=== PATIENT | male | born 1985 | race Caucasian/White ===

== ENCOUNTER 2019-11-17 19:04 | Emergency (ER) | payer SELFPAY ==
[2019-11-17 19:06] VITALS: BP 171/106; PULSE 106; RESP 16; O2SAT 99; BMI 30.7
--- NOTE | 2019-11-17 19:09 | XR_ITS ---
WS: [id number] KNEE RIGHT TECHNIQUE: 3 views of the right knee CLINICAL INFORMATION: INJURY COMPARISON: None. FINDINGS: Normal anatomic alignment. Mild soft tissue edema. No acute fractures. Small osteochondroma medial fe moral metaphysis XR/XR knee RT 3V* [id number] IMPRESSION: No acute fractures
--- NOTE | 2019-11-17 19:10 | W.ED.GENADLT ---
HPI - General Adult General: Chief complaint: Wound/Laceration Stated complaint: leg pain Time Seen by Provider: 11/17/19 19:06 History of Present Illness: HPI narrative: Stephane is a nice 34-year-old male who comes in complaining of increasing swelling and redness to his skin over his right knee. Approximately 9 days ago he was at work when he skinned his knee and had an abrasion that slowly been healing. The area has opened up and now he has redness on the skin surrounding this area. It is spreading mostly laterally and inferiorly from his wound. He denies any fevers or chills. He denies any nausea or vomiting. Associated symptoms: Deny chest pain, confusion, diaphoresis, dyspnea, headache(s), malaise, nausea, palpitations, syncope or vomiting Review of Systems General: Reports: other (negative unless marked) Const: Denies: fever, chills, body aches, fatigue, malaise or diaphoresis Eyes: Denies: change in vision or blurry vision ENMT: Denies: throat pain, painful swallowing, hoarseness, ear pain, ear discharge, Change in hearing or nasal discharge Card: Denies: chest pain, palpitations, irregular heart rhythm, syncope, pre-syncope, shortness of breath on exertion or shortness of breath when lying down Resp: Denies: shortness of breath, productive cough, non-productive cough, wheezing, coughing up blood or chest congestion GI: Denies: abdominal pain, nausea, vomiting, vomiting blood, coffee grounds in vomit, diarrhea, constipation, cramping, blood in stool or black tarry stool : Denies: flank pain, difficulty urinating, painful urination, urinary frequency, urinary urgency, decreased urine ouput, urinary incontinence or blood in urine Musc: Denies: neck pain, back pain, extremity pain, extremity swelling, joint pain, joint swelling, joint warmth or joint stiffness Neuro: Denies: headache, numbness in extremities, weakness in extremities, changes in sensation, lack of coordination, difficulty walking, dizziness, vertigo or confusion Endo: Denies: excessive thirst, tired all the time, cold intolerance, excessive sweating, flushing or hot flashes Bernardo/Lymph: Denies: easy bruising, easy bleeding, petechiae or enlarged lymph nodes All/Imm: Denies: hives, throat swelling, tongue swelling, facial swelling or acute wheezing PFSH ED PFSH: Medical History Anxiety Social History Smoking and tobacco status: never smoked Physical Exam Const: COMMON NORMALS: no apparent distress, oriented x3, no limitations, healthy appearing and well nourished EXAM LIMITATIONS: no altered mental status GENERAL APPEARANCE: cooperative, well kempt and well developed ORIENTATION/CONSCIOUSNESS: Yes awake HENMT: COMMON NORMALS: normocephalic, head/scalp atraumatic, hearing grossly normal bilaterally, external ears normal, EAC's normal, external nose normal and moist oral mucous membranes HEAD & SCALP: normal to inspection, normocephalic and atraumatic FACE & SINUS: normal facial exam and face symmetric NOSE: external nose normal and nares normal EXTERNAL EAR: Yes external ears normal EXTERNAL AUDITORY CANAL: EAC's normal MOUTH: oral and palatal mucosa normal and tongue normal Eye: COMMON NORMALS: PERRL, EOMs intact bilaterally, conjunctivae normal and no scleral icterus GENERAL EYE: normal appearance of both eyes and normal light reflex CONJUNCTIVA: Yes conjunctivae normal SCLERA: sclerae normal CORNEA: Yes corneas normal PUPIL: Yes PERRL DIRECT OPHTHALMOSCOPY: Yes normal light reflex Neck/C-Spine: COMMON NORMALS: full ROM, no lymphadenopathy, supple, no meningeal signs and no JVD GENERAL: Yes normal visual inspection and Yes trachea midline CERVICAL SPINE: Yes cervical ROM normal Chest: COMMONS NORMALS: inspection of chest normal and palpation of chest normal Resp: COMMON NORMALS: normal respiratory effort, no retractions, no use of accessory muscles and clear to auscultation bilaterally EFFORT & INSPECTION: Yes able to speak in complete sentences AUSCULTATION: clear to auscultation bilaterally Cardio: COMMON NORMALS: no JVD, regular rate, regular rhythm, S1 normal heart sound, S2 normal heart sound, no gallops, no clicks, no murmurs and no rub JUGULAR VENOUS DISTENTION: no JVD RATE: regular rate RHYTHM: regular rhythm HEART SOUNDS: S1 normal and S2 normal GI: COMMON NORMALS: soft to palpation, non-tender, no hepatosplenomegaly and no masses INSPECTION: Yes normal to inspection PALPATION: Yes soft and Yes no hepatosplenomegaly : COMMON NORMALS: Yes no CVA tenderness BLADDER/KIDNEY EXAM: Yes no CVA tenderness Back/Pelvis: COMMON NORMALS: no CVA tenderness, thoracic and lumbar spine normal to inspection, no thoracic nor lumbar tenderness and thoraco-lumbar ROM normal Extremity: COMMON NORMALS: normal to inspection, full ROM, normal capillary refill, no joint enlargement, no clubbing, cyanosis or edema and no calf tenderness Neuro: COMMON NORMALS: oriented x3, CN's II-XII intact bilaterally, moves all extremities, no focal motor deficits and no sensory deficits noted MENINGEAL SIGNS: Yes no meningeal signs Psych: COMMON NORMALS: mental status grossly normal, thought process normal, cooperative, affect normal, speech normal and activity/motor behavior normal APPEARANCE: Yes well kempt SPEECH: Yes normal speech THOUGHT PROCESS: normal thought process Skin: COMMON NORMALS: skin turgor normal, no jaundice, no petechiae and no mottling NARRATIVE SKIN EXAM: Healing abrasion noted over right lateral knee with surrounding cellulitis. GENERAL SKIN EXAM: turgor normal Course Vital Signs: Vital signs: Vital Signs Pulse Rate 106 H 11/17/19 19:06 Respiratory Rate 16 11/17/19 19:06 Blood Pressure 171/106 11/17/19 19:06 Pulse Oximetry 99 11/17/19 19:06 MDM - General Adult MDM Narrative: Medical decision making narrative: Stephane is a very nice 34-year-old male comes in after having scraped his knee several days ago he has had his scab reopened. He denies any foreign body sensation and he states when he skinned it he did not have anything go through his jeans and poked him in the skin it was just a simple abrasion. He appears to have some mild cellulitis associated with this at this time. He is able to walk and bear weight without any increased pain or limp. He has had no fever. I believe he is appropriate for outpatient therapy. There is no sign of deep space foreign body or joint infection at this time. Patient was given instructions on the reasons to return to the ER and he states he understands these, he has no other questions or concerns. Imaging Data^: Right knee: My impression: No acute fractures or dislocations. No foreign body seen. Discharge Plan Discharge Patient Disposition: Home, Self-Care Clinical Impression: Cellulitis Qualifiers: Site of cellulitis: extremity Site of cellulitis of extremity: lower extremity Laterality: right Qualified Code(s): L03.115 - Cellulitis of right lower limb Condition: Stable Prescriptions: New Bactrim DS 800-160 mg tablet 2 tab PO BID 10 Days Qty: 40 RF: 0 Discharge Orders: Discharge Order (Routine); Ordered 11/17/19 Ordered By: Jen Gomes Referrals: Jen Gomes [Emergency Provider] - (Return to the ER in 3 days if your area of infection is got getting worse. Otherwise follow-up with your regular doctor the next 5 to 7 days for recheck.) Discharge Diet: Advance as tolerated Discharge Activity: Increase activity as tolerated Patient Instructions: Cellulitis (ED) Activity Restrictions/Additional Instructions: Please return to the ER immediately for any of the signs or symptoms listed on your discharge instruction sheets, worsening/changing of your symptoms, you are not getting better as quickly as expected, or for ANY other cause or concerns. Return to the ER for fever, increased redness around your abrasion, increased pain, or for any other cause for concern. Be certain to return here if your wound is getting worse otherwise follow-up with your regular doctor in the next 5 to 7 days. Coding Level of Care Code ED Events Specialist for Mack Leung Exam Comprehensive
[2019-11-17] MEDS: sulfamethoxazole-trimeth DS 160-800 mg Tablet 2 TAB PO (19:51)
[2019-11-17 19:55] VITALS: BP 132/78; PULSE 68; RESP 16; O2SAT 99
== END 2019-11-17 19:56 | disposition home or self-care (01) ==
PROVIDERS: Emergency Provider Emergency Medicine
DX: L03.115 Cellulitis of right lower limb (principal)
CPT/HCPCS: 12345; 73562; 99281; 99283

== ENCOUNTER 2020-03-09 07:54 | Emergency (ER) | payer SELFPAY ==
[2020-03-09 08:00] VITALS: BP 147/104; PULSE 92; RESP 18; TEMP 36.1; O2SAT 100; BMI 32.5
--- NOTE | 2020-03-09 08:12 | ED_ITS ---
HPI - Extremity Problem General: Chief complaint: Extremity Injury, Lower Stated complaint: Left foot toe pain Time Seen by Provider: 03/09/20 07:59 History of Present Illness: HPI Narrative: Patient is a 34-year-old male comes to the ED with left great toe pain. Patient has had an episode of gout before approximately 3 to 4 months ago. Patient says it started approximately 7 days ago. Any touch to his great toe was painful and he has some erythema and warmth over the great toe as well. He was seen by urgent care on Sunday and they diagnosed him with gout and gave him dose of colchicine. Patient says the pain has not improved. He is also having some lower leg swelling with some tenderness in the mid calf region. Associated symptoms: Deny chest pain, fever(s) or rash Review of Systems Const: Denies: fever(s), chills or fatigue Eyes: Denies: change in vision or eye discomfort ENMT: Denies: throat pain, odynophagia, nasal discharge or nasal congestion Card: Denies: chest pain, palpitations, edema, swelling of feet/ankles, dyspnea on exertion or orthopnea Resp: Denies: dyspnea, productive cough or non-productive cough GI: Denies: abdominal pain, nausea, vomiting, diarrhea, constipation or hematochezia : Denies: flank pain, difficulty urinating, dysuria or hematuria Musc: Reports: joint pain (left great toe), joint redness (left great toe) and joint warmth (left great toe); Denies: neck pain, back pain or extremity swelling Skin/Breast: Denies: rash or new lesions Neuro: Denies: headache(s), numbness in extremities or weakness in extremities PFS ED PFSH: Medical History Anxiety Social History Smoking and tobacco status: never smoked Alcohol intake: current Physical Exam Const: COMMON NORMALS: no acute distress, patient oriented x3, healthy appearing and alert GENERAL APPEARANCE: cooperative HENMT: COMMON NORMALS: normocephalic HEAD & SCALP: normocephalic MOUTH: Normal oral and palatal mucosa present THROAT: posterior oropharynx normal and uvula midline Neck/C-Spine: COMMON NORMALS: supple GENERAL: Yes normal visual inspection Resp: COMMON NORMALS: normal respiratory effort, No retractions, No use of accessory muscles and clear to auscultation bilaterally AUSCULTATION: clear to auscultation bilaterally Cardio: COMMON NORMALS: regular rate, regular rhythm, S1 normal heart sound present, S2 normal heart sound present, No gallops present (Cardio), No clicks present (Cardio), No murmurs present (Cardio) and Peripheral pulses 2+ throughout RATE: regular rate RHYTHM: regular rhythm HEART SOUNDS: S1 normal heart sound present and S2 normal heart sound present PERIPHERAL PULSES: Peripheral pulses 2+ throughout GI: COMMON NORMALS: Normal to inspection, nondistended, normoactive bowel sounds present, Soft to palpation, non-tender and no masses PALPATION: Yes Soft to palpation : COMMON NORMALS: Yes no CVA tenderness BLADDER/KIDNEY EXAM: Yes no CVA tenderness Back/Pelvis: COMMON NORMALS: no CVA tenderness Extremity: NARRATIVE EXTREMITY EXAM: Patient's left great toe is tender to any touch, swelling, warmth and has erythema over metatarsophalangeal joint. Findings highly suggestive of gout. Patient also has some left calf tenderness upon palpation. GENERAL: Yes normal exam except as noted Neuro: COMMON NORMALS: patient oriented x3 and moves all extremities SENSORIUM/ORIENTATION: Yes alert Skin: COMMON NORMALS: no rashes or lesions noted GENERAL SKIN EXAM: no rashes or lesions noted and dry skin Course Vital Signs: Vital signs: Vital Signs Temperature 96.9 F L 03/09/20 08:00 Pulse Rate 70 03/09/20 08:56 Respiratory Rate 16 03/09/20 08:56 Blood Pressure 134/70 03/09/20 08:56 Pulse Oximetry 97 03/09/20 08:56 MDM - Extremity (Nontraumatic) MDM Narrative: Medical decision making narrative: Patient is a 34-year-old male who comes to the ED with pain in left great toe. Patient is past medical history of gout. Physical exam shows left great toe with swelling, erythema, warmth and tenderness over the joint. Patient was also experiencing some left calf tenderness. Ultrasound venous duplex of the left lower extremity was ordered and no blood clots or DVTs were seen. Patient was put on colchicine several days ago and it did not help. Today patient is given a prescription for prednisone, indomethacin and allopurinol. I directed him to follow-up with his PCP within the next 7 to 10 days to reevaluate. Return to ED precautions given. Patient understood and agreed with plan. Imaging Data^: US Vascular: Attestation: I personally reviewed and interpreted this imaging study as follows: Radiologist's impression: Ultrasound venous duplex of the left lower extremity?no DVTs or blood clots seen. Discharge Plan Discharge Patient Disposition: Home Clinical Impression: Acute gout Qualifiers: Gout site: toe Gout etiology: unspecified cause Laterality: left Qualified Code(s): M10.9 - Gout, unspecified Condition: Stable Prescriptions: New allopurinol 100 mg tablet 100 mg PO DAILY 21 Days Qty: 21 RF: 0 Medrol (Carlos) 4 mg tablets,dose pack See Rx Instructions .ROUTE .COMPLEX Qty: 21 RF: 0 indomethacin 50 mg capsule 50 mg PO TID 5 Days Qty: 15 RF: 0 No Action sertraline [Zoloft] 50 mg tablet 50 mg PO DAILY RF: 0 vitamin B complex Tablet 1 tab PO DAILY RF: 0 Vitamin C 1 tab PO DAILY RF: 0 apple cider vinegar 1 tab PO DAILY RF: 0 Discharge Orders: Discharge Order (Routine); Ordered 03/09/20 Ordered By: Amilcar Daly Referrals: Emilie Galvez FNP [Primary Care Provider] - Discharge Diet: As Directed Discharge Activity: Increase activity as tolerated Patient Instructions: Gout, Acute Gouty Arthritis (ED) Activity Restrictions/Additional Instructions: Follow-up with medical provider as directed in 7-10 days. Starting you on allopurinol which is a med that helps prevent gout flareups. This dose needs to be titrated up so follow up with PCP in the next couple weeks to discuss changing dose. Take medications as prescribed. Eat a low purine diet to help prevent acute gout attacks-Avoid/limit intake of alcohol and some meats like sausage. Return to the ER or your medical provider if condition worsens. Please read and understand discharge instructions. If any questions, please ask. Discharge Date/Time: 03/09/20 08:58 Coding Level of Care Code ED Pointer Machine Operator for Mack Fwjacob Exam Comprehensive
--- NOTE | 2020-03-09 08:14 | USCV_ITS ---
RamonaAnthony hayes Age: 34 Gender: M : 1985 Exam Date: 03/09/2020 08:31 Ordering Phys: Amilcar Daly Technologist: Anaid Galdamez [place] [facility] [place]: LT CALF PAIN HISTORY: LT lower extremity pain. FINDINGS: Normal 2-D Doppler and augmentation and compressibility throughout the left lower extremity venous structures. Additional imaging through the proximal calf veins also reveals no thrombus. Limited evaluation of the greater saphenous vein is patent with no thrombus.. CONCLUSIONS No evidence of left lower extremity DVT. David Olivera MD (Electronically Signed) Final Date: 09 March 2020 10:44 S
[2020-03-09 08:56] VITALS: BP 134/70; PULSE 70; RESP 16; O2SAT 97
[2020-03-09] MEDS: predniSONE 20 mg Tablet 60 MG PO (08:58)
== END 2020-03-09 08:58 | disposition home or self-care (01) ==
PROVIDERS: Emergency Provider Physician Assistant; PCP Nurse Practitioner Family
DX: M10.9 Gout, unspecified (principal)
CPT/HCPCS: 12345; 93971; 99283; J7512

== ENCOUNTER 2020-06-17 19:06 | Emergency (ER) | payer SELFPAY ==
[2020-06-17 19:34] VITALS: BP 173/91; PULSE 75; RESP 17; TEMP 36.8; O2SAT 97; BMI 31.6
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
[2020-06-17 19:56] VITALS: BP 133/98; PULSE 64; RESP 14; O2SAT 96
== END 2020-06-17 19:58 | disposition home or self-care (01) ==
PROVIDERS: Emergency Provider Nurse Practitioner Family; PCP Nurse Practitioner Family
DX: K21.00 Gastro-esophageal reflux disease with esophagitis, without bleeding (principal)
CPT/HCPCS: 12345; 99281; 99282

== ENCOUNTER 2021-04-02 22:05 | Emergency (ER) | payer OTHER, SELFPAY ==
--- NOTE | 2021-04-02 03:22 | XRR_ITS ---
PROCEDURE INFORMATION: Exam: XR Chest Exam date and time: 04/02/2021 3:22 AM Age: 35 years old Clinical indication: Pain; Right-sided; Additional info: R sided pain TECHNIQUE: Imaging protocol: XR of the chest. Views: 1 view. COMPARISON: CR Chest 1 [place] [id number] 06/22/2019 12:15 PM FINDINGS: Lungs: No CHF/pulmonary edema. Subtle opacity seen in the right costophrenic angle. This probably represents the area of parenchymal opacity seen on the earlier CT Abdomen/Pelvis. The other subtle area of opacity in the lower left lingula may be faintly visible on the chest x-ray, difficult to be certain. The overall appearance is suspicious for possible pneumonitis, please correlate clinically. Visible lungs otherwise appear essentially clear. Pleural spaces: No visible pneumothorax. No definite pleural fluid. Heart/Mediastinum: Heart size is within normal limits. Bones/joints: No significant acute finding. XR/XR chest 1V portable [id number] IMPRESSION: 1. Subtle opacity seen in the right costophrenic angle. This probably represents the area of parenchymal opacity seen on the earlier CT Abdomen/Pelvis. The other subtle area of opacity in the lower left lingula may be faintly visible on the chest x-ray, difficult to be certain. The overall appearance is suspicious for possible pneumonitis, please correlate clinically. 2. Visible lungs otherwise appear essentially clear. 3. Other findings discussed above.
[2021-04-02 22:10] VITALS: PULSE 71; RESP 16; TEMP 36.8; O2SAT 96; BMI 29.8
--- NOTE | 2021-04-02 22:52 | CTR_ITS ---
PROCEDURE INFORMATION: Exam: CT Abdomen And Pelvis With Contrast Exam date and time: 04/02/2021 10:52 PM Age: 35 years old Clinical indication: Abdominal pain; Generalized; Prior surgery; Surgery date: 6+ months; Surgery type: Appy; Patient HX: C/O R sided abd pain w nausea; Additional info: Right abd pain TECHNIQUE: Imaging protocol: Computed tomography of the abdomen and pelvis with contrast. Radiation optimization: All CT scans at this facility use at least one of these dose optimization techniques: automated exposure control; mA and/or kV adjustment per patient size (includes targeted exams where dose is matched to clinical indication); or iterative reconstruction. Contrast material: OMNI 300; Contrast volume: 95 ml; Contrast route: INTRAVENOUS (IV); COMPARISON: CT Abdomen/Pelvis Renal [id number] 12/16/2018 10:45 PM RADIATION DOSE METRICS: Total DLP (mGy-cm): 1415.31 FINDINGS: Lungs: Areas of parenchymal opacity in both lateral lower lungs, more prominent on the right. These are suspicious are areas of focal pneumonitis. Please correlate clinically. No pleural fluid. Liver: Unremarkable. Gallbladder and bile ducts: The gallbladder is partially contracted. No visible gallstones by CT. Ultrasound would be more sensitive for detecting gallstones, if clinically needed. No biliary tree dilation. Pancreas: Unremarkable. Spleen: Unremarkable. Adrenal glands: Unremarkable. Kidneys and ureters: No hydronephrosis of either kidney. No visible ureteral calculus. No perinephric fluid. The kidneys enhance homogeneously. Stomach and bowel: There are no CT findings to strongly suggest diverticulitis. Appendix: Reportedly, there has been prior appendectomy. Intraperitoneal space: No free air, ascites, or bowel distention. Vasculature: No evidence for abdominal aortic aneurysm. Lymph nodes: No retroperitoneal adenopathy. Urinary bladder: Possibly some mild diffuse urinary bladder wall thickening. Evaluation is somewhat limited, as the bladder is not well distended. While nonspecific, this could indicate evidence for cystitis. Please correlate clinically. Reproductive: Essentially unremarkable for age. Bones/joints: There is bilateral L5 spondylolysis, with grade 1 spondylolisthesis, similar to prior exam. Soft tissues: Very small umbilical hernia, containing only fat. CT/CT abdomen pelvis w con* [id number] IMPRESSION: 1. No free air or bowel distention. No evidence for bowel obstruction. 2. Possible mild urinary bladder wall thickening, see above. 3. No hydronephrosis of either kidney. No visible ureteral calculus. No perinephric fluid. 4. No visible gallstones by CT. 5. Lower lung opacities, see above. 6. Other findings discussed above. Radiation Dose CTDIVOL = (mGy): DLP = 1415.31 (mGy-cm)
[2021-04-02 23:05] VITALS: BP 123/83; PULSE 75; RESP 18; O2SAT 98
[2021-04-02] MEDS: sodium chloride 0.9% 1,000 ML 999 ML IV (23:06)
[2021-04-02] MEDS: iohexol 300 mg/mL 100 mL Btl IV (23:24)
[2021-04-02 23:33] LABS: Basophils # 0.1 10^3/uL (0.0-0.1); Basophils % 0.6 %; Eosinophils # 0.6 10^3/uL (0.0-0.8); Eosinophils % 3.3 %; Hematocrit 40.4 % (42.0-52.0); Hemoglobin 13.7 g/dL (11.7-16.6); Lymphocytes # 4.9 10^3/uL (0.8-4.8); Lymphocytes % 26.1 %; Mean Corpuscular HGB Conc 33.9 g/dL (30.0-36.0); Mean Corpuscular Hemoglobin 33.3 pg (28.0-34.0); Mean Corpuscular Volume 98.1 fl (80-94); Mean Platelet Volume 9.4 fL (7.4-10.4); Monocytes # 1.3 10^3/uL (0.2-0.9); Monocytes % 6.9 %; Neutrophils # 11.03 10^3/uL (1.8-7.7); Neutrophils % 58.9 %; Nucleated Red Blood Cells % 0 %; Platelet Count 350 10^3/cmm (130-400); Red Blood Count 4.12 10^6/uL (4.1-5.3); Red Cell Distribution Width 12.2 % (12.1-15.1); White Blood Count 18.7 10^3/uL (4.0-10.0)
[2021-04-02 23:35] LABS: Alanine Aminotransferase 12 U/L (0-41); Albumin Level 3.8 g/dL (3.5-5.2); Alkaline Phosphatase 83 IU/L (40-130); Anion Gap 15.3 (5-19); Aspartate Amino Transferase 14 U/L (0-40); Blood Urea Nitrogen 12 mg/dL (6-20); C Reactive Protein 9.6 mg/L (0.0-4.9); Calcium 8.5 mg/dL (8.5-10.5); Carbon Dioxide 27 mmol/L (22-29); Chloride 103 mmol/L (98-107); Creatinine Clr Calc Pharmacy 152.5302; D Dimer 1.03 ug/mIFEU (0-0.59); Glomerular Filtration Rate 129.9 mL/min (90-130); Glucose 112 mg/dL (65-115); Lipase 32 U/L (13-60); Osmolality Calculated 295 mOsm/kg (285-295); Potassium 3.3 mmol/L (3.5-5.1); Sodium 142 mmol/L (136-145); Total Bilirubin 0.2 mg/dL (0.15-1.2); Total Protein 6.8 g/dL (6.6-8.7)
[2021-04-02 23:36] LABS: Alcohol Level < 10 mg/dL (0-10)
--- NOTE | 2021-04-03 01:27 | CTR_ITS ---
PROCEDURE INFORMATION: Exam: CTA Chest With Contrast Exam date and time: 04/03/2021 1:27 AM Age: 35 years old Clinical indication: Pain and abnormal findings; Abnormal diagnostic tests; Elevated d-dimer; Sternal or substernal pain; Additional info: Chest pain TECHNIQUE: Imaging protocol: Computed tomographic angiography of the chest with contrast. 3D rendering (Not supervised by radiologist): MIP and/or 3D reconstructed images were created by the technologist. Radiation optimization: All CT scans at this facility use at least one of these dose optimization techniques: automated exposure control; mA and/or kV adjustment per patient size (includes targeted exams where dose is matched to clinical indication); or iterative reconstruction. Contrast material: OMNI 350; Contrast volume: 95 ml; Contrast route: INTRAVENOUS (IV); COMPARISON: No relevant prior studies available. RADIATION DOSE METRICS: Total DLP (mGy-cm): 606.62 FINDINGS: Pulmonary arteries: No definite filling defect to suggest the diagnosis of acute pulmonary embolus. Aorta: No evidence of thoracic aortic dissection or focal aneurysm. Lungs: Focal area of parenchymal opacification in the lateral right lower lobe/costophrenic angle, measuring about 35 x 15 mm in size. Rounded focal area of similar appearing subpleural opacity in the lateral lower left lingula, measuring 17 x 12 mm. There is a 3rd small 10 mm rounded area of opacity in the medial right lower lobe. I suspect these represent focal areas of pneumonitis. Neoplasm would be unlikely in this relatively young age group. No obvious cavitary lesions to strongly suggest lung abscess, however septic emboli might still be considered, especially if there is history of endocarditis or other predisposition. Please correlate clinically. No other significant parenchymal lung opacity or mass. Pleural spaces: No pleural fluid. Heart: No significant pericardial effusion. Mediastinal space: No evidence for pneumomediastinum or pneumothorax. Lymph nodes: No significant hilar or mediastinal lymphadenopathy. Bones/joints: No significant acute finding. Soft tissues: No significant acute finding. Other findings: Images that include the upper abdomen appear essentially unremarkable. CT/CT angio chest PE protcl [id number] IMPRESSION: 1. Areas of focal parenchymal opacity in the right lower lobe, and lower left lingula. Please see above details/discussion. 2. No pleural fluid. 3. No definite evidence of acute pulmonary embolus. 4. No evidence of thoracic aortic dissection or focal aneurysm. 5. Other findings discussed above. Radiation Dose CTDIVOL = (mGy): DLP = 606.62 (mGy-cm)
[2021-04-03] MEDS: sodium chloride 0.9% 500 ML 999 ML IV (01:42)
--- NOTE | 2021-04-03 01:49 | W.ED.ABDPA2 ---
HPI - Abdominal Pain General: Chief Complaint: Abdominal Pain Stated Complaint: R SIDED ABD PAIN Time Seen by Provider: 04/02/21 22:19 History of Present Illness: HPI narrative: 35-year-old male who complains of 2 weeks of right-sided upper belly and chest discomfort. He denies any cough or fever. He does have chills at night he says for the last 2 weeks. He denies shortness of breath. Pain became worse today, so he decided to come to the hospital. He does drink alcohol daily, but has cut back the last couple of days MD elicited complaint: abdominal pain Pertinent past history: other Onset (ago): day(s) (14) Pain Consistency: constant Location: Chest, RUQ and R flank Quality: aching and sharp Radiation: chest and other (Right shoulder) Migration to: no migration Exacerbating factors: eating Relieving factors: nothing Associated Symptoms: Reports nausea; Denies change in stool character, constipation, GI cramping, diarrhea, excessive flatus, fever(s) and vomiting Review of Systems Const: Denies: fever(s) Card: Reports: chest pain Resp: Denies: dyspnea, productive cough or non-productive cough GI: Reports: nausea; Denies: vomiting, diarrhea, constipation, GI cramping, excessive flatus or change in stool character PFS ED PFSH: Medical History (Updated 04/03/21 @ 03:55 by Wilfredo Salazar DO) Anxiety Social History Smoking and tobacco status: never smoked Alcohol intake: current Physical Exam Const: COMMON NORMALS: no acute distress, patient oriented x3 and alert Chest: COMMONS NORMALS: normal inspection of the chest CHEST: No tenderness Resp: COMMON NORMALS: normal respiratory effort, No use of accessory muscles and clear to auscultation bilaterally AUSCULTATION: clear to auscultation bilaterally Cardio: COMMON NORMALS: regular rate and regular rhythm RATE: regular rate RHYTHM: regular rhythm GI: COMMON NORMALS: Normal to inspection, nondistended, normoactive bowel sounds present PALPATION: Yes Tenderness to palpation present (GI) Details: RUQ Neuro: COMMON NORMALS: patient oriented x3 SENSORIUM/ORIENTATION: Yes alert Course Vital Signs: Vital signs: Vital Signs Temperature 98.2 F 04/02/21 22:10 Pulse Rate 61 04/03/21 02:48 Respiratory Rate 16 04/03/21 02:48 Blood Pressure 114/79 04/03/21 02:48 Pulse Oximetry 97 04/03/21 02:48 MDM - Abdominal Pain MDM Narrative: Medical decision making narrative: 35-year-old male with right upper belly and lateral right chest pain. His white blood cell count is 18.7 with a normal shift. His potassium is low at 3.3. His alcohol level is nondetectable. His CT of the belly, done for assumed gastritis versus biliary colic, was negative, but was suspicious for infiltrates in the lungs. CTA of the chest, done because of an elevated D-dimer and above, shows no PE. There are infiltrates in the right lower lobe and left lingula. He will be treated as an outpatient for pneumonia. His rapid Covid antigen was negative here. A PCR has been sent Lab Data: Labs: Lab Results 04/02/21 04/02/21 04/02/21 Range/Units 23:00 23:00 23:00 WBC 18.7 H (4.0-10.0) 10^3/ uL RBC 4.12 (4.1-5.3) 10^6/u L Hgb 13.7 (11.7-16.6) g/dL Hct 40.4 L (42.0-52.0) % MCV 98.1 H (80-94) fl MCH 33.3 (28.0-34.0) pg MCHC 33.9 (30.0-36.0) g/dL RDW 12.2 (12.1-15.1) % Plt Count 350 (130-400) 10^3/c mm MPV 9.4 (7.4-10.4) fL Neut % (Auto) 58.9 % Lymph % (Auto) 26.1 % [place] % (Auto) 6.9 % Eos % (Auto) 3.3 % Baso % (Auto) 0.6 % Neut # (Auto) 11.03 H (1.8-7.7) 10^3/u L Lymph # (Auto) 4.9 H (0.8-4.8) 10^3/u L [place] # (Auto) 1.3 H (0.2-0.9) 10^3/u L Eos # (Auto) 0.6 (0.0-0.8) 10^3/u L Baso # (Auto) 0.1 (0.0-0.1) 10^3/u L Nucleated RBC % (a uto) 0 % Nucleated RBCs # 0.0 /100WBC PT 13.50 (12.1-14.9) SECO NDS INR 1.00 (0.8-1.2) D-Dimer 1.03 H (0-0.59) ug/mIFE U Sodium 142 (136-145) mmol/L Potassium 3.3 L (3.5-5.1) mmol/L Chloride 103 (98-107) mmol/L Carbon Dioxide 27 (22-29) mmol/L Anion Gap 15.3 (5-19) BUN 12 (6-20) mg/dL Creatinine 0.7 (0.7-1.2) mg/dL GFR Calculation 129.9 (90-130) mL/min Glucose 112 (65-115) mg/dL Calculated Osmolal ity 295 (285-295) mOsm/k g Lactate (0.5-2.2) mmol/L Calcium 8.5 (8.5-10.5) mg/dL Total Bilirubin 0.2 (0.15-1.2) mg/dL AST 14 (0-40) U/L ALT 12 (0-41) U/L Alkaline Phosphata se 83 (40-130) IU/L C-Reactive Protein 9.6 H (0.0-4.9) mg/L Total Protein 6.8 (6.6-8.7) g/dL Albumin 3.8 (3.5-5.2) g/dL Globulin 3.0 (1.3-4.6) g/dL Lipase 32 (13-60) U/L Ethyl Alcohol < 10 (0-10) mg/dL SARS-CoV-2 Ag (Rap id) (Negative) 04/02/21 04/03/21 Range/Units 23:53 01:00 WBC (4.0-10.0) 10^3/ uL RBC (4.1-5.3) 10^6/u L Hgb (11.7-16.6) g/dL Hct (42.0-52.0) % MCV (80-94) fl MCH (28.0-34.0) pg MCHC (30.0-36.0) g/dL RDW (12.1-15.1) % Plt Count (130-400) 10^3/c mm MPV (7.4-10.4) fL Neut % (Auto) % Lymph % (Auto) % [place] % (Auto) % Eos % (Auto) % Baso % (Auto) % Neut # (Auto) (1.8-7.7) 10^3/u L Lymph # (Auto) (0.8-4.8) 10^3/u L [place] # (Auto) (0.2-0.9) 10^3/u L Eos # (Auto) (0.0-0.8) 10^3/u L Baso # (Auto) (0.0-0.1) 10^3/u L Nucleated RBC % (a uto) % Nucleated RBCs # /100WBC PT (12.1-14.9) SECO NDS INR (0.8-1.2) D-Dimer (0-0.59) ug/mIFE U Sodium (136-145) mmol/L Potassium (3.5-5.1) mmol/L Chloride (98-107) mmol/L Carbon Dioxide (22-29) mmol/L Anion Gap (5-19) BUN (6-20) mg/dL Creatinine (0.7-1.2) mg/dL GFR Calculation (90-130) mL/min Glucose (65-115) mg/dL Calculated Osmolal ity (285-295) mOsm/k g Lactate 1.0 (0.5-2.2) mmol/L Calcium (8.5-10.5) mg/dL Total Bilirubin (0.15-1.2) mg/dL AST (0-40) U/L ALT (0-41) U/L Alkaline Phosphata se (40-130) IU/L C-Reactive Protein (0.0-4.9) mg/L Total Protein (6.6-8.7) g/dL Albumin (3.5-5.2) g/dL Globulin (1.3-4.6) g/dL Lipase (13-60) U/L Ethyl Alcohol (0-10) mg/dL SARS-CoV-2 Ag (Rap id) Negative (Negative) Discharge Plan Discharge Patient Disposition: Home Clinical Impression: Pneumonia Qualifiers: Pneumonia type: due to unspecified organism Laterality: bilateral Lung location: unspecified part of lung Qualified Code(s): J18.9 - Pneumonia, unspecified organism Condition: Stable Prescriptions: New doxycycline hyclate 100 mg capsule 100 mg PO BID 10 Days Qty: 20 RF: 0 ketorolac 10 mg tablet 10 mg PO TID PRN (Reason: pain) Qty: 10 RF: 0 No Action vitamin B complex Tablet 1 tab PO DAILY RF: 0 Vitamin C 1 tab PO DAILY RF: 0 escitalopram oxalate 10 mg PO DAILY RF: 0 Discharge Orders: Discharge ED (Routine); Ordered 04/03/21 Ordered By: Wilfredo Salazar Referrals: Emilie Galvez FNP [Primary Care Provider] - 4-7 days Discharge Diet: Advance as tolerated Discharge Activity: Limit activity as instructed Patient Instructions: Pneumonia (ED) Activity Restrictions/Additional Instructions: Return for worsening pain despite treatment, worsening shortness of breath, inability to tolerate liquids, other concerning symptoms. You should quarantine at home until with the definitive PCR COVID-19 test is back and is deemed negative. Coding Level of Care Code ED [facility] Manager for [place] Fwd Exam Detailed
[2021-04-03 01:51] LABS: SARS Covid-2 Antigen Negative (Negative)
[2021-04-03] MEDS: iohexol 350 mg/mL 100 mL Btl IV (01:59)
[2021-04-03 02:48] VITALS: BP 114/79; PULSE 61; RESP 16; O2SAT 97
[2021-04-03] MEDS: doxycycline 100 mg Tablet PO (04:11)
[2021-04-03] MEDS: ketorolac 30 mg/mL INJ 15 MG IVP (04:11)
[2021-04-03 04:16] VITALS: BP 99/66; PULSE 72; RESP 18; O2SAT 98
[2021-04-04 19:58] LABS: Quest SARS-CoV-2 RNA NOT DETECTED (NOT DETECTED)
== END 2021-04-03 04:18 | disposition home or self-care (01) ==
PROVIDERS: Emergency Provider Emergency Medicine; PCP Nurse Practitioner Family
DX: J18.9 Pneumonia, unspecified organism (principal); Z20.822 Contact with and (suspected) exposure to COVID-19
CPT/HCPCS: 71045; 71275; 74177; 80053; 80307; 83605; 83690; 85025; 85378; 85610; 86140; 87426; 87635; 96361; 96374; 99284; J1885; J7030; J7040; Q9967

== ENCOUNTER 2021-09-11 17:33 | Emergency (ER) | payer SELFPAY ==
[2021-09-11 17:48] VITALS: BP 153/89; PULSE 98; RESP 18; TEMP 37.3; O2SAT 97; BMI 34.3
--- NOTE | 2021-09-11 19:05 | W.ED.EXTPRO ---
HPI - Extremity Problem General: Chief complaint: Extremity Problem,Nontraumatic Stated complaint: Pt states Gout in Right foot and spredding Time Seen by Provider: 09/11/21 18:53 History of Present Illness: Patient is a 35-year-old male comes to the ED with pain in right foot. Patient says he has a history of gout and is having another flareup. He takes allopurinol currently. It started approximately a week ago. He is having pain in his great toe along with swelling and warmth. He rates the pain currently a 12 out of 10. Says any pressure or light touch on great toe of right foot causes pain. Denies any injury or trauma to cause symptoms. Associated symptoms: Deny chest pain, fever(s) or rash Review of Systems Const: Denies: fever(s), chills or fatigue Eyes: Denies: change in vision or eye discomfort ENMT: Denies: throat pain, odynophagia, nasal discharge or nasal congestion Card: Denies: chest pain, palpitations, edema, swelling of feet/ankles, dyspnea on exertion or orthopnea Resp: Denies: dyspnea, productive cough or non-productive cough GI: Denies: abdominal pain, nausea, vomiting, diarrhea, constipation or hematochezia : Denies: flank pain, difficulty urinating, dysuria or hematuria Musc: Reports: joint pain (Right great toe metatarsophalangeal joint), joint swelling (Right great toe metatarsophalangeal joint), joint redness (Right great toe metatarsophalangeal joint) and joint warmth (Right great toe metatarsophalangeal joint); Denies: neck pain, back pain or extremity swelling Skin/Breast: Denies: rash or new lesions Neuro: Denies: headache(s) [facility] ED PFSH: Medical History Anxiety Gout Surgical History No pertinent past surgical history Social History Smoking and tobacco status: never smoked Alcohol intake: current Physical Exam Const: COMMON NORMALS: no acute distress, patient oriented x3, healthy appearing and alert GENERAL APPEARANCE: cooperative and comfortable HENMT: COMMON NORMALS: normocephalic HEAD & SCALP: normocephalic MOUTH: Normal oral and palatal mucosa present THROAT: posterior oropharynx normal and uvula midline Eye: COMMON NORMALS: Equal, round and reactive pupils present and conjunctivae normal CONJUNCTIVA: Yes conjunctivae normal PUPIL: Yes Equal, round and reactive pupils present Neck/C-Spine: COMMON NORMALS: supple GENERAL: Yes normal visual inspection Resp: COMMON NORMALS: normal respiratory effort, No retractions, No use of accessory muscles and clear to auscultation bilaterally AUSCULTATION: clear to auscultation bilaterally Cardio: COMMON NORMALS: regular rate, regular rhythm, S1 normal heart sound present, S2 normal heart sound present, No gallops present (Cardio), No clicks present (Cardio), No murmurs present (Cardio) and Peripheral pulses 2+ throughout RATE: regular rate RHYTHM: regular rhythm HEART SOUNDS: S1 normal heart sound present and S2 normal heart sound present PERIPHERAL PULSES: Peripheral pulses 2+ throughout GI: COMMON NORMALS: Normal to inspection, nondistended, normoactive bowel sounds present, Soft to palpation, non-tender and no masses PALPATION: Yes Soft to palpation : COMMON NORMALS: Yes no CVA tenderness BLADDER/KIDNEY EXAM: Yes no CVA tenderness Back/Pelvis: COMMON NORMALS: no CVA tenderness Extremity: RIGHT LOWER EXTREMITY: Yes foot & digits (Great toe metatarsophalangeal joint) Right foot and digits: Yes inspection (Erythema, warmth and swelling.), Yes palpation (Tender to palpation), Yes ROM (Limited due to pain) and Yes neurovascular exam (Intact) Neuro: COMMON NORMALS: patient oriented x3 and moves all extremities SENSORIUM/ORIENTATION: Yes alert Skin: GENERAL SKIN EXAM: dry skin Course Vital Signs: Vital signs: Vital Signs Temperature 99.1 F 09/11/21 17:48 Pulse Rate 98 09/11/21 17:48 Respiratory Rate 16 09/11/21 20:09 Blood Pressure 153/89 09/11/21 17:48 Pulse Oximetry 97 09/11/21 17:48 MDM - Extremity (Nontraumatic) Medical Decision Making Patient is a 35-year-old male comes to the ED with pain and swelling in great toe. Patient has a history of gout and currently takes allopurinol. Symptoms are just like past gout attacks. Exam shows swelling, warmth redness and tenderness to the right foot great toe metatarsophalangeal joint. X-ray of right foot shows some soft tissue swelling her dorsal left foot, no fracture and notes some degenerative changes of the first MTP joint. Patient was given a dose of colchicine and hydrocodone while here in the ED. He was then sent home with the second dose of colchicine, a prescription for [place] and prednisone. Patient discharged and told to follow-up with PCP in next 5 to 7 days for reevaluation. Return to ED precautions given. Patient understood agree with plan. Lab Data Radiology Impressions Foot X-Ray 09/11/21 19:07 IMPRESSION: 1. Degenerative changes of the 1st MTP joint. 2. Mild soft tissue swelling over the dorsum of the foot. 3. No fracture. Discharge Plan Discharge Patient Disposition: Home Clinical Impression: Gout Qualifiers: Gout site: toe Gout etiology: unspecified cause Chronicity: acute Laterality: right Qualified Code(s): M10.9 - Gout, unspecified Condition: Stable Prescriptions: New prednisone 20 mg tablet 20 mg PO BID 7 Days Qty: 14 0RF No Action vitamin B complex Tablet 1 tab PO DAILY 0RF Vitamin C 1 tab PO DAILY 0RF escitalopram oxalate 10 mg PO DAILY 0RF ketorolac 10 mg tablet 10 mg PO TID PRN (Reason: pain) Qty: 10 0RF Discharge Orders: Discharge ED (Routine); Ordered 09/11/21 Ordered By: Amilcar Daly Referrals: Emilie Galvez FNP [Primary Care Provider] - Discharge Diet: Regular Discharge Activity: Increase activity as tolerated Patient Instructions: Opioid Safety Activity Restrictions/Additional Instructions: Follow-up with medical provider as directed in the next 5 to 7 days for reevaluation. Take medications as prescribed. The dose of colchicine I am sending home with you needs to be taken around 8:25 tonight. return to the ER or your medical provider if condition worsens. Please read and understand discharge instructions. Thank you for choosing [facility] for your healthcare needs today. Please realize this is an emergency room and that we are providing you with a medical screening exam and this may not be complete and all inclusive of all the testing and or work up that you may need to determine your ailment or severity of your illness. It is very important that you follow up as instructed or that you return to the Emergency Department should you have concerns or if your condition changes or worsens in any way. Coding Level of Care Code ED Infertility Medical Assistant for [place] Fwd Exam Comprehensive
--- NOTE | 2021-09-11 19:07 | XRR_ITS ---
PROCEDURE INFORMATION: Exam: XR Right Foot Exam date and time: 09/11/2021 7:07 PM Age: 35 years old Clinical indication: Right; Patient HX: Pain and swelling to entire foot x 1 week, no known injury; Additional info: Right great toe pain and swelling TECHNIQUE: Imaging protocol: XR Right foot. Views: 3 or more views. COMPARISON: No relevant prior studies available. FINDINGS: There are mild degenerative changes of the 1st MTP joint. The remaining joint spaces are well maintained. There is mild soft tissue swelling over the dorsum of the foot. There is no fracture or foreign body. XR/XR foot RT min 3V* [id number] IMPRESSION: 1. Degenerative changes of the 1st MTP joint. 2. Mild soft tissue swelling over the dorsum of the foot. 3. No fracture.
[2021-09-11] MEDS: HYDROcodone-acetaminophen 7.5-325 mg Tablet 1 TAB PO (19:22)
[2021-09-11] MEDS: colchicine 0.6 mg Tablet 1.2 MG PO (19:23)
[2021-09-11 20:09] VITALS: RESP 16
== END 2021-09-11 20:10 | disposition home or self-care (01) ==
PROVIDERS: Emergency Provider Physician Assistant; PCP Nurse Practitioner Family
DX: M10.9 Gout, unspecified (principal)
CPT/HCPCS: 73630; 99283

== ENCOUNTER 2021-11-17 07:25 | Emergency (ER) | payer SELFPAY ==
--- NOTE | 2021-11-17 07:29 | XR_ITS ---
WS: [id number] Exam: XR chest 1V portable [id number] Date/Time of Exam: 11/17/2021 7:31 AM Reason For Exam: CP Comparison 04/02/2021. Findings: The lungs are clear and fully expanded. Costophrenic angles are sharp. No infiltrates. Bronchovascula r relief appears normal. Cardiac silhouette is unremarkable. Bony elements are intact. XR/XR chest 1V portable [id number] IMPRESSION: Unremarkable chest radiograph.
[2021-11-17 07:30] VITALS: PULSE 83; RESP 17; TEMP 36.5; O2SAT 99; BMI 33.3
--- NOTE | 2021-11-17 07:30 | ECG_ITS ---
[facility] Test Date: 2021-11-17 Pat Name: Anthony Olson Department: Room: Gender: Male Dba Manager: : 1985 Requested By: Amilcar Daly Order Number: [id number] Mosher MD: Gwen Coates M.D. Measurements Intervals [place] Rate: 73 P: 60 AL: 159 QRS: 33 QRSD: 101 T: 28 QT: 352 QTc: 389 Interpretive Statements SINUS RHYTHM WITH SINUS ARRHYTHMIA Compared to ECG 06/22/2019 14:30:13 No significant changes Electronically Signed On 11-17-2021 16:45:36 CDT by Gwen Coates M.D. [email or web address]
--- NOTE | 2021-11-17 07:37 | W.ED.CHESTPA ---
HPI - Chest Pain General: Chief Complaint: Chest Pain Stated Complaint: chest pain Time Seen by Provider: 11/17/21 07:29 History of Present Illness: Patient is a 36-year-old male comes to the ED with chest discomfort and shortness of breath. Patient has a history of anxiety. Symptoms started approximately 2 weeks ago. He describes the chest pain as sort of a chest heaviness/discomfort and he feels like he cannot catch his breath during that time. He also reports having some excessive gas lately. He stated that during the night when he is laying there thinking of about it his symptoms get worse. Denies any cough, fevers. Endorses some nausea with 2 episodes of emesis over the last week. Patient also says he has not been sleeping well lately for the past couple weeks and thinks that could have something to do with his increased anxiety and symptoms. Associated symptoms: Reports dyspnea; Deny abdominal pain, fever(s), nausea, palpitations or vomiting Review of Systems Const: Denies: fever(s), chills or fatigue Eyes: Denies: change in vision or eye discomfort ENMT: Denies: throat pain, odynophagia, nasal discharge or nasal congestion Card: Reports: chest pain; Denies: palpitations, edema, swelling of feet/ankles, dyspnea on exertion or orthopnea Resp: Reports: dyspnea; Denies: productive cough or non-productive cough GI: Denies: abdominal pain, nausea, vomiting, diarrhea, constipation or hematochezia : Denies: flank pain, difficulty urinating, dysuria or hematuria Musc: Denies: neck pain, back pain or extremity swelling Skin/Breast: Denies: rash or new lesions Neuro: Denies: headache(s), numbness in extremities or weakness in extremities [facility] ED PFSH: Medical History Anxiety Gout Surgical History No pertinent past surgical history Social History Smoking and tobacco status: never smoked Alcohol intake: current Physical Exam Const: COMMON NORMALS: no acute distress, patient oriented x3 and alert GENERAL APPEARANCE: cooperative and comfortable HENMT: COMMON NORMALS: normocephalic HEAD & SCALP: normocephalic MOUTH: Normal oral and palatal mucosa present THROAT: posterior oropharynx normal and uvula midline Eye: COMMON NORMALS: Equal, round and reactive pupils present and conjunctivae normal CONJUNCTIVA: Yes conjunctivae normal PUPIL: Yes Equal, round and reactive pupils present Neck/C-Spine: COMMON NORMALS: supple GENERAL: Yes normal visual inspection Resp: COMMON NORMALS: normal respiratory effort, No retractions, No use of accessory muscles and clear to auscultation bilaterally AUSCULTATION: clear to auscultation bilaterally Cardio: COMMON NORMALS: regular rate, regular rhythm, S1 normal heart sound present, S2 normal heart sound present, No gallops present (Cardio), No clicks present (Cardio), No murmurs present (Cardio) and Peripheral pulses 2+ throughout RATE: regular rate RHYTHM: regular rhythm HEART SOUNDS: S1 normal heart sound present and S2 normal heart sound present PERIPHERAL PULSES: Peripheral pulses 2+ throughout GI: COMMON NORMALS: Normal to inspection, nondistended, normoactive bowel sounds present, Soft to palpation, non-tender and no masses PALPATION: Yes Soft to palpation : COMMON NORMALS: Yes no CVA tenderness BLADDER/KIDNEY EXAM: Yes no CVA tenderness Back/Pelvis: COMMON NORMALS: no CVA tenderness Extremity: COMMON NORMALS: normal to inspection Neuro: COMMON NORMALS: patient oriented x3 and moves all extremities SENSORIUM/ORIENTATION: Yes alert Skin: GENERAL SKIN EXAM: dry skin Course Vital Signs: Vital signs: Vital Signs Temperature 97.7 F 11/17/21 07:54 Pulse Rate 78 11/17/21 09:51 Respiratory Rate 16 11/17/21 09:51 Blood Pressure 144/73 11/17/21 09:51 Pulse Oximetry 98 11/17/21 09:51 MDM - Chest Pain Medical Decision Making Patient is a 36-year-old male comes to the ED with chest pain. Has been going on for the past 2 weeks. He has a history of anxiety. Vitals are stable. Exam of patient is benign he appears in no acute distress or pain. CBC and CMP were unremarkable. Troponin negative. EKG showed normal sinus rhythm with no ST segment elevation or depression seen. Chest x-ray showed no acute findings. Patient's symptoms improved just while sitting here in the ED. Patient was diagnosed with noncardiac chest pain, likely from acute anxiety and was discharged home with a prescription for Vistaril. He was told to follow-up with his PCP in the next week for reevaluation. Patient understood and agreed with plan. Lab Data I reviewed the patient's lab results. : 11/17/21 07:49 11/17/21 07:49 Radiology Impressions Chest X-Ray 11/17/21 07:29 IMPRESSION: Unremarkable chest radiograph. Laboratory Results WBC 8.3 10^3/uL (4.0-10.0) 11/17/21 07:49 RBC 4.51 10^6/uL (4.1-5.3) 11/17/21 07:49 Hgb 14.9 g/dL (11.7-16.6) 11/17/21 07:49 Hct 43.2 % (42.0-52.0) 11/17/21 07:49 MCV 95.8 fl (80-94) H 11/17/21 07:49 MCH 33.0 pg (28.0-34.0) 11/17/21 07:49 MCHC 34.5 g/dL (30.0-36.0) 11/17/21 07:49 RDW 12.9 % (12.1-15.1) 11/17/21 07:49 Plt Count 330 10^3/cmm (130-400) 11/17/21 07:49 MPV 9.5 fL (7.4-10.4) 11/17/21 07:49 Neut % (Auto) 60.9 % 11/17/21 07:49 Lymph % (Auto) 28.2 % 11/17/21 07:49 [place]al[place] % (Auto) 8.6 % 11/17/21 07:49 Eos % (Auto) 0.7 % 11/17/21 07:49 Baso % (Auto) 0.6 % 11/17/21 07:49 Neut # (Auto) 5.04 10^3/uL (1.8-7.7) 11/17/21 07:49 Lymph # (Auto) 2.3 10^3/uL (0.8-4.8) 11/17/21 07:49 [place]ier # (Auto) 0.7 10^3/uL (0.2-0.9) 11/17/21 07:49 Eos # (Auto) 0.1 10^3/uL (0.0-0.8) 11/17/21 07:49 Baso # (Auto) 0.1 10^3/uL (0.0-0.1) 11/17/21 07:49 Nucleated RBC % (auto) 0 % 11/17/21 07:49 Nucleated RBCs # 0.0 /100WBC 11/17/21 07:49 Sodium 137 mmol/L (136-145) 11/17/21 07:49 Potassium 4.0 mmol/L (3.5-5.1) 11/17/21 07:49 Chloride 100 mmol/L (98-107) 11/17/21 07:49 Carbon Dioxide 25 mmol/L (22-29) 11/17/21 07:49 Anion Gap 16.0 (5-19) 11/17/21 07:49 BUN 9 mg/dL (6-20) 11/17/21 07:49 Creatinine 0.8 mg/dL (0.7-1.2) 11/17/21 07:49 GFR Calculation 110.7 mL/min (90-130) 11/17/21 07:49 Glucose 97 mg/dL (65-115) 11/17/21 07:49 Calculated Osmolality 283 mOsm/kg (285-295) L 11/17/21 07:49 Calcium 9.4 mg/dL (8.5-10.5) 11/17/21 07:49 Total Bilirubin 0.8 mg/dL (0.15-1.2) 11/17/21 07:49 AST 18 U/L (0-40) 11/17/21 07:49 ALT 17 U/L (0-41) 11/17/21 07:49 Alkaline Phosphatase 69 IU/L (40-130) 11/17/21 07:49 Troponin T Baseline 6 ng/L (0-15) 11/17/21 08:11 Total Protein 7.1 g/dL (6.6-8.7) 11/17/21 07:49 Albumin 4.7 g/dL (3.5-5.2) 11/17/21 07:49 Globulin 2.4 g/dL (1.3-4.6) 11/17/21 07:49 Lipase 21 U/L (13-60) 11/17/21 07:49 EKG Data EKG 1: EKG interpretation date: 11/17/21 Interpretation: Normal sinus rhythm, 73 bpm, no ST segment elevation or depression seen. Discharge Plan Discharge Patient Disposition: Home Clinical Impression: Non-cardiac chest pain Condition: Stable Prescriptions: New Vistaril 50 mg capsule 50 mg PO BID PRN (Reason: acute anxiety) Qty: 20 0RF No Action Vitamin B-12 50 mcg Tablet 50 mcg PO DAILY 0RF Discharge Orders: Discharge ED (Routine); Ordered 11/17/21 Ordered By: Amilcar Daly Referrals: Emilie Galvez FNP [Primary Care Provider] - Discharge Diet: Regular Discharge Activity: Increase activity as tolerated Patient Instructions: Noncardiac Chest Pain (ED), Anxiety (ED) Activity Restrictions/Additional Instructions: Follow-up with medical provider as directed in the next 5 to 7 days for reevaluation. Take medications as prescribed. Return to the ER or your medical provider if condition worsens. Please read and understand discharge instructions. Thank you for choosing [facility] for your healthcare needs today. Please realize this is an emergency room and that we are providing you with a medical screening exam and this may not be complete and all inclusive of all the testing and or work up that you may need to determine your ailment or severity of your illness. It is very important that you follow up as instructed or that you return to the Emergency Department should you have concerns or if your condition changes or worsens in any way. 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
[2021-11-17 07:54] VITALS: PULSE 83; RESP 17; TEMP 36.5; O2SAT 99
[2021-11-17 08:03] LABS: Basophils # 0.1 10^3/uL (0.0-0.1); Basophils % 0.6 %; Eosinophils # 0.1 10^3/uL (0.0-0.8); Eosinophils % 0.7 %; Hematocrit 43.2 % (42.0-52.0); Hemoglobin 14.9 g/dL (11.7-16.6); Lymphocytes # 2.3 10^3/uL (0.8-4.8); Lymphocytes % 28.2 %; Mean Corpuscular HGB Conc 34.5 g/dL (30.0-36.0); Mean Corpuscular Volume 95.8 fl (80-94); Mean Platelet Volume 9.5 fL (7.4-10.4); Monocytes # 0.7 10^3/uL (0.2-0.9); Monocytes % 8.6 %; Neutrophils # 5.04 10^3/uL (1.8-7.7); Neutrophils % 60.9 %; Nucleated Red Blood Cells % 0 %; Platelet Count 330 10^3/cmm (130-400); Red Blood Count 4.51 10^6/uL (4.1-5.3); Red Cell Distribution Width 12.9 % (12.1-15.1); White Blood Count 8.3 10^3/uL (4.0-10.0)
[2021-11-17 08:25] LABS: Alanine Aminotransferase 17 U/L (0-41); Albumin Level 4.7 g/dL (3.5-5.2); Alkaline Phosphatase 69 IU/L (40-130); Aspartate Amino Transferase 18 U/L (0-40); Blood Urea Nitrogen 9 mg/dL (6-20); Calcium 9.4 mg/dL (8.5-10.5); Carbon Dioxide 25 mmol/L (22-29); Chloride 100 mmol/L (98-107); Globulin 2.4 g/dL (1.3-4.6); Glomerular Filtration Rate 110.7 mL/min (90-130); Glucose 97 mg/dL (65-115); Lipase 21 U/L (13-60); Osmolality Calculated 283 mOsm/kg (285-295); Sodium 137 mmol/L (136-145); Total Bilirubin 0.8 mg/dL (0.15-1.2); Total Protein 7.1 g/dL (6.6-8.7)
[2021-11-17 08:35] LABS: Troponin(5th) Baseline 6 ng/L (0-15)
[2021-11-17 09:51] VITALS: BP 144/73; PULSE 78; RESP 16; O2SAT 98
== END 2021-11-17 09:54 | disposition home or self-care (01) ==
PROVIDERS: Emergency Provider Physician Assistant; PCP Nurse Practitioner Family
DX: R07.89 Other chest pain (principal)
CPT/HCPCS: 71045; 80053; 83690; 84484; 85025; 93005; 99283

== ENCOUNTER 2021-12-02 08:53 | Emergency (ER) | payer SELFPAY ==
--- NOTE | 2021-12-02 09:08 | W.ED.GENADLT ---
HPI - General Adult General: Chief complaint: General Medical Stated complaint: Anxiety attack, high bp, kneck pains Time Seen by Provider: 12/02/21 09:04 Source: patient Mode of arrival: ambulatory Limitations: no limitations History of Present Illness: 36-year-old male presents emergency room with complaints of panic attacks. He is also has some right-sided shoulder pain. In his neck this is been going on for several weeks. Patient admits to heavy drinking is been drinking a dozen or more beers per day regularly for the last several weeks he quit yesterday. He has been self-medicating for anxiety by his own admission. Some life and relationship stressors have been exacerbated. He has had similar episodes like this in the past multiple times. He denies any fever sweats chills hematochezia melena hematemesis cough cramps dysuria urgency or frequency. Onset (ago): hour(s) Location: back and right (Shoulder) Radiation: non-radiation Severity: moderate Quality: aching Pain Consistency: intermittent Relieving factors: none Associated symptoms: Deny chest pain, confusion, cough, diaphoresis, decreased appetite, dyspnea, fevers/chills, headache(s), malaise, nausea, rash, palpitations, seizures, short of breath, syncope, vomiting or weakness Treatments prior to arrival: none Review of Systems Const: Denies: fever(s), chills, body aches, malaise or diaphoresis ENMT: Denies: throat pain, ear or mastoid pain, nasal discharge or nasal congestion Card: Denies: chest pain, palpitations or syncope Resp: Denies: dyspnea, productive cough or non-productive cough GI: Denies: abdominal pain, nausea or vomiting : Denies: flank pain, difficulty urinating, dysuria, urinary frequency or urinary urgency Musc: Reports: back pain (Right posterior shoulder pain) Skin/Breast: Denies: rash Neuro: Denies: headache(s) or confusion PFSH ED PFSH: Medical History Anxiety Gout Surgical History No pertinent past surgical history Social History Smoking and tobacco status: never smoked Alcohol intake: current Course Vital Signs: Vital signs: Vital Signs Temperature 98.2 F 12/02/21 10:16 Pulse Rate 62 12/02/21 11:02 Respiratory Rate 16 12/02/21 11:02 Blood Pressure 153/106 12/02/21 11:02 Pulse Oximetry 99 12/02/21 11:[address] [facility] - General Adult Medical Decision Making Labs And EKG reviewed. Discussed with the patient. Recommend he start omeprazole 20 mg p.o. daily. Given hydroxyzine to use as needed for anxiety recommend abstinence from alcohol follow-up as needed. Medical Records I reviewed the patient's medical records. Lab Data I reviewed the patient's lab results. : 12/02/21 09:35 12/02/21 09:35 Laboratory Results WBC 8.6 10^3/uL (4.0-10.0) 12/02/21 09:35 RBC 4.79 10^6/uL (4.1-5.3) 12/02/21 09:35 Hgb 15.9 g/dL (11.7-16.6) 12/02/21 09:35 Hct 46.2 % (42.0-52.0) 12/02/21 09:35 MCV 96.5 fl (80-94) H 12/02/21 09:35 MCH 33.2 pg (28.0-34.0) 12/02/21 09:35 MCHC 34.4 g/dL (30.0-36.0) 12/02/21 09:35 RDW 13.1 % (12.1-15.1) 12/02/21 09:35 Plt Count 291 10^3/cmm (130-400) 12/02/21 09:35 MPV 9.5 fL (7.4-10.4) 12/02/21 09:35 Neut % (Auto) 65.6 % 12/02/21 09:35 Lymph % (Auto) 22.1 % 12/02/21 09:35 [place] % (Auto) 8.7 % 12/02/21 09:35 Eos % (Auto) 1.2 % 12/02/21 09:35 Baso % (Auto) 0.5 % 12/02/21 09:35 Neut # (Auto) 5.67 10^3/uL (1.8-7.7) 12/02/21 09:35 Lymph # (Auto) 1.9 10^3/uL (0.8-4.8) 12/02/21 09:35 [place] # (Auto) 0.8 10^3/uL (0.2-0.9) 12/02/21 09:35 Eos # (Auto) 0.1 10^3/uL (0.0-0.8) 12/02/21 09:35 Baso # (Auto) 0.0 10^3/uL (0.0-0.1) 12/02/21 09:35 Nucleated RBC % (auto) 0 % 12/02/21 09:35 Nucleated RBCs # 0.0 /100WBC 12/02/21 09:35 Sodium 135 mmol/L (136-145) L 12/02/21 09:35 Potassium 4.0 mmol/L (3.5-5.1) 12/02/21 09:35 Chloride 98 mmol/L (98-107) 12/02/21 09:35 Carbon Dioxide 23 mmol/L (22-29) 12/02/21 09:35 Anion Gap 18.0 (5-19) 12/02/21 09:35 BUN 9 mg/dL (6-20) 12/02/21 09:35 Creatinine 0.8 mg/dL (0.7-1.2) 12/02/21 09:35 GFR Calculation 110.7 mL/min (90-130) 12/02/21 09:35 Glucose 106 mg/dL (65-115) 12/02/21 09:35 Calculated Osmolality 279 mOsm/kg (285-295) L 12/02/21 09:35 Calcium 9.6 mg/dL (8.5-10.5) 12/02/21 09:35 Total Bilirubin 1.2 mg/dL (0.15-1.2) 12/02/21 09:35 AST 23 U/L (0-40) 12/02/21 09:35 ALT 23 U/L (0-41) 12/02/21 09:35 Alkaline Phosphatase 84 IU/L (40-130) 12/02/21 09:35 Total Protein 8.1 g/dL (6.6-8.7) 12/02/21 09:35 Albumin 4.5 g/dL (3.5-5.2) 12/02/21 09:35 Globulin 3.6 g/dL (1.3-4.6) 12/02/21 09:35 Urine Color Yellow (Yellow) 12/02/21 09:45 Urine Appearance Clear (CLEAR) 12/02/21 09:45 Urine pH 6.5 (5-7) 12/02/21 09:45 Ur Specific [place] 1.010 (1.005-1.030) 12/02/21 09:45 Urine Protein Neg (Negative) 12/02/21 09:45 Urine Glucose (UA) Norm (Normal) 12/02/21 09:45 Urine Ketones Negative (Negative) 12/02/21 09:45 Urine Blood Neg (Negative) 12/02/21 09:45 Urine Nitrate Negative (Negative) 12/02/21 09:45 Urine Bilirubin Neg (Negative) 12/02/21 09:45 Urine Urobilinogen Norm mg/dL (Negative) 12/02/21 09:45 Ur Leukocyte Esterase Negative (Negative) 12/02/21 09:45 Discharge Plan Discharge Patient Disposition: Home Clinical Impression: Anxiety, ETOH abuse Condition: Stable Prescriptions: No Action hydroxyzine pamoate [Vistaril] 50 mg capsule 50 mg PO BID PRN (Reason: acute anxiety) Qty: 20 0RF Discharge Orders: Discharge ED (Routine); Ordered 12/02/21 Ordered By: Pradeep Montalvo Referrals: Emilie Galvez FNP [Primary Care Provider] - Discharge Diet: Usual diet Discharge Activity: Resume usual activity Activity Restrictions/Additional Instructions: Stain from alcohol. Follow-up with [facility] to establish for assistance with treatment for anxiety issues. Coding Level of Care Code ED Physician Scribe for Mack Leung
[2021-12-02 09:13] VITALS: BP 164/109; PULSE 95; RESP 18; TEMP 37.1; O2SAT 98; BMI 33.5
[2021-12-02 09:16] VITALS: BP 157/100; PULSE 86; RESP 20; O2SAT 99
--- NOTE | 2021-12-02 09:29 | ECG_ITS ---
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 Measurements Intervals [place] Rate: 59 P: 62 UT: 165 QRS: 32 QRSD: 101 T: 22 QT: 373 QTc: 372 Interpretive Statements SINUS BRADYCARDIA WITH SINUS ARRHYTHMIA MINIMAL VOLTAGE CRITERIA FOR LVH, CONSIDER NORMAL VARIANT [MEETS CRITERIA IN ONE OF: R(aVL), S(V1), R(V5), R(V5/V6)+S(V1)] Compared to ECG 11/17/2021 07:42:41 Sinus rhythm no longer present Electronically Signed On 12-02-2021 20:19:03 CDT by Mihir Uriostegui M.D. [email or web address]
[2021-12-02 09:41] LABS: Basophils % 0.5 %; Eosinophils # 0.1 10^3/uL (0.0-0.8); Eosinophils % 1.2 %; Hematocrit 46.2 % (42.0-52.0); Hemoglobin 15.9 g/dL (11.7-16.6); Lymphocytes # 1.9 10^3/uL (0.8-4.8); Lymphocytes % 22.1 %; Mean Corpuscular HGB Conc 34.4 g/dL (30.0-36.0); Mean Corpuscular Hemoglobin 33.2 pg (28.0-34.0); Mean Corpuscular Volume 96.5 fl (80-94); Mean Platelet Volume 9.5 fL (7.4-10.4); Monocytes # 0.8 10^3/uL (0.2-0.9); Monocytes % 8.7 %; Neutrophils # 5.67 10^3/uL (1.8-7.7); Neutrophils % 65.6 %; Nucleated Red Blood Cells % 0 %; Platelet Count 291 10^3/cmm (130-400); Red Blood Count 4.79 10^6/uL (4.1-5.3); Red Cell Distribution Width 13.1 % (12.1-15.1); White Blood Count 8.6 10^3/uL (4.0-10.0)
[2021-12-02] MEDS: hyDROXYzine 25 mg Capsule PO (09:43)
[2021-12-02 09:52] LABS: Add Urine Microscopic? NO; Charge for UA Resulting for Rev
[2021-12-02 09:58] LABS: Alanine Aminotransferase 23 U/L (0-41); Albumin Level 4.5 g/dL (3.5-5.2); Alkaline Phosphatase 84 IU/L (40-130); Aspartate Amino Transferase 23 U/L (0-40); Blood Urea Nitrogen 9 mg/dL (6-20); Calcium 9.6 mg/dL (8.5-10.5); Carbon Dioxide 23 mmol/L (22-29); Chloride 98 mmol/L (98-107); Globulin 3.6 g/dL (1.3-4.6); Glomerular Filtration Rate 110.7 mL/min (90-130); Glucose 106 mg/dL (65-115); Osmolality Calculated 279 mOsm/kg (285-295); Sodium 135 mmol/L (136-145); Total Bilirubin 1.2 mg/dL (0.15-1.2); Total Protein 8.1 g/dL (6.6-8.7)
[2021-12-02 10:03] LABS: Bilirubin Urine Neg (Negative); Blood Urine Neg (Negative); Glucose Urine UA Norm (Normal); Ketones Urine Negative (Negative); Leukocyte Esterase Urine Negative (Negative); Nitrate Urine Negative (Negative); Protein Urine Neg (Negative); Urine Appearance Clear (CLEAR); Urine Color Yellow (Yellow); Urobilinogen Urine Norm (Negative); pH Urine 6.5 (5-7)
[2021-12-02 10:16] VITALS: BP 144/96; PULSE 68; RESP 16; TEMP 36.8; O2SAT 99
[2021-12-02 11:02] VITALS: BP 153/106; PULSE 62; RESP 16; O2SAT 99
== END 2021-12-02 11:04 | disposition home or self-care (01) ==
PROVIDERS: Emergency Provider Family Medicine; PCP Nurse Practitioner Family
DX: F41.9 Anxiety disorder, unspecified (principal); F10.10 Alcohol abuse, uncomplicated; Y90.9 Presence of alcohol in blood, level not specified
CPT/HCPCS: 80053; 81003; 85025; 93005; 99283

== ENCOUNTER 2022-02-23 07:46 | Emergency (ER) | payer SELFPAY ==
--- NOTE | 2022-02-23 07:48 | W.ED.EAR ---
Documented by User: CHARITO Leslie 02/23/22 08:12 HPI - Ear Problem General: Chief complaint: Ear Stated complaint: Sharp pain in left ear Time Seen by Provider: 02/23/22 07:47 Source: patient Mode of arrival: ambulatory Limitations: no limitations History of Present Illness: Patient is a 36-year-old male who presents to ED today with a complaint of left ear pain and dental pain. He states symptoms been present over the past 2 to 3 days. He states he contacted his dentist to see if they would call him in some antibiotics but was told they would like to see him first. He is not having any drainage from the ear. No hearing loss or tinnitus. He has not noticed any facial or neck swelling. Patient is able to eat/drink/swallow normally. MD Complaint: ear pain and other (dental pain) Location: left ear Duration: constant Severity: moderate Relieving factors: nothing Exacerbating factors: chewing Discharge from ear: no Associated symptoms: Reports ear or mastoid pain and other (dental pain); Denies fever(s), headache(s), neck pain or tinnitus Treatment prior to arrival: none Review of Systems Const: Denies: fever(s), chills, body aches, fatigue or malaise Eyes: Denies: change in vision, blurry vision or photophobia ENMT: Reports: dental pain and ear or mastoid pain; Denies: throat pain, odynophagia, hoarseness, mouth pain, swelling of lips/tongue, oral sores, bleeding gums, ear discharge, change in hearing, tinnitus, disequilibrium, nasal discharge, nasal congestion, post nasal drip or sinus pain Card: Denies: chest pain Resp: Denies: dyspnea GI: Denies: abdominal pain, nausea or vomiting Musc: Denies: neck pain Skin/Breast: Denies: rash Neuro: Denies: headache(s) or dizziness PFS ED PFSH: Medical History Anxiety Gout Surgical History No pertinent past surgical history Social History Smoking and tobacco status: never smoked Alcohol intake: current Physical Exam Const: COMMON NORMALS: no acute distress, patient oriented x3, no limitations, alert and well nourished GENERAL APPEARANCE: cooperative ORIENTATION/CONSCIOUSNESS: Yes awake, Yes oriented to person, Yes oriented to place and Yes oriented to time HENMT: COMMON NORMALS: normocephalic, atraumatic, hearing grossly normal bilaterally, external ears normal, EAC's normal, TM's normal bilaterally and Normal external nose present HEAD & SCALP: normal to inspection, normocephalic and atraumatic FACE & SINUS: normal facial exam NOSE: Normal external nose present EXTERNAL EAR: Yes external ears normal, Yes mastoids normal and Yes no periauricular adenopathy EXTERNAL AUDITORY CANAL: EAC's normal TYMPANIC MEMBRANE: TM's normal bilaterally MOUTH: Normal oral and palatal mucosa present, lip normal and tongue normal TEETH & GINGIVA: Yes poor dentition and Yes other (severe widespread dental decay) THROAT: posterior oropharynx normal, tonsils normal and uvula midline Eye: GENERAL EYE: appearance normal, both eyes and all related structures Neck/C-Spine: COMMON NORMALS: full ROM, no lymphadenopathy and no meningeal signs Resp: COMMON NORMALS: normal respiratory effort Cardio: COMMON NORMALS: regular rate and regular rhythm RATE: regular rate RHYTHM: regular rhythm Neuro: JESUS COMA SCALE: document GCS findings [place] coma scale eye opening: Spontaneous [place] coma scale verbal response: Orientated Jesus coma scale motor response: Obey commands [place] coma scale total score: 15 COMMON NORMALS: patient oriented x3 and CN's II-XII intact bilaterally SENSORIUM/ORIENTATION: Yes alert, Yes oriented to person, Yes oriented to place and Yes oriented to time MENINGEAL SIGNS: Yes no meningeal signs Skin: COMMON NORMALS: no rashes or lesions noted GENERAL SKIN EXAM: no rashes or lesions noted Course Vital Signs: Vital signs: Vital Signs Temperature 98.4 F 02/23/22 07:52 Pulse Rate 84 02/23/22 07:52 Respiratory Rate 14 02/23/22 07:52 Blood Pressure 143/94 02/23/22 07:52 Pulse Oximetry 98 02/23/22 07:52 Oxygen Delivery Me thod 02/23/22 07:52 MDM - Ear Medical Decision Making Pts ear looks normal. He does have widespread dental disease with a severely decayed molar-most likely his otalgia is referred from his dental pain/infection. Recommend he make an appointment with his dentist as soon as possible. Return to ED precautions given. Discharge Plan Discharge Patient Disposition: Home Clinical Impression: Dental caries, Pain, dental, Referred ear pain Condition: Stable Prescriptions: New clindamycin HCl 300 mg capsule 300 mg PO Q6H 7 Days Qty: 28 0RF No Action hydroxyzine pamoate [Vistaril] 50 mg capsule 50 mg PO BID PRN (Reason: acute anxiety) Qty: 20 0RF Discharge Orders: Discharge ED (Routine); Ordered 02/23/22 Ordered By: Carolyn Oneil Referrals: Emilie Galvez FNP [Primary Care Provider] - Coding Level of Care Code ED Pharmacovigilance Specialist for Chg Fwd Exam Comprehensive Documented by User: Pradeep Montalvo DO 02/23/22 08:22 HPI - Ear Problem General: Chief complaint: Ear Stated complaint: Sharp pain in left ear Time Seen by Provider: 02/23/22 07:47 PFSH ED PFSH: Medical History Anxiety Gout Surgical History No pertinent past surgical history Social History Smoking and tobacco status: never smoked Alcohol intake: current Physical Exam Neuro: JESUS COMA SCALE: document GCS findings Jesus coma scale total score: 15 Course Vital Signs: Vital signs: Vital Signs Temperature 98.4 F 02/23/22 07:52 Pulse Rate 84 02/23/22 07:52 Respiratory Rate 14 02/23/22 07:52 Blood Pressure 143/94 02/23/22 07:52 Pulse Oximetry 98 02/23/22 07:52 Oxygen Delivery Me thod 02/23/22 07:52 MDM - Ear Medical Decision Making Pts ear looks normal. He does have widespread dental disease with a severely decayed molar-most likely his otalgia is referred from his dental pain/infection. Recommend he make an appointment with his dentist as soon as possible. Return to ED precautions given. Chart reviewed and patient discussed with midlevel. Agree with assessment and plan. Discharge Plan Discharge Patient Disposition: Home Clinical Impression: Dental caries, Pain, dental, Referred ear pain Condition: Stable Prescriptions: New clindamycin HCl 300 mg capsule 300 mg PO Q6H 7 Days Qty: 28 0RF No Action hydroxyzine pamoate [Vistaril] 50 mg capsule 50 mg PO BID PRN (Reason: acute anxiety) Qty: 20 0RF Discharge Orders: Discharge ED (Routine); Ordered 02/23/22 Ordered By: Carolyn Oneil Referrals: Emilie Galvez FNP [Primary Care Provider] - Coding Level of Care Code ED Pharmacovigilance Specialist for Chg Fwd Exam Comprehensive
[2022-02-23 07:52] VITALS: BP 143/94; PULSE 84; RESP 14; TEMP 36.9; O2SAT 98; BMI 31.2
== END 2022-02-23 08:15 | disposition home or self-care (01) ==
PROVIDERS: Emergency Provider Physician Assistant; PCP Nurse Practitioner Family
DX: H92.02 Otalgia, left ear (principal); K02.9 Dental caries, unspecified
CPT/HCPCS: 99283

== ENCOUNTER 2022-02-26 10:50 | Emergency (ER) | payer SELFPAY ==
[2022-02-26 10:56] VITALS: BP 151/116; PULSE 80; RESP 16; O2SAT 98; BMI 30.9
--- NOTE | 2022-02-26 11:08 | ED_ITS ---
HPI - Dental/Oral General: Chief complaint: Dental/Oral Stated complaint: Tooth Pain Time Seen by Provider: 02/26/22 11:02 Source: patient Mode of arrival: ambulatory Limitations: no limitations History of Present Illness: 36-year-old male presents to the ER today for left lower molar pain for 2 weeks. Patient reports he was seen late last week and started on clindamycin. Patient reports he is taking clindamycin twice a day. He reports the pain is not getting better and he is unable to sleep at night. Patient reports he is taking Tylenol but it is giving him upset stomach. He reports he is unable to eat anything on that side due to pain. Patient has an appointment with a dentist tomorrow. Patient denies any fever or chills. Denies any facial swelling. Teeth map: 1. gingival swelling, tooth with cavities and appears fractured Review of Systems General: Reports: 10 or more systems reviewed and unremarkable except in HPI and below PFSH ED PFSH: Medical History Anxiety Gout Surgical History No pertinent past surgical history Social History Smoking and tobacco status: never smoked Alcohol intake: current Physical Exam Const: COMMON NORMALS: no acute distress, average body habitus, patient oriented x3, no limitations, healthy appearing, alert and well nourished HENMT: TEETH & GINGIVA: Yes caries, Yes gingiva abnormal, Yes poor dentition and Yes teeth discoloration TEETH & GINGIVA IMAGES: 1. tooth with probable abscess Eye: COMMON NORMALS: conjunctivae normal CONJUNCTIVA: Yes conjunctivae normal Resp: COMMON NORMALS: normal respiratory effort and No retractions EFFORT & INSPECTION: Yes able to speak in complete sentences Cardio: COMMON NORMALS: regular rate and regular rhythm RATE: regular rate RHYTHM: regular rhythm Extremity: COMMON NORMALS: normal to inspection and full ROM Neuro: COMMON NORMALS: patient oriented x3 SENSORIUM/ORIENTATION: Yes alert Psych: COMMON NORMALS: mental status grossly normal, Normal thought process present and cooperative THOUGHT PROCESS: Normal thought process present Skin: COMMON NORMALS: no rashes or lesions noted and no wounds GENERAL SKIN EXAM: no rashes or lesions noted Course ED course: 36-year-old male presents to the ER today for left lower molar pain x2 weeks. Patient was seen last week and started on clindamycin however has not been taking it appropriately. Patient reports pain is worsening. He reports he is taking Tylenol at home however the Tylenol is upsetting his stomach and he is not able to control the pain. Patient reports ibuprofen makes him sweat. Patient denies any swelling of the face. Patient has an appointment with a dentist tomorrow. Vital Signs: Vital signs: Vital Signs Pulse Rate 80 02/26/22 10:56 Respiratory Rate 16 02/26/22 10:56 Blood Pressure 151/116 02/26/22 10:56 Pulse Oximetry 98 02/26/22 10:56 Oxygen Delivery Me thod 02/26/22 10:56 MDM - Dental/Oral Medical Decision Making 36-year-old male presents to the ER today for left lower molar pain x2 weeks. Patient was seen last week and started on clindamycin however has not been taking it appropriately. Patient reports pain is worsening. He reports he is taking Tylenol at home however the Tylenol is upsetting his stomach and he is not able to control the pain. Patient reports ibuprofen makes him sweat. Patient denies any swelling of the face. Patient has an appointment with a dentist tomorrow. Patient has very poor dentition throughout. There is noted t o be multiple cavities and a probable abscess left back molar on the left lower side. Discussed with patient that clindamycin should be taken 4 times daily as prescribed. Patient is taking it twice a day. Patient is on appropriate dose of 300 mg 4 times daily but has not been taking it 4 times daily. Recommended he take it as prescribed. We will do topical viscous lidocaine for symptomatic relief. We will also do ketorolac. Hold all ibuprofen at home. Okay to take Tylenol 1000 mg 3 times daily but I would recommend taking with food. Patient should follow-up with dentist tomorrow to discuss treatment plan. Return to the ER with new or worsening symptoms. Patient verbalized understanding and was in agreement with the treatment plan. Critical Care Time Critical Care Time: Critical Care Time: No Discharge Plan Discharge Patient Disposition: Home Clinical Impression: Dental abscess Condition: Stable Prescriptions: New ketorolac 10 mg tablet 10 mg PO Q8H PRN (Reason: pain) 3 Days Qty: 9 0RF Lidocaine Viscous 2 % solution 1 applic mucous membrane Q3H PRN (Reason: pain) Qty: 100 0RF Rx Instructions: apply to cotton ball and then apply cotton ball to affected tooth No Action hydroxyzine pamoate [Vistaril] 50 mg capsule 50 mg PO BID PRN (Reason: acute anxiety) Qty: 20 0RF clindamycin HCl 300 mg capsule 300 mg PO Q6H 7 Days Qty: 28 0RF Discharge Orders: Discharge ED (Routine); Ordered 02/26/22 Ordered By: Vanessa Cash Referrals: Emilie Galvez FNP [Primary Care Provider] - Discharge Diet: Usual diet Discharge Activity: Resume usual activity Patient Instructions: Opioid Safety Activity Restrictions/Additional Instructions: According to prescription list in chart, you should be taking clindamycin 300 mg 4 times daily. Take it as prescribed and make sure you are taking it 4 times daily. Use viscous lidocaine as prescribed. Take ketorolac for pain. Do not take ibuprofen at home until you are finished with ketorolac. Okay to still ta ke Tylenol. If Tylenol is bothering your stomach, take it with food or take an omeprazole. Apply ice to reduce swelling. Follow-up with dentist at tomorrow's appointment. Return to the ER with new or worsening symptoms. Coding Level of Care Code ED Lodging House Keeper for Mack Leung
== END 2022-02-26 11:40 | disposition home or self-care (01) ==
PROVIDERS: Emergency Provider Physician Assistant; PCP Nurse Practitioner Family
DX: K04.7 Periapical abscess without sinus (principal)
CPT/HCPCS: 99284

== ENCOUNTER 2022-06-14 08:38 | Emergency (ER) | payer SELFPAY ==
[2022-06-14 08:41] VITALS: BP 163/98; PULSE 96; RESP 18; TEMP 36.6; O2SAT 98; BMI 31.7
[2022-06-14] MEDS: hyDROXYzine 25 mg Capsule PO (09:08)
--- NOTE | 2022-06-14 10:22 | ED_ITS ---
HPI - Anxiety General: Chief Complaint: Anxiety Stated Complaint: anxiety Time Seen by Provider: 06/14/22 08:43 History of Present Illness: 36-year-old male presents to the emergency room with complaints of anxiety generally not feeling well. He states he has been experiencing more more anxiety had previously been on citalopram and that was stopped due to not working but not for side effects. Not taking any other medications at this time for anxiety. He previously has been given hydroxyzine. MD complaint: anxiety Onset (ago): minute(s) Symptoms: dyspnea Severity: mild Place: home History of similar episodes: Yes Provoking factors: emotional stress Relieving factors: nothing Exacerbating factors: nothing Associated symptoms: Deny anorexia, chest pain, chills, confusion, diaphoresis, fever(s), headache(s), malaise, nausea, palpitations, short of breath, syncope, vomiting or weakness Review of Systems Const: Denies: fever(s), chills, malaise or diaphoresis ENMT: Denies: throat pain, ear or mastoid pain, nasal discharge or nasal congestion Card: Denies: chest pain, palpitations or syncope Resp: Denies: dyspnea, productive cough or non-productive cough GI: Denies: abdominal pain, nausea or vomiting : Denies: flank pain, difficulty urinating, dysuria, urinary frequency or urinary urgency Musc: Denies: neck pain or back pain Skin/Breast: Denies: rash or pruritus Neuro: Denies: headache(s) or confusion PFSH ED PFSH: Medical History Anxiety Gout Surgical History No pertinent past surgical history Social History Smoking and tobacco status: never smoked Alcohol intake: current Physical Exam Const: COMMON NORMALS: no acute distress GENERAL APPEARANCE: cooperative and comfortable ORIENTATION/CONSCIOUSNESS: Yes awake, Yes oriented to person, Yes oriented to place and Yes oriented to time HENMT: COMMON NORMALS: normocephalic, atraumatic and hearing grossly normal bilaterally HEAD & SCALP: normocephalic and atraumatic Resp: COMMON NORMALS: normal respiratory effort, No retractions, No use of accessory muscles and clear to auscultation bilaterally AUSCULTATION: clear to auscultation bilaterally Cardio: COMMON NORMALS: regular rate, regular rhythm and No murmurs present (Cardio) RATE: regular rate RHYTHM: regular rhythm Extremity: COMMON NORMALS: normal to inspection, capillary refill normal, no clubbing, cyanosis or edema, no calf tenderness and no pedal edema Neuro: SENSORIUM/ORIENTATION: Yes oriented to person, Yes oriented to place and Yes oriented to time Skin: COMMON NORMALS: no rashes or lesions noted GENERAL SKIN EXAM: no rashes or lesions noted Course Vital Signs: Vital signs: Vital Signs Temperature 97.9 F 06/14/22 08:41 Pulse Rate 96 06/14/22 08:41 Respiratory Rate 18 06/14/22 08:41 Blood Pressure 163/98 06/14/22 08:41 Pulse Oximetry 98 06/14/22 08:41 Oxygen Delivery Me thod 06/14/22 08:41 MDM - Anxiety Medical Decision Making Patient given hydroxyzine. He is not significantly anxious or any psychological distress at this time. We will discharge him home with hydroxyzine him follow- up with his primary care doctor to initiate new long-term medications. Medical Records I reviewed the patient's medical records. Lab Data I reviewed the patient's lab results. Discharge Plan Discharge Patient Disposition: Home Clinical Impression: Anxiety Condition: Stable Prescriptions: New hydroxyzine HCl 25 mg tablet 25 mg PO Q6H PRN (Reason: anxiety) Qty: 7 0RF No Action hydroxyzine pamoate [Vistaril] 50 mg capsule 50 mg PO BID PRN (Reason: acute anxiety) Qty: 20 0RF Lidocaine Viscous 2 % solution 1 applic mucous membrane Q3H PRN (Reason: pain) Qty: 100 0RF Rx Instructions: apply to cotton ball and then apply cotton ball to affected tooth Discharge Orders: Discharge ED (Routine); Ordered 06/14/22 Ordered By: Pradeep Montalvo Referrals: Emilie Galvez FNP [Primary Care Provider] - Patient Instructions: Opioid Safety, Pain Management Activity Restrictions/Additional Instructions: Follow-up with your primary care doctor soon as you are able. Coding Level of Care Code ED Senior Underwriter for Mack Leung
== END 2022-06-14 09:15 | disposition home or self-care (01) ==
PROVIDERS: Emergency Provider Family Medicine; PCP Nurse Practitioner Family
DX: F41.9 Anxiety disorder, unspecified (principal)
CPT/HCPCS: 99283

== ENCOUNTER 2022-09-01 15:47 | Emergency (ER) | payer SELFPAY ==
[2022-09-01 16:21] VITALS: BP 157/98; PULSE 76; RESP 18; TEMP 36.6; O2SAT 97; BMI 33.5
[2022-09-01 20:33] VITALS: BP 167/117; PULSE 89; RESP 16; O2SAT 100
--- NOTE | 2022-09-01 20:45 | ECG_ITS ---
[facility] Test Date: 2022-09-01 Pat Name: Anthony Olson Department: Room: Gender: Male Protection Officer: : 1985 Requested By: Amilcar Daly Order Number: [id number] Mosher MD: Shreyas Jarquin M.D. Measurements Intervals [place] Rate: 76 P: 62 [place]: 170 QRS: 39 QRSD: 102 T: 7 QT: 364 QTc: 411 Interpretive Statements SINUS RHYTHM Compared to ECG 12/02/2021 10:11:39 Sinus bradycardia no longer present Sinus arrhythmia no longer present Electronically Signed On 09-01-2022 23:24:43 [employer] by Shreyas Jarquin M.D. [id number]
--- NOTE | 2022-09-01 20:51 | W.ED.ANXIETY ---
HPI - Anxiety General: Chief Complaint: Anxiety Stated Complaint: anxiety Time Seen by Provider: 09/01/22 20:32 History of Present Illness: Patient is a 36-year-old male who comes to the ED with anxiety. He has a history of anxiety and takes Vistaril as needed. Says for the past 30 days as anxiety has been worse. He states when he lays down at night he cannot shut his mind off. He is having trouble getting some good sleep. Denies any SI or HI. Patient is on metoprolol for his blood pressure but has not taken it for the past couple days because he forgot. Associated symptoms: Deny chest pain, chills, fever(s), headache(s), nausea, palpitations or vomiting Review of Systems Const: Denies: fever(s), chills or fatigue Eyes: Denies: change in vision or eye discomfort ENMT: Denies: throat pain, odynophagia, nasal discharge or nasal congestion Card: Denies: chest pain, palpitations, edema, swelling of feet/ankles, dyspnea on exertion or orthopnea Resp: Denies: dyspnea, productive cough or non-productive cough GI: Denies: abdominal pain, nausea, vomiting, diarrhea, constipation or hematochezia : Denies: flank pain, difficulty urinating, dysuria or hematuria Musc: Denies: neck pain, back pain or extremity swelling Skin/Breast: Denies: rash or new lesions Neuro: Denies: headache(s), numbness in extremities or weakness in extremities Psych: Reports: anxiety; Denies: suicidal ideation or homicidal ideation [facility] ED PFSH: Medical History Anxiety Gout Surgical History No pertinent past surgical history Social History Smoking and tobacco status: never smoked Alcohol intake: current Physical Exam Const: COMMON NORMALS: no acute distress, patient oriented x3 and alert GENERAL APPEARANCE: cooperative HENMT: COMMON NORMALS: normocephalic HEAD & SCALP: normocephalic MOUTH: Normal oral and palatal mucosa present THROAT: posterior oropharynx normal and uvula midline Neck/C-Spine: COMMON NORMALS: supple GENERAL: Yes normal visual inspection Resp: COMMON NORMALS: normal respiratory effort, No retractions, No use of accessory muscles and clear to auscultation bilaterally AUSCULTATION: clear to auscultation bilaterally Cardio: COMMON NORMALS: regular rate, regular rhythm, S1 normal heart sound present, S2 normal heart sound present, No gallops present (Cardio), No clicks present (Cardio), No murmurs present (Cardio) and Peripheral pulses 2+ throughout RATE: regular rate RHYTHM: regular rhythm HEART SOUNDS: S1 normal heart sound present and S2 normal heart sound present PERIPHERAL PULSES: Peripheral pulses 2+ throughout GI: COMMON NORMALS: Normal to inspection, nondistended, normoactive bowel sounds present, Soft to palpation, non-tender and no masses PALPATION: Yes Soft to palpation : COMMON NORMALS: Yes no CVA tenderness BLADDER/KIDNEY EXAM: Yes no CVA tenderness Back/Pelvis: COMMON NORMALS: no CVA tenderness Extremity: COMMON NORMALS: normal to inspection Neuro: COMMON NORMALS: patient oriented x3 SENSORIUM/ORIENTATION: Yes alert GAIT: Yes Normal gait present Skin: GENERAL SKIN EXAM: dry skin Course Vital Signs: Vital signs: Vital Signs Temperature 98 F 09/01/22 16:21 Pulse Rate 73 09/01/22 21:13 Respiratory Rate 16 09/01/22 21:13 Blood Pressure 165/93 09/01/22 21:13 Pulse Oximetry 100 09/01/22 21:13 Oxygen Delivery Me thod 09/01/22 20:33 MDM - Anxiety Medical Decision Making Patient is a 36-year-old male who comes to the ED with anxiety. He has a history of anxiety and takes Vistaril as needed. Says for the past 30 days as anxiety has been worse. He states when he lays down at night he cannot shut his mind off. He is having trouble getting some good sleep. Denies any SI or HI. Patient is on metoprolol for his blood pressure but has not taken it for the past couple days because he forgot. Vitals are stable. Patient appears nontoxic in no acute distress or pain. Rest of exam is benign. EKG shows normal sinus rhythm, [address] segment elevation or depression seen. He was given a dose of Ativan here in the ED and his symptoms improved. He was also given his dose of metoprolol to help with his blood pressure. Patient diagnosed with hypertension and anxiety and was discharged home with a prescription for Vistaril and told to continue taking his previously prescribed metoprolol. Return to ED precautions given. Follow-up with PCP in the next week for reevaluation. Patient understood and agreed with plan. EKG Data EKG 1: EKG interpretation date: 09/01/22 Interpretation: Normal sinus rhythm, 76 bpm, no ST segment elevation or depression seen. Discharge Plan Discharge Patient Disposition: Home Clinical Impression: Anxiety Hypertension Qualifiers: Hypertension type: primary hypertension Qualified Code(s): I10 - Essential (primary) hypertension Condition: Stable Prescriptions: New Vistaril 50 mg capsule 50 mg PO Q8H PRN (Reason: Acute anxiety) Qty: 30 0RF No Action hydroxyzine pamoate [Vistaril] 50 mg capsule 50 mg PO BID PRN (Reason: acute anxiety) Qty: 20 0RF Lidocaine Viscous 2 % solution 1 applic mucous membrane Q3H PRN (Reason: pain) Qty: 100 0RF Rx Instructions: apply to cotton ball and then apply cotton ball to affected tooth hydroxyzine HCl 25 mg tablet 25 mg PO Q6H PRN (Reason: anxiety) Qty: 7 0RF Discharge Orders: Discharge ED (Routine); Ordered 09/01/22 Ordered By: Amilcar Daly Referrals: Emilie Galvez FNP [Primary Care Provider] - Discharge Diet: Regular Discharge Activity: Increase activity as tolerated Patient Instructions: Hypertension (ED), Anxiety (ED) Activity Restrictions/Additional Instructions: Follow-up with medical provider as directed. Take medications as prescribed. Return to the ER or your medical provider if condition worsens. Please read and understand discharge instructions. Thank you for choosing [facility] for your healthcare needs today. Please realize this is an emergency room and that we are providing you with a medical screening exam and this may not be complete and all inclusive of all the testing and or work up that you may need to determine your ailment or severity of your illness. It is very important that you follow up as instructed or that you return to the Emergency Department should you have concerns or if your condition changes or worsens in any way. Coding Level of Care Code ED Director Of Collections And Archives for Mack Leung Exam Comprehensive
[2022-09-01] MEDS: metoprolol tartrate 50 mg Tablet PO (21:02)
[2022-09-01] MEDS: LORazepam 1 mg Tablet PO (21:02)
[2022-09-01] MEDS: metoprolol succinate ER (24 HR) 50 mg Tablet PO (21:12)
[2022-09-01 21:13] VITALS: BP 165/93; PULSE 73; RESP 16; O2SAT 100
== END 2022-09-01 21:29 | disposition home or self-care (01) ==
PROVIDERS: Emergency Provider Physician Assistant; PCP Nurse Practitioner Family
DX: F41.9 Anxiety disorder, unspecified (principal); I10 Essential (primary) hypertension
CPT/HCPCS: 93005; 99283

== ENCOUNTER 2023-01-31 16:04 | Emergency (ER) | payer SELFPAY ==
[2023-01-31 16:07] VITALS: BP 151/90; PULSE 108; RESP 15; TEMP 36.8; O2SAT 98; BMI 34.3
[2023-01-31 16:34] LABS: Basophils % 0.3 %; Eosinophils # 0.1 10^3/uL (0.0-0.8); Eosinophils % 0.4 %; Hemoglobin 13.5 g/dL (11.7-16.6); Lymphocytes # 3.6 10^3/uL (0.8-4.8); Lymphocytes % 26.4 %; Mean Corpuscular HGB Conc 34.6 g/dL (30.0-36.0); Mean Corpuscular Volume 95.4 fl (80-94); Monocytes # 1.1 10^3/uL (0.2-0.9); Monocytes % 8.1 %; Neutrophils # 8.73 10^3/uL (1.8-7.7); Nucleated Red Blood Cells % 0 %; Platelet Count 310 10^3/cmm (130-400); Red Blood Count 4.09 10^6/uL (4.1-5.3); Red Cell Distribution Width 12.6 % (12.1-15.1); White Blood Count 13.7 10^3/uL (4.0-10.0)
[2023-01-31] MEDS: sodium chloride 0.9% 1,000 ML 999 ML IV (16:46)
[2023-01-31 16:47] LABS: Alanine Aminotransferase 45 U/L (0-41); Albumin Level 4.7 g/dL (3.5-5.2); Alkaline Phosphatase 72 U/L (40-130); Anion Gap 21.5 (5-19); Aspartate Amino Transferase 39 U/L (0-40); Blood Urea Nitrogen 8 mg/dL (6-20); Calcium 9.1 mg/dL (8.5-10.5); Carbon Dioxide 22 mmol/L (22-29); Chloride 97 mmol/L (98-107); Glucose 119 mg/dL (65-115); Lipase 24 U/L (13-60); Osmolality Calculated 283 mOsm/kg (285-295); Potassium 3.5 mmol/L (3.5-5.1); Sodium 137 mmol/L (136-145); Total Bilirubin 0.4 mg/dL (0.15-1.2); Total Protein 7.7 g/dL (6.6-8.7)
[2023-01-31] MEDS: metoclopramide 5 mg/mL SDV 2 mL 10 MG IVP (16:47)
[2023-01-31] MEDS: diphenhydrAMINE 50 mg/mL SDV 1mL IVP (16:47)
[2023-01-31 16:50] VITALS: PULSE 102; RESP 18; O2SAT 99
--- NOTE | 2023-01-31 17:01 | CTR_ITS ---
PROCEDURE INFORMATION: Exam: CT Abdomen And Pelvis With Contrast Exam date and time: 01/31/2023 5:32 PM Age: 37 years old Clinical indication: Abdominal pain; Generalized; Prior surgery; Surgery date: 6+ months; Surgery type: Appy; Additional info: Abd pain TECHNIQUE: Imaging protocol: Computed tomography of the abdomen and pelvis with contrast. Sagittal and coronal reformatted images were created and reviewed. Radiation optimization: All CT scans at this facility use at least one of these dose optimization techniques: automated exposure control; mA and/or kV adjustment per patient size (includes targeted exams where dose is matched to clinical indication); or iterative reconstruction. Contrast material: OMNI 350; Contrast volume: 100 ml; Contrast route: INTRAVENOUS (IV); REPORTING DATA: Count of CT and Cardiac NM exams in prior 12 months: This patient has received 0 known CTs and 0 known cardiac nuclear medicine studies in the 12 months prior to the current study. COMPARISON: CT abdomen pelvis w con* [id number] 04/02/2021 11:20 PM RADIATION DOSE METRICS: Total DLP (mGy-cm): 740 FINDINGS: Lungs: Visualized lungs are clear. Pleural spaces: No pleural effusion. Heart: Visualized portions of the heart are unremarkable. Liver: The liver is unremarkable. Gallbladder and bile ducts: The gallbladder is unremarkable. No biliary ductal dilatation. Pancreas: The pancreas is unremarkable. No pancreatic ductal dilatation. Spleen: The spleen is unremarkable. Adrenal glands: The right and left adrenal glands are unremarkable. Kidneys and ureters: The right and left kidneys are unremarkable. The right and left ureters are unremarkable. Stomach and bowel: No acute abnormality in the small bowel. No acute abnormality in the colon. Fatty infiltration of the wall of the cecum and ascending colon. Findings suggest sequela of chronic inflammation. Appendix: Stable changes consistent with a previous appendectomy. Intraperitoneal space: No free intraperitoneal air. No ascites. No loculated fluid collections to suggest an abscess. Vasculature: Hepatic veins, portal veins, splenic vein, and SMV are patent. No evidence for aortic aneurysm or aortic dissection. Lymph nodes: No lymphadenopathy. Urinary bladder: Diffuse, mild wall thickening of the bladder. Reproductive: Unremarkable as visualized. Bones/joints: Multilevel degenerative changes of varying severity in the visualized spine. Bilateral pars defects at L5-S1. Osseous findings are stable. Soft tissues: No acute abnormality in the extra-abdominal soft tissues. CT/CT abdomen pelvis w con* [id number] IMPRESSION: 1. Diffuse, mild wall thickening of the bladder. In the correct clinical setting, this may suggest cystitis. Recommend correlation with laboratory findings. Alternatively, this may be secondary to chronic outlet obstruction. 2. Incidental/nonacute findings are listed in the report.
--- NOTE | 2023-01-31 17:04 | ED_ITS ---
HPI - Abdominal Pain General: Chief Complaint: Abdominal Pain Stated Complaint: vomitting blood Time Seen by Provider: 01/31/23 16:15 Source: patient Mode of arrival: ambulatory Limitations: no limitations History of Present Illness: 37-year-old male states that he has had vomiting over the last 2 days he states today has had some epigastric pain he vomited small amount of blood just wants. He denies any fevers. He denies any worsening improving factors he states the epigastric pain he has currently is a 2 out of 10 denies any radiation of the pain. Associated Symptoms: Reports nausea and vomiting; Denies chills, diarrhea, dysuria and fever(s) Review of Systems Const: Denies: fever(s), chills, body aches or change in appetite Eyes: Denies: blurry vision or eye discomfort ENMT: Denies: throat pain or dental pain Card: Denies: chest pain Resp: Denies: dyspnea GI: Reports: abdominal pain, nausea and vomiting; Denies: diarrhea : Denies: dysuria Musc: Denies: neck pain or back pain Skin/Breast: Denies: rash Neuro: Denies: headache(s) Psych: Denies: depression Bernardo/Lymph: Denies: easy bruising All/Imm: Denies: urticaria PFSH ED PFSH: Medical History Anxiety Gout Surgical History No pertinent past surgical history Social History Smoking and tobacco status: never smoked Alcohol intake: current Substance/Drug Use: never Physical Exam Const: COMMON NORMALS: no acute distress, patient oriented x3 and healthy appearing HENMT: COMMON NORMALS: normocephalic and atraumatic HEAD & SCALP: normoce phalic and atraumatic Eye: COMMON NORMALS: Equal, round and reactive pupils present and EOMs intact bilaterally PUPIL: Yes Equal, round and reactive pupils present Neck/C-Spine: COMMON NORMALS: full ROM and supple Chest: COMMONS NORMALS: normal inspection of the chest and normal palpation of entire chest wall Resp: COMMON NORMALS: normal respiratory effort, No retractions, No use of accessory muscles and clear to auscultation bilaterally AUSCULTATION: clear to auscultation bilaterally Cardio: COMMON NORMALS: regular rate, regular rhythm and No murmurs present (Cardio) RATE: regular rate RHYTHM: regular rhythm GI: COMMON NORMALS: Normal to inspection, nondistended, normoactive bowel sounds present, Soft to palpation and no masses PALPATION: Yes Soft to palpation OTHER: Mild epigastric tenderness Extremity: COMMON NORMALS: normal to inspection and full ROM Neuro: COMMON NORMALS: patient oriented x3, moves all extremities and no focal motor deficits Psych: COMMON NORMALS: mental status grossly normal, Normal thought process present and cooperative THOUGHT PROCESS: Normal thought process present Skin: COMMON NORMALS: no rashes or lesions noted and no wounds GENERAL SKIN EXAM: no rashes or lesions noted Course Vital Signs: Vital signs: Vital Signs Temperature 98.2 F 01/31/23 16:07 Pulse Rate 102 H 01/31/23 16:50 Respiratory Rate 18 01/31/23 16:50 Blood Pressure 151/90 01/31/23 16:07 Pulse Oximetry 99 01/31/23 16:50 Oxygen Delivery Me thod Room Air 01/31/23 16:50 MDM - Abdominal Pain Medical Decision Making Patient presents here with abdominal pain along with vomiting. He states he did vomit a very small like a 1 ounce shot glass of blood. He has no signs of any massive bleeding he feels much improved here his abdominal exam at discharge is benign his CT scan here is normal we will place him on nausea medicine he is to follow-up his PCP and return if worsening. Medical Records I reviewed the patient's medical records. Lab Data I reviewed the patient's lab results. 01/31/23 16:23 01/31/23 16:23 Labs/Radiology: Radiology Impressions Abdomen/Pelvis CT 01/31/23 17:01 IMPRESSION: 1. Diffuse, mild wall thickening of the bladder. In the correct clinical setting, this may suggest cystitis. Recommend correlation with laboratory findings. Alternatively, this may be secondary to chronic outlet obstruction. 2. Incidental/nonacute findings are listed in the report. Laboratory Results WBC 13.7 10^3/uL (4.0-10.0) H 01/31/23 16:23 RBC 4.09 10^6/uL (4.1-5.3) L 01/31/23 16:23 Hgb 13.5 g/dL (11.7-16.6) 01/31/23 16:23 Hct 39.0 % (42.0-52.0) L 01/31/23 16: MCV 95.4 fl (80-94) H 01/31/23 16:23 MCH 33.0 pg (28.0-34.0) 01/31/23 16: MCHC 34.6 g/dL (30.0-36.0) 01/31/23 16: RDW 12.6 % (12.1-15.1) 01/31/23 16:23 Plt Count 310 10^3/cmm (130-400) 01/31/23 16: MPV 9.0 fL (7.4-10.4) 01/31/23 16:23 Neut % (Auto) 64.0 % 01/31/23 16:23 Lymph % (Auto) 26.4 % 01/31/23 16:23 [place] % (Auto) 8.1 % 01/31/23 16:23 Eos % (Auto) 0.4 % 01/31/23 16:23 Baso % (Auto) 0.3 % 01/31/23 16:23 Neut # (Auto) 8.73 10^3/uL (1.8-7.7) H 01/31/23 16:23 Lymph # (Auto) 3.6 10^3/uL (0.8-4.8) 01/31/23 16:23 [place] # (Auto) 1.1 10^3/uL (0.2-0.9) H 01/31/23 16:23 Eos # (Auto) 0.1 10^3/uL (0.0-0.8) 01/31/23 16:23 Baso # (Auto) 0.0 10^3/uL (0.0-0.1) 01/31/23 16: Nucleated RBC % (auto) 0 % 01/31/23: Nucleated RBCs # 0.0 /100WBC 01/31/23 16:23 Sodium 137 mmol/L (136-145) 01/31/23 16:23 Potassium 3.5 mmol/L (3.5-5.1) 01/31/23 16:23 Chloride 97 mmol/L (98-107) L 01/31/23 16:23 Carbon Dioxide 22 mmol/L (22-29) 01/31/23 16:23 Anion Gap 21.5 (5-19) H 01/31/23 16:23 BUN 8 mg/dL (6-20) 01/31/23 16:23 Creatinine 0.9 mg/dL (0.7-1.2) 01/31/23 16:23 GFR Calculation 96.0 mL/min (90-130) 01/31/23 16:23 Glucose 119 mg/dL (65-115) H 01/31/23 16:23 Calculated Osmolality 283 mOsm/kg (285-295) L 01/31/23 16:23 Calcium 9.1 mg/dL (8.5-10.5) 01/31/23 16:23 Total Bilirubin 0.4 mg/dL (0.15-1.2) 01/31/23 16:23 AST 39 U/L (0-40) 01/31/23 16:23 ALT 45 U/L (0-41) H 01/31/23 16:23 Alkaline Phosphatase 72 U/L (40-130) 01/31/23 16:23 Total Protein 7.7 g/dL (6.6-8.7) 01/31/23 16:23 Albumin 4.7 g/dL (3.5-5.2) 01/31/23 16:23 Globulin 3.0 g/dL (1.3-4.6) 01/31/23 16:23 Lipase 24 U/L (13-60) 01/31/23 16:23 Discharge Plan Discharge Patient Disposition: Home Clinical Impression: Abdominal pain, Vomiting Condition: Stable Prescriptions: New ondansetron 4 mg tablet,disintegrating 4 mg PO Q6H PRN (Reason: nausea and vomiting) Qty: 14 0RF No Action hydroxyzine pamoate [Vistaril] 50 mg capsule 50 mg PO BID PRN (Reason: acute anxiety) Qty: 20 0RF Vistaril 50 mg capsule 50 mg PO Q8H PRN (Reason: Acute anxiety) Qty: 30 0RF Lidocaine Viscous 2 % solution 1 applic mucous membrane Q3H PRN (Reason: pain) Qty: 100 0RF Rx Instructions: apply to cotton ball and then apply cotton ball to affected tooth hydroxyzine HCl 25 mg tablet 25 mg PO Q6H PRN (Reason: anxiety) Qty: 7 0RF Discharge Orders: Discharge ED (Routine); Ordered 01/31/23 Ordered By: Niecy Stephenson Referrals: Emilie Galvez FNP [Primary Care Provider] - 1-3 days Discharge Diet: Advance as tolerated Discharge Activity: Resume usual activity Patient Instructions: Acute Nausea and Vomiting (ED), Abdominal Pain (ED) Coding Level of Care Code ED Manager Environmental Affairs for Mack Leung
== END 2023-01-31 18:31 | disposition home or self-care (01) ==
PROVIDERS: Emergency Provider Emergency Medicine; PCP Nurse Practitioner Family
DX: R11.11 Vomiting without nausea (principal); R10.13 Epigastric pain
CPT/HCPCS: 74177; 80053; 83690; 85025; 96361; 96374; 96375; 99284; J1200; J2765; J7030

== ENCOUNTER 2023-02-08 21:11 | Emergency (ER) | payer SELFPAY ==
[2023-02-08 21:14] VITALS: BP 147/82; PULSE 75; RESP 18; TEMP 37; O2SAT 99; BMI 34.3
--- NOTE | 2023-02-08 21:20 | W.ED.SYNCOPE ---
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 Denies any worsening proving factors. Associated symptoms: Reports nausea; Deny abdominal pain, chest pain, fever(s) or headache(s) Review of Systems Const: Denies: fever(s), chills, body aches or change in appetite Eyes: Reports: blurry vision; Denies: eye discomfort ENMT: Denies: throat pain or dental pain Card: Reports: syncope; Denies: chest pain Resp: Denies: dyspnea GI: Reports: nausea and vomiting; Denies: abdominal pain or diarrhea : Denies: dysuria Musc: Denies: neck pain or back pain Skin/Breast: Denies: rash Neuro: Denies: headache(s) PFSH ED PFSH: Medical History Anxiety Gout Surgical History No pertinent past surgical history Social History Smoking and tobacco status: never smoked Alcohol intake: current Substance/Drug Use: never Physical Exam Const: COMMON NORMALS: no acute distress, patient oriented x3 and healthy appearing HENMT: COMMON NORMALS: normocephalic and atraumatic HEAD & SCALP: normocephalic and atraumatic Neck/C-Spine: COMMON NORMALS: full ROM and supple Chest: COMMONS NORMALS: normal inspection of the chest and normal palpation of entire chest wall Resp: COMMON NORMALS: normal respiratory effort, No retractions, No use of accessory muscles and clear to auscultation bilaterally AUSCULTATION: clear to auscultation bilaterally Cardio: COMMON NORMALS: regular rate, regular rhythm and No murmurs present (Cardio) RATE: regular rate RHYTHM: regular rhythm GI: COMMON NORMALS: Normal to inspection, nondistended, normoactive bowel sounds present, Soft to palpation, non-tender and no masses PALPATION: Yes Soft to palpation Extremity: COMMON NORMALS: normal to inspection and full ROM Neuro: COMMON NORMALS: patient oriented x3, moves all extremities and no focal motor deficits Psych: COMMON NORMALS: mental status grossly normal, Normal thought process present and cooperative THOUGHT PROCESS: Normal thought process present Skin: COMMON NORMALS: no rashes or lesions noted and no wounds GENERAL SKIN EXAM: no rashes or lesions noted Course Vital Signs: Vital signs: Vital Signs Temperature 98.6 F 02/08/23 21:14 Pulse Rate 75 02/08/23 21:14 Respiratory Rate 18 02/08/23 21:14 Blood Pressure 147/82 02/08/23 21:14 Pulse Oximetry 99 02/08/23 21:14 Oxygen Delivery Me thod Room Air 02/08/23 21:14 MDM - Syncope Medical Decision Making Patient presents here after a syncopal event likely from heat exposure he has been well-appearing here vital signs of been normal blood work is normal he feels much improved he is stable for discharge he is follow-up with PCP and return if worsening he understands agrees plan. Medical Records I reviewed the patient's medical records. Lab Data I reviewed the patient's lab results. 02/08/23 21:30 02/08/23 21:30 Laboratory Results WBC 13.1 10^3/uL (4.0-10.0) H 02/08/23 21:30 RBC 3.72 10^6/uL (4.1-5.3) L 02/08/23 21:30 Hgb 12.3 g/dL (11.7-16.6) 02/08/23 21:30 Hct 37.0 % (42.0-52.0) L 02/08/23 21:30 MCV 99.5 fl (80-94) H 02/08/23 21:30 MCH 33.1 pg (28.0-34.0) 02/08/23 21:30 MCHC 33.2 g/dL (30.0-36.0) 02/08/23 21:30 RDW 12.7 % (12.1-15.1) 02/08/23 21:30 Plt Count 243 10^3/cmm (130-400) 02/08/23 21:30 MPV 9.4 fL (7.4-10.4) 02/08/23 21: Neut % (Auto) 72.0 % 02/08/23 21:30 Lymph % (Auto) 17.0 % 02/08/23 21: [place] % (Auto) 8.6 % 02/08/23 21: Eos % (Auto) 0.8 % 02/08/23 21: Baso % (Auto) 0.4 % 02/08/23 21: Neut # (Auto) 9.43 10^3/uL (1.8-7.7) H 02/08/23 21: Lymph # (Auto) 2.2 10^3/uL (0.8-4.8) 02/08/23 21: [place] # (Auto) 1.1 10^3/uL (0.2-0.9) H 02/08/23 21: Eos # (Auto) 0.1 10^3/uL (0.0-0.8) 02/08/23 21: Baso # (Auto) 0.1 10^3/uL (0.0-0.1) 02/08/23 21: Nucleated RBC % (auto) 0 % 02/08/23: Nucleated RBCs # 0.0 /100WBC 02/08/23 21: Sodium 137 mmol/L (136-145) 02/08/23 21: Potassium 3.8 mmol/L (3.5-5.1) 02/08/23 21: Chloride 99 mmol/L (98-107) 02/08/23 21: Carbon Dioxide 24 mmol/L (22-29) 02/08/23 21: Anion Gap 17.8 (5-19) 02/08/23 21:30 BUN 10 mg/dL (6-20) 02/08/23 21: Creatinine 0.9 mg/dL (0.7-1.2) 02/08/23 21: GFR Calculation 96.0 mL/min (90-130) 02/08/23 21: Glucose 91 mg/dL (65-115) 02/08/23 21:30 Calcium 8.9 mg/dL (8.5-10.5) 02/08/23 21:30 Total Bilirubin 0.4 mg/dL (0.15-1.2) 02/08/23 21:30 AST 28 U/L (0-40) 02/08/23 21:30 ALT 31 U/L (0-41) 02/08/23 21:30 Alkaline Phosphatase 61 U/L (40-130) 02/08/23 21:30 Creatine Kinase 124 U/L (39-308) 02/08/23 21:30 Total Protein 6.8 g/dL (6.6-8.7) 02/08/23 21:30 Albumin 4.2 g/dL (3.5-5.2) 02/08/23 21:30 Globulin 2.6 g/dL (1.3-4.6) 02/08/23 21:30 EKG Data EKG 1: I personally reviewed and interpreted this EKG as follows: EKG interpretation date: 02/08/23 EKG interpretation time: 21:37 Interpretation: sinus yessenia hr [address] or t wave abnormalities qrs 98 qtc 396 Discharge Plan Discharge Patient Disposition: Home Clinical Impression: Syncope, Heat exhaustion Condition: Stable Prescriptions: No Action hydroxyzine pamoate [Vistaril] 50 mg capsule 50 mg PO BID PRN (Reason: acute anxiety) Qty: 20 0RF Vistaril 50 mg capsule 50 mg PO Q8H PRN (Reason: Acute anxiety) Qty: 30 0RF ondansetron 4 mg tablet,disintegrating 4 mg PO Q6H PRN (Reason: nausea and vomiting) Qty: 14 0RF Lidocaine Viscous 2 % solution 1 applic mucous membrane Q3H PRN (Reason: pain) Qty: 100 0RF Rx Instructions: apply to cotton ball and then apply cotton ball to affected tooth hydroxyzine HCl 25 mg tablet 25 mg PO Q6H PRN (Reason: anxiety) Qty: 7 0RF Discharge Orders: Discharge ED (Routine); Ordered 02/08/23 Ordered By: Niecy Stephenson Referrals: Emilie Galvez FNP [Primary Care Provider] - 1-3 days Discharge Diet: Advance as tolerated Discharge Activity: Resume usual activity Patient Instructions: Heat Exhaustion (ED), Syncope (ED) Coding Level of Care Code ED Psych Coordinator for Chg Xochitl
--- NOTE | 2023-02-08 21:37 | ECG_ITS ---
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 Measurements Intervals [place] Rate: 59 P: 59 CA: 167 QRS: 26 QRSD: 98 T: 10 QT: 398 QTc: 395 Interpretive Statements SINUS BRADYCARDIA Compared to ECG 09/01/2022 20:45:46 Sinus rhythm no longer present Electronically Signed On 02-09-2023 8:09:58 CDT by Gwen Coates M.D. [email or web address]
[2023-02-08 21:38] LABS: Basophils # 0.1 10^3/uL (0.0-0.1); Basophils % 0.4 %; Eosinophils # 0.1 10^3/uL (0.0-0.8); Eosinophils % 0.8 %; Hemoglobin 12.3 g/dL (11.7-16.6); Lymphocytes # 2.2 10^3/uL (0.8-4.8); Mean Corpuscular HGB Conc 33.2 g/dL (30.0-36.0); Mean Corpuscular Hemoglobin 33.1 pg (28.0-34.0); Mean Corpuscular Volume 99.5 fl (80-94); Mean Platelet Volume 9.4 fL (7.4-10.4); Monocytes # 1.1 10^3/uL (0.2-0.9); Monocytes % 8.6 %; Neutrophils # 9.43 10^3/uL (1.8-7.7); Nucleated Red Blood Cells % 0 %; Platelet Count 243 10^3/cmm (130-400); Red Blood Count 3.72 10^6/uL (4.1-5.3); Red Cell Distribution Width 12.7 % (12.1-15.1); White Blood Count 13.1 10^3/uL (4.0-10.0)
[2023-02-08] MEDS: sodium chloride 0.9% 1,000 ML 999 ML IV (21:51)
[2023-02-08 21:58] LABS: Alanine Aminotransferase 31 U/L (0-41); Albumin Level 4.2 g/dL (3.5-5.2); Alkaline Phosphatase 61 U/L (40-130); Anion Gap 17.8 (5-19); Aspartate Amino Transferase 28 U/L (0-40); Blood Urea Nitrogen 10 mg/dL (6-20); Calcium 8.9 mg/dL (8.5-10.5); Carbon Dioxide 24 mmol/L (22-29); Chloride 99 mmol/L (98-107); Creatine Phosphokinase 124 U/L (39-308); Globulin 2.6 g/dL (1.3-4.6); Glucose 91 mg/dL (65-115); Osmolality Calculated 283 mOsm/kg (285-295); Potassium 3.8 mmol/L (3.5-5.1); Sodium 137 mmol/L (136-145); Total Bilirubin 0.4 mg/dL (0.15-1.2); Total Protein 6.8 g/dL (6.6-8.7)
[2023-02-08 22:56] VITALS: BP 137/94; PULSE 65; RESP 18; O2SAT 99
== END 2023-02-08 23:10 | disposition home or self-care (01) ==
PROVIDERS: Emergency Provider Emergency Medicine; PCP Nurse Practitioner Family
DX: R55 Syncope and collapse (principal); T67.5XXA Heat exhaustion, unspecified, initial encounter; X30.XXXA Exposure to excessive natural heat, initial encounter
CPT/HCPCS: 36415; 80053; 82550; 85025; 93005; 99284; J7030

== ENCOUNTER 2023-03-03 22:08 | Emergency (ER) | payer SELFPAY ==
[2023-03-03 22:21] VITALS: BP 155/103; PULSE 76; RESP 16; TEMP 36.9; O2SAT 94; BMI 33.3
--- NOTE | 2023-03-03 22:46 | ED_ITS ---
HPI - Extremity Problem General: Chief complaint: Extremity Problem,Nontraumatic Stated complaint: left foot swelling Time Seen by Provider: 03/03/23 22:46 History of Present Illness: 37-year-old male patient comes in today with left foot pain of the first MTP joint radiating up his leg. Patient has a history of gout and has been on allopurinol before in the past but has been without the medicine for a while now. Patient had taken a dose of colchicine today with minimal to no relief. Patient came in tonight due to persistent pain and discomfort. Patient was concerned of other illness. Associated symptoms: Deny rash Review of Systems General: Reports: 10 or more systems reviewed and unremarkable except in HPI and below Musc: Reports: joint pain (First MTP left foot), joint swelling and joint redness Skin/Breast: Reports: erythema; Denies: rash PFSH ED PFSH: Medical History Anxiety Gout Surgical History No pertinent past surgical history Social History Smoking and tobacco status: never smoked Alcohol intake: current Substance/Drug Use: never Physical Exam Const: COMMON NORMALS: alert HENMT: COMMON NORMALS: normocephalic HEAD & SCALP: normocephalic Neck/C-Spine: COMMON NORMALS: full ROM Resp: COMMON NORMALS: normal respiratory effort and clear to auscultation b ilaterally AUSCULTATION: clear to auscultation bilaterally Cardio: COMMON NORMALS: regular rate and regular rhythm RATE: regular rate RHYTHM: regular rhythm GI: COMMON NORMALS: Soft to palpation and non-tender PALPATION: Yes Soft to palpation Extremity: LEFT LOWER EXTREMITY: Yes foot & digits (First MTP joint redness and swelling) Left foot and digits: Yes inspection, Yes palpation and Yes ROM Neuro: SENSORIUM/ORIENTATION: Yes alert Skin: COMMON NORMALS: turgor normal GENERAL SKIN EXAM: turgor normal Course Vital Signs: Vital signs: Vital Signs Temperature 98.4 F 03/03/23 22:21 Pulse Rate 76 03/03/23 22:21 Respiratory Rate 16 03/03/23 22:21 Blood Pressure 155/103 03/03/23 22:21 Pulse Oximetry 94 08/05/23 22:21 Oxygen Delivery Me thod Room Air 03/03/23 22:21 MDM - Extremity (Nontraumatic) Medical Decision Making 37-year-old male patient comes in today with complaints of redness and swelling to his first MTP joint of his left foot. Distal pulses are intact. Patient reports pain to his knee. Normal range of motion of the extremity. Respirations are even lungs are clear to auscultation. Skin is warm and dry. Differential diagnosis includes gout, cellulitis, DVT, other arthritis. D-dimer is negative. CBC had a mild leukocytosis at 12,000. CRP and sed rate was slightly elevated but not significant for severe infection or bony infection. X-ray of the foot showed some mild arthritis to the first MTP joint. Uric acid was at 6.7. Patient most likely has some gouty arthritis recommend steroids and NSAID and pain medication for patient. Patient reported understanding of care plan and need for follow-up for further treatment and evaluation. Lab Data 03/04/23 00:19 03/04/23 00:19 Radiology Impressions Foot X-Ray 03/03/23 22:57 IMPRESSION: No fracture or destructive lesion. No erosive change to suggest gout or inflammatory arthropathy. There is soft tissue swelling medial to the mildly arthritic appearing 1st metatarsophalangeal joint. Laboratory Results WBC 12.4 10^3/uL (4.0-10.0) H 03/04/23 00:19 RBC 3.69 10^6/uL (4.1-5.3) L 03/04/23 00:19 Hgb 12.4 g/dL (11.7-16.6) 03/04/23 00:19 Hct 36.8 % (42.0-52.0) L 03/04/23 00:19 MCV 99.7 fl (80-94) H 03/04/23 00:19 MCH 33.6 pg (28.0-34.0) 03/04/23 00:19 MCHC 33.7 g/dL (30.0-36.0) 03/04/23 00:19 RDW 12.8 % (12.1-15.1) 03/04/23 00:19 Plt Count 264 10^3/cmm (130-400) 03/04/23 00:19 MPV 9.1 fL (7.4-10.4) 03/04/23 00:19 Neut % (Auto) 66.2 % 03/04/23 00:19 Lymph % (Auto) 21.4 % 03/04/23 00:19 [place] % (Auto) 9.3 % 03/04/23 00:19 Eos % (Auto) 1.4 % 03/04/23 00:19 Baso % (Auto) 0.4 % 03/04/23 00:19 Neut # (Auto) 8.18 10^3/uL (1.8-7.7) H 03/04/23 00:19 Lymph # (Auto) 2.6 10^3/uL (0.8-4.8) 03/04/23 00:19 [place] # (Auto) 1.2 10^3/uL (0.2-0.9) H 03/04/23 00:19 Eos # (Auto) 0.2 10^3/uL (0.0-0.8) 03/04/23 00:19 Baso # (Auto) 0.1 10^3/uL (0.0-0.1) 03/04/23 00:19 Nucleated RBC % (auto) 0 % 03/04/23 00:19 Nucleated RBCs # 0.0 /100WBC 03/04/23 00:19 ESR 12 mm/hr (0-10) H 03/04/23 00:19 D-Dimer <= 0.27 ug/mIFEU (0-0.59) 03/04/23 00:19 Sodium 135 mmol/L (136-145) L 03/04/23 00:19 Potassium 3.9 mmol/L (3.5-5.1) 03/04/23 00:19 Chloride 99 mmol/L (98-107) 03/04/23 00:19 Carbon Dioxide 25 mmol/L (22-29) 03/04/23 00:19 Anion Gap 14.9 (5-19) 03/04/23 00:19 BUN 10 mg/dL (6-20) 03/04/23 00:19 Creatinine 0.8 mg/dL (0.7-1.2) 03/04/23 00:19 GFR Calculation 110.0 mL/min (90-130) 03/04/23 00:19 Glucose 120 mg/dL (65-115) H 03/04/23 00:19 Calculated Osmolality 280 mOsm/kg (285-295) L 03/04/23 00:19 Uric Acid 6.7 mg/dL (3.4-7.0) 03/04/23 00:19 Calcium 8.8 mg/dL (8.5-10.5) 03/04/23 00:19 Total Bilirubin 0.3 mg/dL (0.15-1.2) 03/04/23 00:19 AST 44 U/L (0-40) H 03/04/23 00:19 ALT 36 U/L (0-41) 03/04/23 00:19 Alkaline Phosphatase 79 U/L (40-130) 03/04/23 00:19 C-Reactive Protein 15.1 mg/L (0.0-4.9) H 03/04/23 00:19 Total Protein 7.2 g/dL (6.6-8.7) 03/04/23 00:19 Albumin 4.2 g/dL (3.5-5.2) 03/04/23 00:19 Globulin 3.0 g/dL (1.3-4.6) 03/04/23 00:19 Discharge Plan Discharge Patient Disposition: Home Clinical Impression: Gout Qualifiers: Gout site: foot Gout etiology: unspecified cause Chronicity: unspecified Laterality: left Qualified Code(s): M10.9 - Gout, unspecified Condition: Stable Prescriptions: New hydrocodone-acetaminophen 5-325 mg tablet 1 tab PO Q6H PRN (Reason: pain) Qty: 7 0RF prednisone 20 mg tablet 20 mg PO BID 5 Days Qty: 10 0RF indomethacin 50 mg capsule 50 mg PO TID Qty: 15 0RF Rx Instructions: administer with food or milk No Action hydroxyzine pamoate [Vistaril] 50 mg capsule 50 mg PO BID PRN (Reason: acute anxiety) Qty: 20 0RF Vistaril 50 mg capsule 50 mg PO Q8H PRN (Reason: Acute anxiety) Qty: 30 0RF ondansetron 4 mg tablet,disintegrating 4 mg PO Q6H PRN (Reason: nausea and vomiting) Qty: 14 0RF Lidocaine Viscous 2 % solution 1 applic mucous membrane Q3H PRN (Reason: pain) Qty: 100 0RF Rx Instructions: apply to cotton ball and then apply cotton ball to affected tooth hydroxyzine HCl 25 mg tablet 25 mg PO Q6H PRN (Reason: anxiety) Qty: 7 0RF Discharge Orders: Discharge ED (Routine); Ordered 03/04/23 Ordered By: Ashwin Gonzalez Referrals: Emilie Galvez FNP [Primary Care Provider] - Discharge Diet: Usual diet Discharge Activity: Increase activity as tolerated Patient Instructions: Gout (ED), Opioid Safety, Pain Management Activity Restrictions/Additional Instructions: Home and rest. Drink lots of fluids. Avoid alcohol and processed meats. Follow-up with primary care for further instruction. Return to ED for new concerns. Coding Level of Care Code ED Digital Asset Coordinator for Mack Leung
--- NOTE | 2023-03-03 22:57 | XRR_ITS ---
PROCEDURE INFORMATION: Exam: XR Left Foot Exam date and time: 03/03/2023 11:05 PM Age: 37 years old Clinical indication: Swelling, leg or foot; Additional info: Arthritis TECHNIQUE: Imaging protocol: Radiologic exam of the left foot. Views: 3 or more views. COMPARISON: No relevant prior studies available. FINDINGS: Bones/joints: Mild arthropathy noted at the 1st metatarsophalangeal joint. Irregularity at the base of the 1st proximal phalanx may reflect prior injury. Soft tissues: There is soft tissue swelling medial to the 1st MTP. No erosive disease. Dorsal soft tissue swelling of the forefoot. No radiopaque foreign body. XR/XR foot LT min 3V* [id number] IMPRESSION: No fracture or destructive lesion. No erosive change to suggest gout or inflammatory arthropathy. There is soft tissue swelling medial to the mildly arthritic appearing 1st metatarsophalangeal joint.
[2023-03-03] MEDS: dexamethasone 10 mg/mL INJ IM (23:16)
[2023-03-03] MEDS: ketorolac 30 mg/mL INJ IM (23:16)
[2023-03-03] MEDS: HYDROcodone-acetaminophen 10-325 mg Tablet 1 TAB PO (23:16)
[2023-03-04 00:26] LABS: Basophils # 0.1 10^3/uL (0.0-0.1); Basophils % 0.4 %; Eosinophils # 0.2 10^3/uL (0.0-0.8); Eosinophils % 1.4 %; Hematocrit 36.8 % (42.0-52.0); Hemoglobin 12.4 g/dL (11.7-16.6); Lymphocytes # 2.6 10^3/uL (0.8-4.8); Lymphocytes % 21.4 %; Mean Corpuscular HGB Conc 33.7 g/dL (30.0-36.0); Mean Corpuscular Hemoglobin 33.6 pg (28.0-34.0); Mean Corpuscular Volume 99.7 fl (80-94); Mean Platelet Volume 9.1 fL (7.4-10.4); Monocytes # 1.2 10^3/uL (0.2-0.9); Monocytes % 9.3 %; Neutrophils # 8.18 10^3/uL (1.8-7.7); Neutrophils % 66.2 %; Nucleated Red Blood Cells % 0 %; Platelet Count 264 10^3/cmm (130-400); Red Blood Count 3.69 10^6/uL (4.1-5.3); Red Cell Distribution Width 12.8 % (12.1-15.1); White Blood Count 12.4 10^3/uL (4.0-10.0)
[2023-03-04 00:37] LABS: Erythrocyte Sedimentation Rate 12 mm/hr (0-10)
[2023-03-04 00:49] LABS: D Dimer <= 0.27 ug/mIFEU (0-0.59)
[2023-03-04 00:56] LABS: Alanine Aminotransferase 36 U/L (0-41); Albumin Level 4.2 g/dL (3.5-5.2); Alkaline Phosphatase 79 U/L (40-130); Anion Gap 14.9 (5-19); Aspartate Amino Transferase 44 U/L (0-40); Blood Urea Nitrogen 10 mg/dL (6-20); C Reactive Protein 15.1 mg/L (0.0-4.9); Calcium 8.8 mg/dL (8.5-10.5); Carbon Dioxide 25 mmol/L (22-29); Chloride 99 mmol/L (98-107); Glucose 120 mg/dL (65-115); Osmolality Calculated 280 mOsm/kg (285-295); Potassium 3.9 mmol/L (3.5-5.1); Sodium 135 mmol/L (136-145); Total Bilirubin 0.3 mg/dL (0.15-1.2); Total Protein 7.2 g/dL (6.6-8.7); Uric Acid 6.7 mg/dL (3.4-7.0)
[2023-03-04 01:35] VITALS: BP 142/96; PULSE 74; RESP 16; O2SAT 95
== END 2023-03-04 01:37 | disposition home or self-care (01) ==
PROVIDERS: Emergency Provider Nurse Practitioner Family; PCP Nurse Practitioner Family
DX: M10.9 Gout, unspecified (principal)
CPT/HCPCS: 36415; 73630; 80053; 84550; 85025; 85378; 85651; 86140; 96372; 99284; J1100; J1885

== ENCOUNTER 2023-03-29 19:00 | Emergency (ER) | payer SELFPAY ==
[2023-03-29 19:14] VITALS: BP 133/87; PULSE 111; RESP 16; TEMP 36.7; O2SAT 96; BMI 33.3
--- NOTE | 2023-03-29 20:57 | ED_ITS ---
HPI - Eye Problem General: Chief complaint: Eye Problems Stated complaint: right eye blurry Time Seen by Provider: 03/29/23 20:56 History of Present Illness: 37-year-old male patient comes in today with complaints of right eye foreign body sensation. 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 Patient reports no welding or grinding. Patient reports tearing from the eye but no significant change in vision. Patient appears nontoxic. Review of Systems General: Reports: 10 or more systems reviewed and unremarkable except in HPI and below Eyes: Reports: eye discomfort, eye discharge, eye redness and increased production of tears PFSH ED PFSH: Medical History Anxiety Gout Surgical History No pertinent past surgical history Social History Smoking and tobacco status: never smoked Alcohol intake: current Substance/Drug Use: never Physical Exam Const: COMMON NORMALS: alert HENMT: COMMON NORMALS: atraumatic HEAD & SCALP: atraumatic Eye: COMMON NORMALS: Equal, round and reactive pupils present VISUAL ACUITY: Yes acuity normal ALIGNMENT: Yes alignment normal EYELID: eyelid abnormality right upper eyelid swelling and right lower eyelid swelling CONJUNCTIVA: Yes conjunctival abnormal positive right conjunctival injection SCLERA: sclerae normal CORNEA: Yes fluorescein used and other (Foreign body 4 o'clock position within the iris) PUPIL: Yes Equal, round and reactive pupils present and Yes Pupil accommodation reflex normal EOM: Yes EOM abnormal EYE IMAGES: 1. Foreign body 0.2 mm Resp: COMMON NORMALS: normal respiratory effort Cardio: COMMON NORMALS: regular rate RATE: regular rate Extremity: COMMON NORMALS: no pedal edema Neuro: SENSORIUM/ORIENTATION: Yes alert Skin: COMMON NORMALS: turgor normal GENERAL SKIN EXAM: turgor normal Procedures FB Removal Eye Location: eye (R) Topical anesthetic used: tetracaine Foreign body: metal Evidence of corneal penetration: No Technique: irrigation and needle Procedure performed under: direct visualization with magnification Post-procedure medication: ophthalmic antibiotic Patient tolerated procedure: well Course Vital Signs: Vital signs: Vital Signs Temperature 98.1 F 03/29/23 19:14 Pulse Rate 111 H 03/29/23 19:14 Respiratory Rate 16 03/29/23 19:14 Blood Pressure 133/87 03/29/23 19:14 Pulse Oximetry 96 03/29/23 19:14 Oxygen Delivery Me thod Room Air 03/29/23 19:14 MDM - Eye Problem Medical Decision Making 37-year-old male patient comes in today with foreign body to the right eye. On exam there is a small speck of metal noted to approximate the 4 o'clock position of the right eye to the pupil within the iris. No laceration was noted. Some inflammation and swelling was noted to the eyelids. Pupils were equal and reactive. No changes in acuity. Differential diagnosis includes not limited to corneal ulceration, corneal laceration, corneal foreign body, iritis, conjunctivitis. Foreign body was removed with level of needle under anesthetic. Visualized complete removal of foreign body. Patient be continued on antibiotic eyedrops and recommend to follow-up with eye critical care clinical nurse specialist for repeat evaluation and removal of any rust ring or remainder of foreign body as needed. Discharge Plan Discharge Patient Disposition: Home Clinical Impression: Foreign body in eye Qualifiers: Encounter type: initial encounter Laterality: right Qualified Code(s): T15.91XA - Foreign body on external eye, part unspecified, right eye, initial encounter Condition: Stable Prescriptions: No Action hydroxyzine pamoate [Vistaril] 50 mg capsule 50 mg PO BID PRN (Reason: acute anxiety) Qty: 20 0RF Vistaril 50 mg capsule 50 mg PO Q8H PRN (Reason: Acute anxiety) Qty: 30 0RF ondansetron 4 mg tablet,disintegrating 4 mg PO Q6H PRN (Reason: nausea and vomiting) Qty: 14 0RF Lidocaine Viscous 2 % solution 1 applic mucous membrane Q3H PRN (Reason: pain) Qty: 100 0RF Rx Instructions: apply to cotton ball and then apply cotton ball to affected tooth hydroxyzine HCl 25 mg tablet 25 mg PO Q6H PRN (Reason: anxiety) Qty: 7 0RF hydrocodone-acetaminophen 5-325 mg tablet 1 tab PO Q6H PRN (Reason: pain) Qty: 7 0RF indomethacin 50 mg capsule 50 mg PO TID Qty: 15 0RF Rx Instructions: administer with food or milk Discharge Orders: Discharge ED (Routine); Ordered 03/29/23 Ordered By: Ashwin Gonzalez Referrals: Emilie Galvez FNP [Primary Care Provider] - Discharge Diet: Usual diet Discharge Activity: Increase activity as tolerated Patient Instructions: Corneal Abrasion (ED) Activity Restrictions/Additional Instructions: Follow-up with eye critical care clinical nurse specialist in the morning for reevaluation of the eye to ensure complete removal of the foreign body. Use antibiotic eyedrops 1 drop 4 times a day for the next 7 days for healing and prevention of infection in the eye. Use tetracaine eyedrops 1 drop every 3 hours as needed for pain to the eye for only 48 hours. Follow-up with primary care as needed. Return to ED for new concerns. 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
[2023-03-29] MEDS: fluorescein 1 mg Strip EYE-RIGHT (21:54)
[2023-03-29] MEDS: neomycin-poly-dex Op 5 mL Btl 2 DROP EYE-RIGHT (21:55)
[2023-03-29] MEDS: eye irrigation 30 mL Btl EYE-RIGHT (21:56)
[2023-03-29] MEDS: tetracaine 0.5% Op Soln 4 mL Btl 1 DROP EYE-RIGHT (21:56)
== END 2023-03-29 22:12 | disposition home or self-care (01) ==
PROVIDERS: Emergency Provider Nurse Practitioner Family; PCP Nurse Practitioner Family
DX: T15.91XA Foreign body on external eye, part unspecified, right eye, initial encounter (principal); X58.XXXA Exposure to other specified factors, initial encounter
CPT/HCPCS: 65205; 99283

== ENCOUNTER 2023-06-05 17:14 | Emergency (ER) | payer OTHER, SELFPAY ==
--- NOTE | 2023-06-05 17:16 | XRR_ITS ---
PROCEDURE INFORMATION: Exam: XR Right Elbow Exam date and time: 06/05/2023 5:19 PM Age: 37 years old Clinical indication: Pain; Elbow; Right; Additional info: Injury TECHNIQUE: Imaging protocol: Radiologic exam of the right elbow. Views: 3 or more views. COMPARISON: No relevant prior studies available. FINDINGS: Bones/joints: Normal. Soft tissues: Normal. XR/XR elbow RT min 3V* [id number] IMPRESSION: No acute findings.
[2023-06-05 17:18] VITALS: BP 158/99; PULSE 89; RESP 16; TEMP 37.3; O2SAT 97; BMI 34.3
--- NOTE | 2023-06-05 18:32 | W.ED.EXTPRO ---
HPI - Extremity Problem General: Chief complaint: Extremity Injury, Upper Stated complaint: rt elbow inj Time Seen by Provider: 06/05/23 17:22 Source: patient and family Mode of arrival: ambulatory Limitations: no limitations History of Present Illness: Patient presents emergency department today accompanied by significant other for evaluation treatment of right elbow pain. Patient reports that several days ago he indicated he got a bug bite on the back of his neck. He admits he has been scratching at it but it has become more sore and tender. He states since that time he has developed soreness and tenderness of his right elbow. He is concerned that he may have gotten an infection from his bug bite into his joint. Patient has not had fevers. He complains of pain with range of motion at the elbow. Patient is right-handed. Prior to onset of his discomfort he had been doing yard work and significant other indicates he just started a job where he does a lot of lifting and carrying of heavy boxes. Patient indicates pain on the posterior elbow at the olecranon. Patient denies tingling, numbness, or weakness into the hand or fingers. Review of Systems General: Reports: 10 or more systems reviewed and unremarkable except in HPI and below PFSH ED PFSH: Medical History Anxiety Gout Surgical History No pertinent past surgical history Social History Smoking and tobacco/nicotine status: never used tobacco/nicotine Alcohol intake: current Substance/Drug Use: never Physical Exam Const: COMMON NORMALS: no acute distress, patient oriented x3 and alert HENMT: COMMON NORMALS: normocephalic, atraumatic and hearing grossly normal bilaterally HEAD & SCALP: normocephalic and atraumatic Eye: COMMON NORMALS: Equal, round and reactive pupils present, EOMs intact bilaterally and conjunctivae normal CONJUNCTIVA: Yes conjunctivae normal PUPIL: Yes Equal, round and reactive pupils present Neck/C-Spine: COMMON NORMALS: full ROM and no JVD Lymph: LYMPHATIC: no lymphadenopathy noted Resp: COMMON NORMALS: normal respiratory effort, No retractions and No use of accessory muscles Cardio: COMMON NORMALS: no JVD and regular rate RATE: regular rate Back/Pelvis: COMMON NORMALS: thoraco-lumbar ROM normal Extremity: NARRATIVE EXTREMITY EXAM: Patient demonstrates full range of motion to the right shoulder, right elbow, right wrist, and right fingers. Patient does indicate pain on flexion extension of his elbow and pain is worse on palpation to the tip of the olecranon. There is no erythema or warmth appreciated to the joint. No signs of wounds or abrasions. Neuro: COMMON NORMALS: patient oriented x3 SENSORIUM/ORIENTATION: Yes alert Psych: COMMON NORMALS: mental status grossly normal, Normal thought process present, cooperative and normal affect THOUGHT PROCESS: Normal thought process present Skin: COMMON NORMALS: no rashes or lesions noted and turgor normal NARRATIVE SKIN EXAM: Patient has a small scab noted to the mid upper back at the base of the neck without bleeding. There is a very small area of erythema surrounding this approximately 0.75 cm to 1 cm without bull's-eye lesion appreciated. No signs of active draining. There is some induration at this spot and patient indicates tenderness on palpation. GENERAL SKIN EXAM: no rashes or lesions noted and turgor normal Course Vital Signs: Vital signs: Vital Signs Temperature 99.2 F 06/05/23 17:18 Pulse Rate 89 06/05/23 17:18 Respiratory Rate 16 06/05/23 17:18 Blood Pressure 158/99 06/05/23 17:18 Pulse Oximetry 97 06/05/23 17:18 MDM - Extremity (Nontraumatic) Medical Decision Making Patient had an x-ray ordered out of triage. It was read negative for any acute concerns. Based on the patient's complaints of worsening pain with range of motion and tenderness on the olecranon coupled with recent yardwork and a new job requiring him to perform repetitive motion by picking up, lifting, carrying heavy boxes, I do think patient most likely has olecranon bursitis and even possibly some tendinitis in his elbow. Explained to the patient I do not think he has any concerns for infection as he shows no signs of redness or warmth of the joint, he still has mobility at the joint, and he has no fever. Also, the site of where he thinks the infection may have started appears to be a small bug bite-even possibly a tick given that he was outside over the warm weekend. Discussed treatment with doxycycline to cover for potential tick illness as there is some erythema surrounding this punctate scabbed region. I also treated with [id number] steroid and NSAID and muscle relaxer for his pain. Patient was given a day or 2 of work as he needs to try and relax and rest the joint. Encouraged application of ice to the back of the elbow. He is supposed be seeing a new primary care doctor this week and encouraged him to follow-up with his elbow as he may have recurrent issues given his new job. Patient verbalizes understanding and agreement to treatment plan. Differential Diagnosis Unlikely herpes zoster, gout, cellulitis, superficial thrombophlebitis or deep venous thrombosis of upper extremity Lab Data Radiology Impressions Elbow X-Ray 06/05/23 17:16 IMPRESSION: No acute findings. All radiology interpretation(s) finalized by discharge Discharge Plan Discharge Patient Disposition: Home Clinical Impression: Olecranon bursitis of right elbow, Arthralgia of right elbow, Insect bite Condition: Stable Prescriptions: New doxycycline hyclate 100 mg tablet 100 mg PO BID 10 Days Qty: 20 0RF naproxen 500 mg tablet 500 mg PO BID PRN (Reason: pain) Qty: 20 0RF tizanidine 4 mg capsule 4 mg PO Q8H PRN (Reason: muscle spasticity) Qty: 20 0RF methylprednisolone 4 mg tablets,dose pack See Rx Instructions PO .COMPLEX Qty: 21 0RF Rx Instructions: orally per package directions Voltaren Arthritis Pain 1 % gel 4 g topical QID Qty: 100 0RF Rx Instructions: apply to right elbow four times a day No Action hydroxyzine pamoate [Vistaril] 50 mg capsule 50 mg PO BID PRN (Reason: acute anxiety) Qty: 20 0RF Vistaril 50 mg capsule 50 mg PO Q8H PRN (Reason: Acute anxiety) Qty: 30 0RF ondansetron 4 mg tablet,disintegrating 4 mg PO Q6H PRN (Reason: nausea and vomiting) Qty: 14 0RF Lidocaine Viscous 2 % solution 1 applic mucous membrane Q3H PRN (Reason: pain) Qty: 100 0RF Rx Instructions: apply to cotton ball and then apply cotton ball to affected tooth hydroxyzine HCl 25 mg tablet 25 mg PO Q6H PRN (Reason: anxiety) Qty: 7 0RF hydrocodone-acetaminophen 5-325 mg tablet 1 tab PO Q6H PRN (Reason: pain) Qty: 7 0RF indomethacin 50 mg capsule 50 mg PO TID Qty: 15 0RF Rx Instructions: administer with food or milk Discharge Orders: Discharge ED (Routine); Ordered 06/05/23 Ordered By: Jacque Mota Referrals: Emilie Galvez FNP [Primary Care Provider] - Discharge Diet: Usual diet Discharge Activity: Limit activity as instructed Patient Instructions: Elbow Bursitis (ED) Activity Restrictions/Additional Instructions: X-ray today is negative for signs of any acute concerns. However, the location of your pain and description of your pain does seem consistent with an olecranon bursitis. This is often triggered by repetitive motion injuries. 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 This causes significant inflammation which causes pain and swelling at the joint. I am providing you medication to help with this. I know you have concerns regarding infection but, at this time I do not think there is infection of the joint. It does appear that you got a potential tick bite on the back of your neck. There is a little erythema in this area but, ticks can carry disease so I am starting you on a medication called doxycycline which treats tickborne illness. It also has covering for staph and strep which are the most common skin bacterial infections. This can also help give us coverage if you have concerns about your elbow being involved. I want you to apply an ice pack to the back of your elbow for 15 to 20 minutes, multiple times throughout the day. I am also providing you medication which will help with inflammation and pain. The tizanidine can make you feel drowsy and sedated so we do not recommend taking this medication if you are going to drive or work. I do recommend taking 2 days off work to be able to take all of your medications as prescribed without worrying about it interfering with your ability to work. You need to carefully watch for return of elbow discomfort-especially if your job is causing recurrence of discomfort. You may need to keep your elbow wrapped in a compression sleeve while you work to help prevent such injuries from redeveloping. I recommend reaching out to your new primary care doctor regarding the concerns about your elbow as you may have recurrence of bursitis and continued issues in the future. 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
[2023-06-05] MEDS: orphenadrine 30 mg/mL Inj 2 mL 60 MG IM (18:33)
[2023-06-05] MEDS: ketorolac 60 mg/2 mL INJ IM (18:35)
[2023-06-05] MEDS: dexamethasone 10 mg/mL INJ IM (18:38)
== END 2023-06-05 18:57 | disposition home or self-care (01) ==
PROVIDERS: Emergency Provider Physician Assistant; PCP Nurse Practitioner Family
DX: M70.21 Olecranon bursitis, right elbow (principal); M25.521 Pain in right elbow; S20.469A Insect bite (nonvenomous) of unspecified back wall of thorax, initial encounter; W57.XXXA Bitten or stung by nonvenomous insect and other nonvenomous arthropods, initial encounter
CPT/HCPCS: 73080; 96372; 99284; J1100; J1885; J2360

== ENCOUNTER 2023-07-23 13:08 | Emergency (ER) | payer OTHER, SELFPAY ==
[2023-07-23 13:14] VITALS: BP 173/102; RESP 16; TEMP 36.9; O2SAT 100; BMI 27.4
[2023-07-23 13:17] VITALS: BP 137/102; PULSE 73; TEMP 36.9; O2SAT 99; BMI 36.0
--- NOTE | 2023-07-23 13:44 | W.ED.GENADLT ---
HPI - General Adult General: Chief complaint: General Medical Stated complaint: fever,nausea Time Seen by Provider: 07/23/23 13:14 History of Present Illness: Patient presents to the ER with complaints of abdominal pain and nausea. This been going off and on for about the last 2 weeks. Patient says when he gets up he is nauseated and then every time he eats he gets worse. Patient's never complained of this before. Patient's not on any type of medicine for his stomach. He has no history of ulcers or peptic disease. No changes in medications. Patient [place] any fever chills diarrhea constipation. Review of Systems General: Reports: 10 or more systems reviewed and unremarkable except in HPI and below PFSH ED PFSH: Medical History Gout Anxiety Surgical History No pertinent past surgical history Social History Smoking and tobacco/nicotine status: never used tobacco/nicotine Alcohol intake: current Substance/Drug Use: never Physical Exam Const: COMMON NORMALS: no acute distress, average body habitus, patient oriented x3, no limitations, healthy appearing, alert and well nourished HENMT: COMMON NORMALS: normocephalic, atraumatic, hearing grossly normal bilaterally, external ears normal, Normal external nose present, moist oral mucous membranes and oropharynx normal HEAD & SCALP: normocephalic and atraumatic NOSE: Normal external nose present EXTERNAL EAR: Yes external ears normal Neck/C-Spine: COMMON NORMALS: full ROM, no lymphadenopathy, supple, no meningeal signs, no JVD and Thyroid normal THYROID: Thyroid normal Chest: COMMONS NORMALS: normal inspection of the chest and normal palpation of entire chest wall Resp: COMMON NORMALS: normal respiratory effort, No retractions, No use of accessory muscles and clear to auscultation bilaterally AUSCULTATION: clear to auscultation bilaterally Cardio: COMMON NORMALS: no JVD, regular rate, regular rhythm, S1 normal heart sound present, S2 normal heart sound present, No gallops present (Cardio), No clicks present (Cardio), No murmurs present (Cardio) and No rub (Cardio) RATE: regular rate RHYTHM: regular rhythm HEART SOUNDS: S1 normal heart sound present and S2 normal heart sound present GI: COMMON NORMALS: Normal to inspection, nondistended, normoactive bowel sounds present, Soft to palpation, non-tender, No hepatosplenomegaly present and no masses PALPATION: Yes Soft to palpation and Yes No hepatosplenomegaly present Neuro: COMMON NORMALS: patient oriented x3 SENSORIUM/ORIENTATION: Yes alert MENINGEAL SIGNS: Yes no meningeal signs Course Vital Signs: Vital signs: Vital Signs Temperature 98.5 F 07/23/23 13:17 Pulse Rate 73 07/23/23 13:17 Respiratory Rate 16 07/23/23 13:14 Blood Pressure 137/102 07/23/23 13:17 Pulse Oximetry 99 07/23/23 13:17 Oxygen Delivery Me thod Room Air 07/23/23 13:17 MDM - General Adult Medical Decision Making Patient CBC CMP lipase performed all of which was essentially benign. Patient was given GI cocktail which immediately helped the patient's upper epigastric abdominal pain. Patient be diagnosed with gastritis and sent home on some Pepcid and told to follow-up with his PCP within 7 to 10 days. Differential Diagnosis Gastritis, peptic ulcer disease, nausea vomiting, abdominal pain Medical Records I reviewed the patient's medical records. Lab Data 07/23/23 15:27 07/23/23 15:27 Laboratory Results WBC 10.49 10^3/uL (3.29-11.43) 07/23/23 15: RBC 4.15 10^6/uL (3.85-5.65) 07/23/23 15: Hgb 13.70 g/dL (11.27-16.99) 07/23/23 15: Hct 40.3 % (37-53) 07/23/23 15: MCV 97.1 fl (82-101) 07/23/23 15: MCH 33.0 pg (27-33) 07/23/23 15: MCHC 34.0 g/dL (30-55) 07/23/23 15: RDW 12.6 % (12.1-15.1) 07/23/23 15: Plt Count 296 10^3/cmm (157-399) 07/23/23 15: MPV 9.4 fL (7.4-10.4) 07/23/23 15:27 Neut % (Auto) 56.4 % 07/23/23 15: Lymph % (Auto) 31.2 % 07/23/23 15: [place] % (Auto) 9.9 % 07/23/23 15: Eos % (Auto) 1.2 % 07/23/23 15: Baso % (Auto) 0.4 % 07/23/23 15: Neut # (Auto) 5.92 10^3/uL (1.8-7.7) 07/23/23 15: Lymph # (Auto) 3.3 10^3/uL (0.8-4.8) 07/23/23 15: [place] # (Auto) 1.0 10^3/uL (0.2-0.9) H 07/23/23 15: Eos # (Auto) 0.1 10^3/uL (0.0-0.8) 07/23/23 15: Baso # (Auto) 0.0 10^3/uL (0.0-0.1) 07/23/23 15: Nucleated RBC % (auto) 0 % 07/23/23 15: Nucleated RBCs # 0.0 /100WBC 07/23/23 15: Sodium 139 mmol/L (136-145) 07/23/23 15: Potassium 4.0 mmol/L (3.5-5.1) 07/23/23 15: Chloride 100 mmol/L (98-107) 07/23/23 15: Carbon Dioxide 28 mmol/L (22-29) 07/23/23 15: Anion Gap 15.0 (5-19) 07/23/23 15: BUN 12 mg/dL (6-20) 07/23/23 15: Creatinine 0.9 mg/dL (0.7-1.2) 07/23/23 15: GFR Calculation 96.0 mL/min (90-130) 07/23/23 15: Glucose 93 mg/dL (65-115) 07/23/23 15: Calculated Osmolality 287 mOsm/kg (285-295) 07/23/23 15: Calcium 9.4 mg/dL (8.5-10.5) 07/23/23 15:27 Magnesium 2.0 mg/dL (1.7-2.3) 07/23/23 15:27 Total Bilirubin 0.2 mg/dL (0.15-1.2) 07/23/23 15:27 AST 20 U/L (0-40) 07/23/23 15:27 ALT 32 U/L (0-41) 07/23/23 15:27 Alkaline Phosphatase 65 U/L (40-130) 07/23/23 15:27 Total Protein 7.4 g/dL (6.6-8.7) 07/23/23 15:27 Albumin 4.5 g/dL (3.5-5.2) 07/23/23 15:27 Globulin 2.9 g/dL (1.3-4.6) 07/23/23 15:27 Lipase 29 U/L (13-60) 07/23/23 15:27 All radiology interpretation(s) finalized by discharge Discharge Plan Discharge Patient Disposition: Home Clinical Impression: Gastritis Condition: Stable Prescriptions: No Action hydroxyzine pamoate [Vistaril] 50 mg capsule 50 mg PO BID PRN (Reason: acute anxiety) Qty: 20 0RF Vistaril 50 mg capsule 50 mg PO Q8H PRN (Reason: Acute anxiety) Qty: 30 0RF ondansetron 4 mg tablet,disintegrating 4 mg PO Q6H PRN (Reason: nausea and vomiting) Qty: 14 0RF Lidocaine Viscous 2 % solution 1 applic mucous membrane Q3H PRN (Reason: pain) Qty: 100 0RF Rx Instructions: apply to cotton ball and then apply cotton ball to affected tooth hydroxyzine HCl 25 mg tablet 25 mg PO Q6H PRN (Reason: anxiety) Qty: 7 0RF hydrocodone-acetaminophen 5-325 mg tablet 1 tab PO Q6H PRN (Reason: pain) Qty: 7 0RF indomethacin 50 mg capsule 50 mg PO TID Qty: 15 0RF Rx Instructions: administer with food or milk naproxen 500 mg tablet 500 mg PO BID PRN (Reason: pain) Qty: 20 0RF tizanidine 4 mg capsule 4 mg PO Q8H PRN (Reason: muscle spasticity) Qty: 20 0RF methylprednisolone 4 mg tablets,dose pack See Rx Instructions PO .COMPLEX Qty: 21 0RF Rx Instructions: orally per package directions Voltaren Arthritis Pain 1 % gel 4 g topical QID Qty: 100 0RF Rx Instructions: apply to right elbow four times a day Discharge Orders: Discharge ED (Routine); Ordered 07/23/23 Ordered By: Liam Valencia Referrals: Anthony Lambert MD [Primary Care Provider] - 1 week Patient Instructions: Gastritis (DC) Activity Restrictions/Additional Instructions: Please take all your medicine as prescribed. Please follow-up with your family practice physician in the next 7 to 10 days for further evaluation and treatment. 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
[2023-07-23] MEDS: lidocaine 2% viscous 15 ML, aluminum-mag hydrox-simethicon 30 ML, sucralfate oral liq 1 GM PO (13:50)
[2023-07-23 15:32] LABS: Basophils % 0.4 %; Eosinophils # 0.1 10^3/uL (0.0-0.8); Eosinophils % 1.2 %; Hematocrit 40.3 % (37-53); Lymphocytes # 3.3 10^3/uL (0.8-4.8); Lymphocytes % 31.2 %; Mean Corpuscular Volume 97.1 fl (82-101); Mean Platelet Volume 9.4 fL (7.4-10.4); Monocytes % 9.9 %; Neutrophils # 5.92 10^3/uL (1.8-7.7); Neutrophils % 56.4 %; Nucleated Red Blood Cells % 0 %; Platelet Count 296 10^3/cmm (157-399); Red Blood Count 4.15 10^6/uL (3.85-5.65); Red Cell Distribution Width 12.6 % (12.1-15.1); White Blood Count 10.49 10^3/uL (3.29-11.43)
[2023-07-23 15:54] LABS: Alanine Aminotransferase 32 U/L (0-41); Albumin Level 4.5 g/dL (3.5-5.2); Alkaline Phosphatase 65 U/L (40-130); Aspartate Amino Transferase 20 U/L (0-40); Blood Urea Nitrogen 12 mg/dL (6-20); Calcium 9.4 mg/dL (8.5-10.5); Carbon Dioxide 28 mmol/L (22-29); Chloride 100 mmol/L (98-107); Globulin 2.9 g/dL (1.3-4.6); Glucose 93 mg/dL (65-115); Lipase 29 U/L (13-60); Osmolality Calculated 287 mOsm/kg (285-295); Sodium 139 mmol/L (136-145); Total Bilirubin 0.2 mg/dL (0.15-1.2); Total Protein 7.4 g/dL (6.6-8.7)
[2023-07-23 16:18] VITALS: BP 163/93; PULSE 65; O2SAT 100
== END 2023-07-23 16:19 | disposition home or self-care (01) ==
PROVIDERS: Emergency Provider Emergency Medicine; PCP Family Medicine
DX: K29.70 Gastritis, unspecified, without bleeding (principal)
CPT/HCPCS: 36415; 80053; 83690; 83735; 85025; 99283

== ENCOUNTER 2023-07-27 16:10 | Emergency (ER) | payer OTHER, SELFPAY ==
[2023-07-27 16:19] VITALS: BP 172/103; PULSE 73; RESP 18; TEMP 36.4; O2SAT 98
--- NOTE | 2023-07-27 16:49 | ED_ITS ---
HPI - Dental/Oral General: Chief complaint: General Medical Stated complaint: denture is stuck in gum Time Seen by Provider: 07/27/23 16:32 Source: patient Mode of arrival: ambulatory Limitations: no limitations History of Present Illness: Patient is a 37-year-old male who presents to ED today with a complaint related to his partial dental bridge. Patient states he was eating when the partial became dislodged and states the metal clasp is now stuck around one of his incisors. He states he is not able to talk, eat, drink secondary to the dislodged partial. MD Complaint: tooth pain Onset (ago): hour(s) Duration: constant Severity: moderate Associated symptoms: Reports no associated symptoms Treatment prior to arrival: none Review of Systems ENMT: Reports: other (problem with denture partial ) [facility] ED PFSH: Medical History Gout Anxiety Surgical History No pertinent past surgical history Social History Smoking and tobacco/nicotine status: never used tobacco/nicotine Alcohol intake: current Substance/Drug Use: never Physical Exam Const: COMMON NORMALS: no acute distress, patient oriented x3, no limitations and alert GENERAL APPEARANCE: cooperative HENMT: OTHER: overall poor dentition with many caries and extractions; he has a partial bridge to his central upper teeth that is dislodged with a metal clasp that is stuck around one of this L upper incisors with the metal clasp digging into his gumline Neuro: COMMON NORMALS: patient oriented x3 SENSORIUM/ORIENTATION: Yes alert Procedures Nerve Block Nerve Block 1: Local Anesthetic: lidocaine 1% Amount of anesthesia used (mL): 2.0 Side: left Nerve Blocks: other (oral nerve block) Procedure Successful: Yes Patient Tolerated Procedure: well Complications: none Additional Comments: partial dental implant clasp was able to be freed from tooth Course Vital Signs: Vital signs: Vital Signs Temperature 97.6 F 07/27/23 16:19 Pulse Rate 73 07/27/23 16:19 Respiratory Rate 18 07/27/23 16:19 Blood Pressure 172/103 07/27/23 16:19 Pulse Oximetry 98 07/27/23 16:19 Oxygen Delivery Me thod Room Air 12/29/23 16:19 MDM - Dental/Oral Medical Decision Making Partial dental implant was successfully removed without difficulty. Medical Records I reviewed the patient's medical records. No radiology studies performed this visit Discharge Plan Discharge Patient Disposition: Home Clinical Impression: Broken clasp of denture Condition: Stable Prescriptions: No Action hydroxyzine pamoate [Vistaril] 50 mg capsule 50 mg PO BID PRN (Reason: acute anxiety) Qty: 20 0RF Vistaril 50 mg capsule 50 mg PO Q8H PRN (Reason: Acute anxiety) Qty: 30 0RF ondansetron 4 mg tablet,disintegrating 4 mg PO Q6H PRN (Reason: nausea and vomiting) Qty: 14 0RF Pepcid 40 mg tablet 40 mg PO BID Qty: 30 0RF Lidocaine Viscous 2 % solution 1 applic mucous membrane Q3H PRN (Reason: pain) Qty: 100 0RF Rx Instructions: apply to cotton ball and then apply cotton ball to affected tooth hydroxyzine HCl 25 mg tablet 25 mg PO Q6H PRN (Reason: anxiety) Qty: 7 0RF hydrocodone-acetaminophen 5-325 mg tablet 1 tab PO Q6H PRN (Reason: pain) Qty: 7 0RF indomethacin 50 mg capsule 50 mg PO TID Qty: 15 0RF Rx Instructions: administer with food or milk naproxen 500 mg tablet 500 mg PO BID PRN (Reason: pain) Qty: 20 0RF tizanidine 4 mg capsule 4 mg PO Q8H PRN (Reason: muscle spasticity) Qty: 20 0RF methylprednisolone 4 mg tablets,dose pack See Rx Instructions PO .COMPLEX Qty: 21 0RF Rx Instructions: orally per package directions Voltaren Arthritis Pain 1 % gel 4 g topical QID Qty: 100 0RF Rx Instructions: apply to right elbow four times a day Discharge Orders: Discharge ED (Routine); Ordered 07/27/23 Ordered By: Carolyn Oneil Referrals: Anthony Lambert MD [Primary Care Provider] - Coding Level of Care Code 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
== END 2023-07-27 16:59 | disposition home or self-care (01) ==
PROVIDERS: Emergency Provider Physician Assistant; PCP Family Medicine
DX: M27.63 Post-osseointegration mechanical failure of dental implant (principal)
CPT/HCPCS: 64450; 99282

== ENCOUNTER 2023-08-02 13:00 | Emergency (ER) | payer OTHER, SELFPAY ==
[2023-08-02 13:04] VITALS: BP 204/138; PULSE 141; RESP 22; TEMP 36.5; O2SAT 100; BMI 37.4
--- NOTE | 2023-08-02 13:09 | ECG_ITS ---
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 Measurements Intervals [place] Rate: 112 P: 53 MO: 172 QRS: 13 QRSD: 102 T: 15 QT: 327 QTc: 448 Interpretive Statements SINUS TACHYCARDIA MINIMAL ST DEPRESSION [0.025+ mV ST DEPRESSION] Compared to ECG 02/08/2023 21:37:21 ST (T wave) deviation now present Sinus bradycardia no longer present Electronically Signed On 08-02-2023 18:33:42 FIELD ACCOUNT MANAGER by Shreyas Jarquin M.D. [id number]
--- NOTE | 2023-08-02 13:13 | ED_ITS ---
HPI - SOB/Dyspnea 2 General: Chief Complaint: Shortness of Breath/Dyspnea Stated Complaint: high, sob, feels like hes gonna pass out Time Seen by Provider: 08/02/23 13:07 History of Present Illness: HPI Narrative: 37-year-old male patient comes in today for shortness of breath. About 1 to 2 hours prior to arrival patient had taken an edible gummy and had been drinking some alcohol. Patient reports since then he has had anxiety and episodes of shortness of breath. Patient does take medications for mental health disorder and for hypertension and cardiac arrhythmia. Associated symptoms: Deny chest pain Review of Systems 2 General: Reports: 10 or more systems reviewed and unremarkable except in HPI and below Card: Denies: chest pain Resp: Reports: dyspnea Psych: Reports: anxiety PFSH ED 2 PFSH: Medical History Gout Anxiety Surgical History No pertinent past surgical history Social History Smoking and tobacco/nicotine status: never used tobacco/nicotine Alcohol intake: current Substance/Drug Use: never Physical Exam 2 Const: COMMON NORMALS: alert HENMT: COMMON NORMALS: normocephalic HEAD & SCALP: normocephalic MOUTH: Normal oral and palatal mucosa present Neck/C-Spine: COMMON NORMALS: full ROM Resp: COMMON NORMALS: normal respiratory effort and clear to auscultation bilaterally AUSCULTATION: clear to auscultation bilaterally Cardio: COMMON NORMALS: regular rhythm RATE: tachycardic RHYTHM: regular rhythm GI: AUSCULTATION: Yes normoactive bowel sounds PALPATION: No Tenderness to palpation present (GI) Extremity: COMMON NORMALS: no pedal edema Neuro: SENSORIUM/ORIENTATION: Yes alert Skin: COMMON NORMALS: turgor normal GENERAL SKIN EXAM: turgor normal Course 2 Vital Signs: Vital signs: Vital Signs Temperature 97.7 F 08/02/23 13:04 Pulse Rate 87 08/02/23 14:25 Respiratory Rate 15 08/02/23 14:25 Blood Pressure 162/99 08/02/23 14:25 Pulse Oximetry 99 08/02/23 14:25 Oxygen Delivery Me thod Room Air 08/02/23 14:25 MDM - SOB/Dyspnea Medical Decision Making 37-year-old male patient comes in today for anxiety and increased shortness of breath. Patient endorses alcohol and THC use. Patient does not routinely take THC and believes it may be a reaction to this medication. Patient appears anxious. Patient appears in no pain. Respirations are even lungs are clear to auscultation. Heart rates tachycardic in the 100s. No edema is noted in the extremities. Skin is warm and dry. Differential diagnosis includes not limited to adverse drug effect, alcohol intoxication, exacerbation of anxiety disorder, electrolyte imbalance, CHF, atrial fib. Chest x-ray was normal. CBC and CMP was unremarkable. EtOH was normal. Urine for drug screen noted THC. Reviewed exam with patient with recommendations for treatment and follow-up. Patient was recommended to go home and rest and follow-up with primary care for further instructions. Return to ED for signs and symptoms of infection or new concerns. Lab Data 08/02/23 13:25 08/02/23 13:25 Labs/Radiology: Laboratory Results WBC 10.06 10^3/uL (3.29-11.43) 08/02/23 13:25 RBC 4.17 10^6/uL (3.85-5.65) 08/02/23 13:25 Hgb 13.50 g/dL (11.27-16.99) 08/02/23 13:25 Hct 40.0 % (37-53) 08/02/23 13:25 MCV 95.9 fl (82-101) 08/02/23 13:25 MCH 32.4 pg (27-33) 08/02/23 13:25 MCHC 33.8 g/dL (30-55) 08/02/23 13:25 RDW 12.6 % (12.1-15.1) 08/02/23 13:25 Plt Count 323 10^3/cmm (157-399) 08/02/23 13:25 MPV 9.2 fL (7.4-10.4) 08/02/23 13:25 Neut % (Auto) 50.0 % 08/02/23 13:25 Lymph % (Auto) 36.9 % 08/02/23 13:25 [place] % (Auto) 9.4 % 08/02/23 13:25 Eos % (Auto) 1.7 % 08/02/23 13:25 Baso % (Auto) 0.5 % 08/02/23 13:25 Neut # (Auto) 5.03 10^3/uL (1.8-7.7) 08/02/23 13:25 Lymph # (Auto) 3.7 10^3/uL (0.8-4.8) 08/02/23 13:25 [place] # (Auto) 1.0 10^3/uL (0.2-0.9) H 08/02/23 13:25 Eos # (Auto) 0.2 10^3/uL (0.0-0.8) 08/02/23 13:25 Baso # (Auto) 0.1 10^3/uL (0.0-0.1) 08/02/23 13:25 Nucleated RBC % (auto) 0 % 08/02/23 13:25 Nucleated RBCs # 0.0 /100WBC 08/02/23 13:25 Sodium 139 mmol/L (136-145) 08/02/23 13:25 Potassium 3.4 mmol/L (3.5-5.1) L 08/02/23 13:25 Chloride 102 mmol/L (98-107) 08/02/23 13:25 Carbon Dioxide 22 mmol/L (22-29) 08/02/23 13:25 Anion Gap 18.4 (5-19) 08/02/23 13:25 BUN 13 mg/dL (6-20) 08/02/23 13:25 Creatinine 0.8 mg/dL (0.7-1.2) 08/02/23 13:25 GFR Calculation 110.0 mL/min (90-130) 08/02/23 13:25 Glucose 108 mg/dL (65-115) 08/02/23 13:25 Calculated Osmolality 289 mOsm/kg (285-295) 08/02/23 13:25 Calcium 8.9 mg/dL (8.5-10.5) 08/02/23 13:25 Magnesium 1.8 mg/dL (1.7-2.3) 08/02/23 13:25 Total Bilirubin 0.3 mg/dL (0.15-1.2) 08/02/23 13:25 AST 30 U/L (0-40) 08/02/23 13:25 ALT 34 U/L (0-41) 08/02/23 13:25 Alkaline Phosphatase 70 U/L (40-130) 08/02/23 13:25 Total Protein 7.8 g/dL (6.6-8.7) 08/02/23 13:25 Albumin 4.4 g/dL (3.5-5.2) 08/02/23 13:25 Globulin 3.4 g/dL (1.3-4.6) 08/02/23 13:25 Urine Color Yellow (Yellow) 08/02/23 13:57 Urine Appearance Sl hazy (CLEAR) A 08/02/23 13:57 Urine pH 5 (5-7) 08/02/23 13:57 Ur Specific [place] 1.020 (1.005-1.030) 08/02/23 13:57 Urine Protein Neg (Negative) 08/02/23 13:57 Urine Glucose (UA) Norm (Normal) 08/02/23 13:57 Urine Ketones Negative (Negative) 08/02/23 13:57 Urine Blood Neg (Negative) 08/02/23 13:57 Urine Nitrate Negative (Negative) 08/02/23 13:57 Urine Bilirubin Neg (Negative) 08/02/23 13:57 Urine Urobilinogen Norm mg/dL (Negative) 08/02/23 13:57 Ur Leukocyte Esterase Negative (Negative) 08/02/23 13:57 Urine RBC None /hpf (0-2) 08/02/23 13:57 Urine WBC 0-4 /hpf (0-5) H 08/02/23 13:57 Ur Squamous Epith Cells 0-4 /hpf (0-5) H 08/02/23 13:57 Amorphous Sediment 1+ /hpf 08/02/23 13:57 Urine Bacteria 1+ /hpf (NONE) H 08/02/23 13:57 Fine Granular Casts Rare /lpf 08/02/23 13:57 Coarse Granular Casts 5-10 /lpf H 08/02/23 13:57 Urine Opiates Screen Negative ng/mL (Negative) 08/02/23 13:57 Ur Barbiturates Screen Negative ng/mL (Negative) 08/02/23 13:57 Ur Phencyclidine Scrn Negative ng/mL (Negative) 08/02/23 13:57 Ur Amphetamines Screen Negative ng/mL (Negative) 08/02/23 13:57 U Benzodiazepines Scrn Negative ng/mL (Negative) 08/02/23 13:57 Urine Cocaine Screen Negative ng/mL (Negative) 08/02/23 13:57 U Marijuana (THC) Screen Positive ng/mL (Negative) H 08/02/23 13:57 Ethyl Alcohol < 10 mg/dL (0-10) 08/02/23 13:25 All radiology interpretation(s) finalized by discharge EKG Data EKG 1: I personally reviewed and interpreted this EKG as follows: EKG Interpretation Date: 08/02/23 EKG interpretation time: 13:22 Prior EKG tracings: not available for review Interpretation: EKG shows sinus tachycardia, regular rate at 112 bpm, no ST elevation, no ectopy, no prior exam was available for immediate comparison. Dr. Stephenson reviewed the EKG prior to my visualization. Computer Generated Interpretation: Sinus tachycardia, minimal ST depression, abnormal rhythm EKG, unconfirmed report. Discharge Plan Discharge Patient Disposition: Home Clinical Impression: Cannabis intoxication Qualifiers: Complication of substance-induced condition: with perceptual disturbance Q ualified Code(s): F12.922 - Cannabis use, unspecified with intoxication with perceptual disturbance Condition: Stable Prescriptions: No Action losartan 50 mg tablet 50 mg PO QPM Zyloprim 100 mg tablet 100 mg PO BID omeprazole 40 mg capsule,delayed release(DR/EC) 40 mg PO DAILY paroxetine HCl 20 mg tablet 20 mg PO DAILY buspirone 10 mg tablet 10 mg PO BID metoprolol tartrate 50 mg tablet 50 mg PO DAILY Discharge Orders: Discharge ED (Routine); Ordered 08/02/23 Ordered By: Ashwin Gonzalez Referrals: Anthony Lambert MD [Primary Care Provider] - Discharge Diet: Usual diet Discharge Activity: Increase activity as tolerated Patient Instructions: Cannabis Use Disorder (ED) Activity Restrictions/Additional Instructions: Home and rest. Drink plenty water and fluids. Healthy diet and activity. Follow-up with primary care for further instructions. 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
--- NOTE | 2023-08-02 13:13 | XR_ITS ---
WS: [id number] Portable AP semiupright chest, 08/02/2023 Clinical Data: short of breath Comparison: Portable chest, 11/17/2021 Findings: No nodules, masses or effusions are seen. The heart is normal. The pulmonary vascularity is not increased. No pneumonia or pneumothorax is seen. Impression: Negative chest.
[2023-08-02 13:28] VITALS: BP 166/101; PULSE 102; RESP 15; O2SAT 95
[2023-08-02 13:30] LABS: Basophils # 0.1 10^3/uL (0.0-0.1); Basophils % 0.5 %; Eosinophils # 0.2 10^3/uL (0.0-0.8); Eosinophils % 1.7 %; Lymphocytes # 3.7 10^3/uL (0.8-4.8); Lymphocytes % 36.9 %; Mean Corpuscular HGB Conc 33.8 g/dL (30-55); Mean Corpuscular Hemoglobin 32.4 pg (27-33); Mean Corpuscular Volume 95.9 fl (82-101); Mean Platelet Volume 9.2 fL (7.4-10.4); Monocytes % 9.4 %; Neutrophils # 5.03 10^3/uL (1.8-7.7); Nucleated Red Blood Cells % 0 %; Platelet Count 323 10^3/cmm (157-399); Red Blood Count 4.17 10^6/uL (3.85-5.65); Red Cell Distribution Width 12.6 % (12.1-15.1); White Blood Count 10.06 10^3/uL (3.29-11.43)
--- NOTE | 2023-08-02 13:39 | PC.NURSE ---
this nurse asked pt if he was able to urinate. pt stated not yet. when this nurse left the room, pt stated he would hold it all day .
[2023-08-02 13:54] LABS: Alanine Aminotransferase 34 U/L (0-41); Albumin Level 4.4 g/dL (3.5-5.2); Alkaline Phosphatase 70 U/L (40-130); Anion Gap 18.4 (5-19); Aspartate Amino Transferase 30 U/L (0-40); Blood Urea Nitrogen 13 mg/dL (6-20); Calcium 8.9 mg/dL (8.5-10.5); Carbon Dioxide 22 mmol/L (22-29); Chloride 102 mmol/L (98-107); Globulin 3.4 g/dL (1.3-4.6); Glucose 108 mg/dL (65-115); Magnesium 1.8 mg/dL (1.7-2.3); Osmolality Calculated 289 mOsm/kg (285-295); Potassium 3.4 mmol/L (3.5-5.1); Sodium 139 mmol/L (136-145); Total Bilirubin 0.3 mg/dL (0.15-1.2); Total Protein 7.8 g/dL (6.6-8.7)
[2023-08-02 13:56] LABS: Alcohol Level < 10 mg/dL (0-10)
[2023-08-02 14:23] VITALS: BP 143/94; BP 149/98; BP 162/99; PULSE 102; PULSE 85; PULSE 87
[2023-08-02 14:25] VITALS: BP 162/99; PULSE 87; RESP 15; O2SAT 99
[2023-08-02 14:37] LABS: Amphetamines Screen Urine Negative (Negative); Barbiturates Screen Urine Negative (Negative); Benzodiazepines Screen Urine Negative (Negative); Cocaine Screen Urine Negative (Negative); Opiate Screen Urine Negative (Negative); PCP Screen Urine Negative (Negative); THC Screen Urine Positive (Negative)
[2023-08-02 14:46] LABS: Add Urine Microscopic? YES; Bilirubin Urine Neg (Negative); Blood Urine Neg (Negative); Glucose Urine UA Norm (Normal); Ketones Urine Negative (Negative); Leukocyte Esterase Urine Negative (Negative); Nitrate Urine Negative (Negative); Protein Urine Neg (Negative); Urine Appearance SL Hazy (CLEAR); Urine Color Yellow (Yellow); Urobilinogen Urine Norm (Negative); pH Urine 5 (5-7)
[2023-08-02 14:47] LABS: Amorphous Sediment Urine 1+ /hpf; Bacteria Urine 1+ /hpf; Squamous Epithelial Cell Urine 0-4 /hpf (0-5); WBC Urine 0-4 /hpf (0-5)
[2023-08-02 14:48] LABS: Add Urine Culture? No
[2023-08-02 14:50] LABS: Fine Granular Casts Urine RARE /lpf
[2023-08-02 15:08] VITALS: BP 162/99; PULSE 87; RESP 15; TEMP 36.5; O2SAT 99
== END 2023-08-02 15:09 | disposition home or self-care (01) ==
PROVIDERS: Emergency Provider Nurse Practitioner Family; PCP Family Medicine
DX: F12.922 Cannabis use, unspecified with intoxication with perceptual disturbance (principal)
CPT/HCPCS: 71045; 80053; 80306; 80307; 81001; 83735; 85025; 93005; 99285

== ENCOUNTER 2024-01-24 18:53 | Emergency (ER) | payer OTHER, SELFPAY ==
[2024-01-24 19:01] VITALS: BP 148/99; PULSE 102; RESP 16; TEMP 37.2; O2SAT 98; BMI 34.3
[2024-01-24 19:25] LABS: Basophils # 0.1 10^3/uL (0.0-0.1); Basophils % 0.4 %; Eosinophils # 0.2 10^3/uL (0.0-0.8); Eosinophils % 1.4 %; Hematocrit 41.2 % (37-53); Lymphocytes # 2.7 10^3/uL (0.8-4.8); Lymphocytes % 21.9 %; Mean Corpuscular HGB Conc 34.7 g/dL (30-55); Mean Corpuscular Hemoglobin 33.6 pg (27-33); Mean Corpuscular Volume 96.7 fl (82-101); Mean Platelet Volume 9.2 fL (7.4-10.4); Monocytes # 1.2 10^3/uL (0.2-0.9); Neutrophils # 8.13 10^3/uL (1.8-7.7); Neutrophils % 65.3 %; Nucleated Red Blood Cells % 0 %; Platelet Count 267 10^3/cmm (157-399); Red Blood Count 4.26 10^6/uL (3.85-5.65); Red Cell Distribution Width 13.4 % (12.1-15.1); White Blood Count 12.45 10^3/uL (3.29-11.43)
[2024-01-24 19:43] LABS: Alanine Aminotransferase 96 U/L (0-41); Albumin Level 4.9 g/dL (3.5-5.2); Alkaline Phosphatase 85 U/L (40-130); Anion Gap 19.6 (5-19); Aspartate Amino Transferase 80 U/L (0-40); Blood Urea Nitrogen 9 mg/dL (6-20); Calcium 9.6 mg/dL (8.5-10.5); Carbon Dioxide 21 mmol/L (22-29); Chloride 100 mmol/L (98-107); Creatinine Clr Calc Pharmacy 129.6519; Globulin 3.4 g/dL (1.3-4.6); Glomerular Filtration Rate 109.4 mL/min (90-130); Glucose 102 mg/dL (65-115); Lipase 34 U/L (13-60); Osmolality Calculated 283 mOsm/kg (285-295); Potassium 3.6 mmol/L (3.5-5.1); Sodium 137 mmol/L (136-145); Total Bilirubin 0.6 mg/dL (0.15-1.2); Total Protein 8.3 g/dL (6.6-8.7)
--- NOTE | 2024-01-24 19:54 | CTR_ITS ---
PROCEDURE INFORMATION: Exam: CT Abdomen And Pelvis With Contrast Exam date and time: 01/24/2024 8:39 PM Age: 38 years old Clinical indication: Abdominal pain; Epigastric; TECHNIQUE: Imaging protocol: Computed tomography of the abdomen and pelvis with contrast. Radiation optimization: All CT scans at this facility use at least one of these dose optimization techniques: automated exposure control; mA and/or kV adjustment per patient size (includes targeted exams where dose is matched to clinical indication); or iterative reconstruction. Contrast material: OMNI 350; Contrast volume: 100 ml; Contrast route: INTRAVENOUS (IV); COMPARISON: CT abdomen pelvis w con* [id number] 01/31/2023 5:32 PM RADIATION DOSE METRICS: Total DLP (mGy-cm): 766.6 FINDINGS: Liver: Normal. No mass. Gallbladder and biliary ducts: Normal. No calcified stones. No ductal dilation. Pancreas: Normal. No ductal dilation. Spleen: Normal. No splenomegaly. Adrenal glands: Normal. No mass. Kidneys and ureters: Normal. No hydronephrosis. Stomach and bowel: There are air-fluid levels in the distal colon suggesting mild nonspecific colitis versus other diarrheal illness. Appendix: There has been an appendectomy. Intraperitoneal space: Unremarkable. No free air. No significant fluid collection. Vasculature: Unremarkable. No abdominal aortic aneurysm. Lymph nodes: Unremarkable. No enlarged lymph nodes. Urinary bladder: Unremarkable as visualized. Reproductive: Unremarkable as visualized. 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 Soft tissues: Small fat containing umbilical hernia. CT/CT abdomen pelvis w con* [id number] IMPRESSION: There are air-fluid levels in the distal colon suggesting mild nonspecific colitis versus other diarrheal illness.
--- NOTE | 2024-01-24 19:56 | ED_ITS ---
HPI - Nausea/Vomiting/Diarrhea 2 General: Chief complaint: Nausea/Vomiting/Diarrhea Stated complaint: n/d chills cramps Time Seen by Provider: 01/24/24 19:41 Source: patient Mode of arrival: ambulatory Limitations: no limitations History of Present Illness: Patient is a 38-year-old male who presents to the emergency department complaining of epigastric abdominal pain for the past 2 days. Also was reporting some nausea, vomiting, and diarrhea. States pain has been constant since onset, he has never had it before. It does not radiate. Does not report a history of pancreatitis or heavy alcohol use. No pertinent medical history to report. Does not report any specific alleviating or exacerbating factors. Does not report any blood in his vomit or diarrhea. Has not taken anything for his symptoms. Does note that he was around his spouse who is also sick, but notes her symptoms were little different. MD elicited complaint: nausea, vomiting, diarrhea and abdominal pain Onset (ago): day(s) Description of vomiting: food contents Description of diarrhea: watery Associated nausea: Yes Associated abdominal pain: Yes Location of pain: Epigastric Exacerbating factors: none Relieving factors: none Associated symtoms: Reports nausea; Denies chest pain, diaphoresis, dizziness, dysuria, headache(s) or palpitations Review of Systems 2 General: Reports: 10 or more systems reviewed and unremarkable except in HPI and below Const: Denies: fever(s), chills, change in appetite, change in weight or diaphoresis ENMT: Denies: throat pain or hoarseness Card: Denies: chest pain, palpitations or lightheadedness Resp: Denies: dyspnea, productive cough or wheezing GI: Reports: abdominal pain, nausea, vomiting and diarrhea : Denies: flank pain, difficulty urinating, dysuria, urinary frequency or urinary urgency Musc: Denies: neck pain or back pain Skin/Breast: Denies: rash or new lesions Neuro: Denies: headache(s) or dizziness PFSH ED 2 PFSH: Medical History Gout Anxiety Surgical History No pertinent past surgical history Social History Smoking and tobacco/nicotine status: never used tobacco/nicotine Alcohol intake: current Substance/Drug Use: never Physical Exam 2 Const: COMMON NORMALS: no acute distress, average body habitus, patient oriented x3, no limitations, healthy appearing, alert and well nourished G ENERAL APPEARANCE: cooperative and comfortable ORIENTATION/CONSCIOUSNESS: Yes awake HENMT: COMMON NORMALS: normocephalic, atraumatic, hearing grossly normal bilaterally, external ears normal, Normal external nose present, Normal nasal mucous membranes and turbinates present and moist oral mucous membranes HEAD & SCALP: normocephalic and atraumatic NOSE: Normal external nose present and Normal nasal mucous membranes and turbinates present EXTERNAL EAR: Yes external ears normal Eye: COMMON NORMALS: Equal, round and reactive pupils present, EOMs intact bilaterally, conjunctivae normal and normal visual [place] by confrontation C ONJUNCTIVA: Yes conjunctivae normal PUPIL: Yes Equal, round and reactive pupils present Neck/C-Spine: COMMON NORMALS: full ROM, supple, no meningeal signs and no JVD Resp: COMMON NORMALS: normal respiratory effort, No retractions, No use of accessory muscles and clear to auscultation bilaterally AUSCULTATION: clear to auscultation bilaterally, no crackles, no rales, no rhonchi and no wheezes Cardio: COMMON NORMALS: no JVD, regular rate, regular rhythm, S1 normal heart sound present, S2 normal heart sound present, No gallops present (Cardio), No clicks present (Cardio), No murmurs present (Cardio), No rub (Cardio) and Peripheral pulses 2+ throughout RATE: regular rate RHYTHM: regular rhythm HEART SOUNDS: S1 normal heart sound present and S2 normal heart sound present PERIPHERAL PULSES: Peripheral pulses 2+ throughout GI: COMMON NORMALS: Normal to inspection, nondistended, normoactive bowel sounds present, Soft to palpation, No hepatosplenomegaly present and no masses AUSCULTATION: Yes normoactive bowel sounds PALPATION: Yes Soft to palpation, Yes Tenderness to palpation present (GI) (Very mild reproducible tenderness to palpation of the epigastrium), No Guarding due to palpation present (GI), No Rigid due to palpation and Yes No hepatosplenomegaly present RECTAL EXAM: Yes deferred : COMMON NORMALS: Yes no CVA tenderness BLADDER/KIDNEY EXAM: Yes no CVA tenderness Back/Pelvis: COMMON NORMALS: no CVA tenderness Extremity: COMMON NORMALS: normal to inspection and full ROM Neuro: COMMON NORMALS: patient oriented x3, moves all extremities, no focal motor deficits and no sensory deficits noted SENSORIUM/ORIENTATION: Yes alert MENINGEAL SIGNS: Yes no meningeal signs Psych: COMMON NORMALS: mental status grossly normal, cooperative and speech normal SPEECH: Yes normal speech Skin: COMMON NORMALS: no rashes or lesions noted GENERAL SKIN EXAM: no rashes or lesions noted Course 2 Vital Signs: Vital signs: Vital Signs Temperature 98.9 F 01/24/24 19:01 Pulse Rate 102 H 01/24/24 19:01 Respiratory Rate 16 01/24/24 19:01 Blood Pressure 148/99 01/24/24 19:01 Pulse Oximetry 98 01/24/24 19:01 Oxygen Delivery Me thod Room Air 01/24/24 19:01 MDM - Nausea/Vomiting/Diarrhea Medical Decision Making Patient presented for 2 days of epigastric pain associated with nausea vomiting diarrhea. No pertinent past medical history to report. Vitals on arrival unremarkable condition has remained stable. Physical exam ultimately unremarkable though he did have some epigastric tenderness to palpation. Lab work essentially was unremarkable, and CT abdomen commented on some potential colitis, likely of viral origin due to his reported exposure history. Patient does note some improvement of pain after receiving GI cocktail, as I believe he is dealing with a combination of viral gastroenteritis and some acute on chronic gastroesophageal reflux. I will refill his omeprazole that he has taken in the past, and informed him to enact GI soft/clear with diet. He is to take Tylenol for any pain and return with any new or worsening. Lab Data 01/24/24 19:20 01/24/24 19:20 Radiology Impressions Abdomen/Pelvis CT 01/24/24 19:54 IMPRESSION: There are air-fluid levels in the distal colon suggesting mild nonspecific colitis versus other diarrheal illness. Laboratory Results WBC 12.45 10^3/uL (3.29-11.43) H 01/24/24 19:20 RBC 4.26 10^6/uL (3.85-5.65) 01/24/24 19:20 Hgb 14.30 g/dL (11.27-16.99) 01/24/24 19:20 Hct 41.2 % (37-53) 01/24/24 19:20 MCV 96.7 fl (82-101) 01/24/24 19:20 MCH 33.6 pg (27-33) H 01/24/24 19:20 MCHC 34.7 g/dL (30-55) 01/24/24 19:20 RDW 13.4 % (12.1-15.1) 01/24/24 19:20 Plt Count 267 10^3/cmm (157-399) 01/24/24 19:20 MPV 9.2 fL (7.4-10.4) 01/24/24 19:20 Neut % (Auto) 65.3 % 01/24/24 19:20 Lymph % (Auto) 21.9 % 01/24/24 19:20 [place] % (Auto) 10.0 % 01/24/24 19:20 Eos % (Auto) 1.4 % 01/24/24 19:20 Baso % (Auto) 0.4 % 01/24/24 19:20 Neut # (Auto) 8.13 10^3/uL (1.8-7.7) H 01/24/24 19:20 Lymph # (Auto) 2.7 10^3/uL (0.8-4.8) 01/24/24 19:20 [place] # (Auto) 1.2 10^3/uL (0.2-0.9) H 01/24/24 19:20 Eos # (Auto) 0.2 10^3/uL (0.0-0.8) 01/24/24 19:20 Baso # (Auto) 0.1 10^3/uL (0.0-0.1) 01/24/24 19:20 Nucleated RBC % (auto) 0 % 01/24/24 19:20 Nucleated RBCs # 0.0 /100WBC 01/24/24 19:20 Sodium 137 mmol/L (136-145) 01/24/24 19:20 Potassium 3.6 mmol/L (3.5-5.1) 01/24/24 19:20 Chloride 100 mmol/L (98-107) 01/24/24 19:20 Carbon Dioxide 21 mmol/L (22-29) L 01/24/24 19:20 Anion Gap 19.6 (5-19) H 01/24/24 19:20 BUN 9 mg/dL (6-20) 01/24/24 19:20 Creatinine 0.8 mg/dL (0.7-1.2) 01/24/24 19:20 GFR Calculation 109.4 mL/min (90-130) 01/24/24 19:20 Glucose 102 mg/dL (65-115) 01/24/24 19:20 Calculated Osmolality 283 mOsm/kg (285-295) L 01/24/24 19:20 Calcium 9.6 mg/dL (8.5-10.5) 01/24/24 19:20 Total Bilirubin 0.6 mg/dL (0.15-1.2) 01/24/24 19:20 AST 80 U/L (0-40) H 01/24/24 19:20 ALT 96 U/L (0-41) H 01/24/24 19:20 Alkaline Phosphatase 85 U/L (40-130) 01/24/24 19:20 Total Protein 8.3 g/dL (6.6-8.7) 01/24/24 19:20 Albumin 4.9 g/dL (3.5-5.2) 01/24/24 19:20 Globulin 3.4 g/dL (1.3-4.6) 01/24/24 19:20 Lipase 34 U/L (13-60) 01/24/24 19:20 Urine Color Yellow (Yellow) 01/24/24 20:29 Urine Appearance Clear (CLEAR) 01/24/24 20:29 Urine pH 5 (5-7) 01/24/24 20:29 Ur Specific [place] 1.005 (1.005-1.030) 01/24/24 20:29 Urine Protein Neg (Negative) 01/24/24 20:29 Urine Glucose (UA) Norm (Normal) 01/24/24 20:29 Urine Ketones Negative (Negative) 01/24/24 20: Urine Blood Neg (Negative) 01/24/24 20: Urine Nitrate Negative 01/24/24 20:29 Urine Bilirubin Neg (Negative) 01/24/24 20:29 Urine Urobilinogen Neg mg/dL (Negative) 01/24/24 20:29 Ur Leukocyte Esterase Negative (Negative) 01/24/24 20:29 All radiology interpretation(s) finalized by discharge Discharge Plan Discharge Patient Disposition: Home Clinical Impression: Viral gastroenteritis, GERD (gastroesophageal reflux disease) Condition: Stable Prescriptions: Continued omeprazole 40 mg capsule,delayed release(DR/EC) 40 mg PO DAILY Qty: 30 1RF No Action losartan 50 mg tablet 50 mg PO QPM Zyloprim 100 mg tablet 100 mg PO BID paroxetine HCl 20 mg tablet 20 mg PO DAILY buspirone 10 mg tablet 10 mg PO BID metoprolol tartrate 50 mg tablet 50 mg PO DAILY Discharge Orders: Discharge ED (Routine); Ordered 01/24/24 Ordered By: Bernard Cooper Referrals: Anthony Lambert MD [Primary Care Provider] - Discharge Diet: As Directed and GI Soft Discharge Activity: Increase activity as tolerated Patient Instructions: Gastroenteritis (ED), GERD (Gastroesophageal Reflux Disease) (ED) Activity Restrictions/Additional Instructions: Take omeprazole as prescribed. GI soft diet/clear liquid diet. Follow-up with your primary care provider. Return with any new or concerning symptoms you may have. Tylenol for pain. Do not lie flat for at least 2 hours after eating. Avoid any triggering foods. Coding Level of Care Code ED [employer] for [employer] Leung
[2024-01-24] MEDS: lidocaine 2% viscous 15 ML, aluminum-mag hydrox-simethicon 30 ML, sucralfate oral liq 1 GM PO (20:22)
[2024-01-24 20:35] LABS: Add Urine Microscopic? NO; Charge for UA Resulting for Rev
[2024-01-24 20:39] LABS: Bilirubin Urine Neg (Negative); Blood Urine Neg (Negative); Glucose Urine UA Norm (Normal); Ketones Urine Negative (Negative); Leukocyte Esterase Urine Negative (Negative); Nitrate Urine Negative; Protein Urine Neg (Negative); Specific Gravity, Urine 1.005 (1.005-1.030); Urine Appearance Clear (CLEAR); Urine Color Yellow (Yellow); Urobilinogen Urine Neg (Negative); pH Urine 5 (5-7)
[2024-01-24] MEDS: iohexol 350 mg/mL 500 mL Btl (per mL) IV (20:41)
== END 2024-01-24 22:05 | disposition home or self-care (01) ==
PROVIDERS: Emergency Medicine; Emergency Provider Physician Assistant; PCP Family Medicine
DX: A08.4 Viral intestinal infection, unspecified (principal); K21.9 Gastro-esophageal reflux disease without esophagitis
CPT/HCPCS: 36415; 74177; 80053; 81003; 83690; 85025; 99285; Q9967

== ENCOUNTER 2024-02-20 14:36 | Emergency (ER) | payer OTHER, SELFPAY ==
--- NOTE | 2024-02-20 14:41 | XR_ITS ---
WS: [id number] XR elbow RT min 3V* [id number] REASON FOR EXAM: injury FINDINGS: No joint effusion or other soft tissue abnormality. Subtle asymmetry of the radial head however the exact configuration is noted on previous examination 06/05/2023. Joint spaces are intact and well preserved. XR/XR elbow RT min 3V* [id number] IMPRESSION: No acute abnormality.
[2024-02-20 15:09] VITALS: BP 152/99; PULSE 110; RESP 18; TEMP 36.8; O2SAT 96
--- NOTE | 2024-02-20 15:22 | ED_ITS ---
HPI - Extremity Problem General: Chief complaint: Extremity Injury, Upper Stated complaint: right elbow injury Time Seen by Provider: 02/20/24 14:46 Source: patient Mode of arrival: ambulatory Limitations: no limitations History of Present Illness: 38-year-old male states he fell on y and hit his right elbow on the ground he scattered abrasions right elbow states that elbows felt stiff and has had pain in his elbow especially when he moves it since and rates his pain a 6 out of 10 send some slight drainage from the wound denies any fever denies any other injuries from his fall Associated symptoms: Deny chest pain, fever(s) or rash Review of Systems Const: Denies: fever(s), chills, body aches or change in appetite ENMT: Denies: throat pain or dental pain Card: Denies: chest pain Resp: Denies: dyspnea GI: Denies: abdominal pain, nausea, vomiting or diarrhea Musc: Reports: extremity pain; Denies: neck pain or back pain Skin/Breast: Reports: erythema; Denies: rash Neuro: Denies: headache(s) PFSH ED PFSH: Medical History Gout Anxiety Surgical History No pertinent past surgical history Social History Smoking and tobacco/nicotine status: never used tobacco/nicotine Alcohol intake: current Substance/Drug Use: never Physical Exam Const: COMMON NORMALS: no acute distress, patient oriented x3 and healthy appearing HENMT: COMMON NORMALS: normocephalic and atraumatic HEAD & SCALP: normocephalic and atraumatic Eye: COMMON NORMALS: conjunctivae normal CONJUNCTIVA: Yes conjunctivae normal Neck/C-Spine: COMMON NORMALS: full ROM and supple Chest: COMMONS NORMALS: normal inspection of the chest Resp: COMMON NORMALS: normal respiratory effort Cardio: COMMON NORMALS: regular rate RATE: regular rate Extremity: COMMON NORMALS: full ROM NARRATIVE EXTREMITY EXAM: Abrasion noted to right elbow some very slight erythema no obvious deformity distal pulses sensation intact Neuro: COMMON NORMALS: patient oriented x3, moves all extremities and no focal motor deficits Psych: COMMON NORMALS: mental status grossly normal, Normal thought process present and cooperative THOUGHT PROCESS: Normal thought process present Skin: COMMON NORMALS: no rashes or lesions noted and no wounds GENERAL SKIN EXAM: no rashes or lesions noted Course Vital Signs: Vital signs: Vital Signs Temperature 98.2 F 02/20/24 15:09 Pulse Rate 110 H 02/20/24 15:09 Respiratory Rate 18 02/20/24 15:09 Blood Pressure 152/99 02/20/24 15:09 Pulse Oximetry 96 02/20/24 15:09 MDM - Extremity (Nontraumatic) Medical Decision Making Patient presents here with abrasion with a mild cellulitis to his right elbow I did review the x-ray and did not see any signs of fracture exam is benign we will place him on clindamycin he is stable for discharge follow-up with PCP return if worsening he understands agrees to plan. Medical Records I reviewed the patient's medical records. Lab Data Radiology Impressions Elbow X-Ray 02/20/24 14:41 IMPRESSION: No acute abnormality. All radiology interpretation(s) finalized by discharge Discharge Plan Discharge Patient Disposition: Home Clinical Impression: Abrasion of elbow, right Qualifiers: Encounter type: initial encounter Qualified Code(s): S50.311A - Abrasion of right elbow, initial encounter Cellulitis Qualifiers: Site of cellulitis: extremity Site of cellulitis of extremity: upper extremity Laterality: right Qualified Code(s): L03.113 - Cellulitis of right upper limb Condition: Stable Prescriptions: New Naprosyn 500 mg tablet 500 mg PO BID PRN (Reason: pain) Qty: 20 0RF clindamycin HCl 300 mg capsule 300 mg PO BID 7 Days Qty: 14 0RF No Action losartan 50 mg tablet 50 mg PO QPM Zyloprim 100 mg tablet 100 mg PO BID paroxetine HCl 20 mg tablet 20 mg PO DAILY buspirone 10 mg tablet 10 mg PO BID metoprolol tartrate 50 mg tablet 50 mg PO DAILY omeprazole 40 mg capsule,delayed release(DR/EC) 40 mg PO DAILY Qty: 30 1RF Discharge Orders: Discharge ED (Routine); Ordered 02/20/24 Ordered By: Niecy Stephenson Referrals: Anthony Lambert MD [Primary Care Provider] - 1-3 days Discharge Diet: Advance as tolerated Discharge Activity: Resume usual activity Patient Instructions: Cellulitis (ED), Abrasion (ED) Coding Level of Care Code ED Tax Collection Coordinator for Mack Leung
[2024-02-20] MEDS: HYDROcodone-acetaminophen 7.5-325 mg Tablet 1 TAB PO (15:33)
[2024-02-20] MEDS: clindamycin 150 mg Capsule 300 MG PO (15:33)
[2024-02-20 15:45] VITALS: PULSE 98; RESP 16; O2SAT 99
== END 2024-02-20 15:46 | disposition home or self-care (01) ==
PROVIDERS: Emergency Provider Emergency Medicine; PCP Family Medicine
DX: S50.311A Abrasion of right elbow, initial encounter (principal); L03.113 Cellulitis of right upper limb; W19.XXXA Unspecified fall, initial encounter
CPT/HCPCS: 73080; 99283

== ENCOUNTER 2024-08-13 15:28 | Emergency (ER) | payer OTHER, SELFPAY ==
[2024-08-13 15:29] VITALS: BP 140/92; PULSE 78; RESP 16; TEMP 36.7; O2SAT 98; BMI 36.2
--- NOTE | 2024-08-13 18:15 | XRR_ITS ---
PROCEDURE INFORMATION: Exam: XR Abdomen Exam date and time: 08/13/2024 6:29 PM Age: 38 years old Clinical indication: Abdominal pain; Additional info: Abd pain TECHNIQUE: Imaging protocol: Radiologic exam of the abdomen. Views: Frontal supine view of the abdomen. 1 View. COMPARISON: CT abdomen pelvis w con* [id number] 01/24/2024 8:39 PM FINDINGS: Gastrointestinal tract: Normal. No bowel dilation. Bones/joints: Unremarkable. XR/XR KUB [id number] IMPRESSION: No acute findings.
--- NOTE | 2024-08-13 18:17 | W.ED.ABDPA2 ---
HPI - Abdominal Pain General: Chief Complaint: Abdominal Pain Stated Complaint: left side abdominal pain Time Seen by Provider: 08/13/24 18:10 Source: patient Mode of arrival: ambulatory Limitations: no limitations History of Present Illness: 38-year-old male states he been having abdominal pain over the last 3 days states having cramping pain is also had some diarrhea and some nausea denies any vomiting. States the pain is mainly left upper quadrant rates it a 4 out of 10 currently he denies any fevers. Associated Symptoms: Reports nausea and vomiting; Denies chills, diarrhea and fever(s) Related Data Home Medications Medication Instructions Recorded Confirmed allopurinol 100 mg tablet 100 mg PO BID 08/02/23 08/02/23 (Zyloprim) buspirone 10 mg tablet 10 mg PO BID 08/02/23 08/02/23 losartan 50 mg tablet 50 mg PO QPM 08/02/23 08/02/23 metoprolol tartrate 50 mg tablet 50 mg PO DAILY 08/02/23 08/02/23 paroxetine HCl 20 mg tablet 20 mg PO DAILY 08/02/23 08/02/23 Previous Rx's Medication Instructions Recorded omeprazole 40 mg capsule,delayed 40 mg PO DAILY #30 caps 01/24/24 release naproxen 500 mg tablet (Naprosyn) 500 mg PO BID PRN pain #20 tabs 02/20/24 ondansetron 4 mg disintegrating 4 mg PO Q6H PRN nausea and 08/13/24 tablet vomiting #14 tabs Allergies Allergy/AdvReac Type Severity Reaction Status Date / Time cephalexin Allergy rash Verified 08/02/23 13:40 Penicillins Allergy swelling Verified 08/02/23 13:40 Review of Systems Const: Denies: fever(s), chills, body aches or change in appetite ENMT: Denies: throat pain or dental pain Card: Denies: chest pain Resp: Denies: dyspnea GI: Reports: abdominal pain, nausea and vomiting; Denies: diarrhea Musc: Denies: neck pain or back pain Skin/Breast: Denies: rash Neuro: Denies: headache(s) PFS ED PFSH: Medical History Gout Anxiety Surgical History No pertinent past surgical history Social History Smoking and tobacco/nicotine status: never used tobacco/nicotine Alcohol intake: current Substance/Drug Use: never Physical Exam Const: COMMON NORMALS: no acute distress, patient oriented x3 and healthy appearing HENMT: COMMON NORMALS: normocephalic and atraumatic HEAD & SCALP: normocephalic and atraumatic Eye: COMMON NORMALS: Equal, round and reactive pupils present and EOMs intact bilaterally PUPIL: Yes Equal, round and reactive pupils present Neck/C-Spine: COMMON NORMALS: full ROM and supple Chest: COMMONS NORMALS: normal inspection of the chest and normal palpation of entire chest wall Resp: COMMON NORMALS: normal respiratory effort, No retractions, No use of accessory muscles and clear to auscultation bilaterally AUSCULTATION: clear to auscultation bilaterally Cardio: COMMON NORMALS: regular rate, regular rhythm and No murmurs present (Cardio) RATE: regular rate RHYTHM: regular rhythm GI: COMMON NORMALS: Normal to inspection, nondistended, normoactive bowel sounds present, Soft to palpation, non-tender and no masses PALPATION: Yes Soft to palpation Extremity: COMMON NORMALS: normal to inspection and full ROM Neuro: COMMON NORMALS: patient oriented x3, moves all extremities and no focal motor deficits Psych: COMMON NORMALS: mental status grossly normal, Normal thought process present and cooperative THOUGHT PROCESS: Normal thought process present Skin: COMMON NORMALS: no rashes or lesions noted and no wounds GENERAL SKIN EXAM: no rashes or lesions noted Course Vital Signs: Vital signs: Vital Signs Temperature 98.0 F 08/13/24 15:29 Pulse Rate 73 08/13/24 19:24 Respiratory Rate 16 08/13/24 19:24 Blood Pressure 128/87 08/13/24 19:24 Pulse Oximetry 100 08/13/24 19:24 Oxygen Delivery Me thod Room Air 08/13/24 19:24 MDM - Abdominal Pain Medical Decision Making Patient presents here with abdominal pain he is well-appearing here his blood works normal his exam initial exam and repeat exam at discharge benign he has no signs of acute surgical abdomen he feels much improved after Zofran will prescribe Zofran for home he is follow-up with PCP and return if worsening. Medical Records I reviewed the patient's medical records. Lab Data I reviewed the patient's lab results. 08/13/24 19:33 08/13/24 19:33 Labs/Radiology: Radiology Impressions KUB X-Ray 08/13/24 18:15 IMPRESSION: No acute findings. Laboratory Results WBC 10.97 10^3/uL (3.29-11.43) 08/13/24 19: RBC 4.36 10^6/uL (3.85-5.65) 08/13/24 19: Hgb 14.50 g/dL (11.27-16.99) 08/13/24 19: Hct 41.4 % (37-53) 08/13/24 19: MCV 95.0 fl (82-101) 08/13/24 19: MCH 33.3 pg (27-33) H 08/13/24: MCHC 35.0 g/dL (30-55) 08/13/24: RDW 12.5 % (12.1-15.1) 08/13/24 19: Plt Count 348 10^3/cmm (157-399) 08/13/24: MPV 9.5 fL (7.4-10.4) 08/13/24 19: Neut % (Auto) 49.9 % 08/13/24 19: Lymph % (Auto) 38.7 % 08/13/24 19: [place] % (Auto) 8.6 % 08/13/24: Eos % (Auto) 1.5 % 08/13/24: Baso % (Auto) 0.5 % 08/13/24: Neut # (Auto) 5.48 10^3/uL (1.8-7.7) 08/13/24 19: Lymph # (Auto) 4.3 10^3/uL (0.8-4.8) 08/13/24: [place] # (Auto) 0.9 10^3/uL (0.2-0.9) 08/13/24 19: Eos # (Auto) 0.2 10^3/uL (0.0-0.8) 08/13/24: Baso # (Auto) 0.1 10^3/uL (0.0-0.1) 08/13/24 19:33 Nucleated RBC % (auto) 0 % 08/13/24 19:33 Nucleated RBCs # 0.0 /100WBC 08/13/24 19:33 Sodium 137 mmol/L (136-145) 08/13/24 19:33 Potassium 3.9 mmol/L (3.5-5.1) 08/13/24 19:33 Chloride 102 mmol/L (98-107) 08/13/24 19:33 Carbon Dioxide 22 mmol/L (22-29) 08/13/24 19:33 Anion Gap 16.9 (5-19) 08/13/24 19:33 BUN 10 mg/dL (6-20) 08/13/24 19:33 Creatinine 0.6 mg/dL (0.7-1.2) L 08/13/24 19:33 GFR Calculation 152.4 mL/min (90-130) H 08/13/24 19:33 Glucose 94 mg/dL (65-115) 08/13/24 19:33 Calculated Osmolality 283 mOsm/kg (285-295) L 08/13/24 19:33 Calcium 8.7 mg/dL (8.5-10.5) 08/13/24 19:33 Total Bilirubin 0.2 mg/dL (0.15-1.2) 08/13/24 19:33 AST 36 U/L (0-40) 08/13/24 19:33 ALT 46 U/L (0-41) H 08/13/24 19:33 Alkaline Phosphatase 85 U/L (40-130) 08/13/24 19:33 Total Protein 7.4 g/dL (6.6-8.7) 08/13/24 19:33 Albumin 4.3 g/dL (3.5-5.2) 08/13/24 19:33 Globulin 3.1 g/dL (1.3-4.6) 08/13/24 19:33 Lipase 40 U/L (13-60) 08/13/24 19:33 All radiology interpretation(s) finalized by discharge Discharge Plan Discharge Patient Disposition: Home Clinical Impression: Abdominal pain Condition: Stable Prescriptions: New ondansetron 4 mg tablet,disintegrating 4 mg PO Q6H PRN (Reason: nausea and vomiting) Qty: 14 0RF No Action losartan 50 mg tablet 50 mg PO QPM Zyloprim 100 mg tablet 100 mg PO BID paroxetine HCl 20 mg tablet 20 mg PO DAILY buspirone 10 mg tablet 10 mg PO BID metoprolol tartrate 50 mg tablet 50 mg PO DAILY omeprazole 40 mg capsule,delayed release(DR/EC) 40 mg PO DAILY Qty: 30 1RF Naprosyn 500 mg tablet 500 mg PO BID PRN (Reason: pain) Qty: 20 0RF Discharge Orders: Discharge ED (Routine); Ordered 08/13/24 Ordered By: Niecy Stephenson Referrals: Anthony Lambert MD [Primary Care Provider] - 4-7 days Discharge Diet: Advance as tolerated Discharge Activity: Resume usual activity Patient Instructions: Abdominal Pain (ED) Coding Level of Care Code ED Complaint Supervisor for Mack Leung
[2024-08-13 18:45] VITALS: BP 147/94; PULSE 74; RESP 18; O2SAT 99
[2024-08-13] MEDS: diphenoxylate/atropine Tablet 2 TAB PO (19:18)
[2024-08-13] MEDS: metoclopramide 5 mg/mL SDV 2 mL 10 MG IM (19:19)
[2024-08-13] MEDS: diphenhydrAMINE 50 mg/mL SDV 1mL IM (19:19)
[2024-08-13 19:24] VITALS: BP 128/87; PULSE 73; RESP 16; O2SAT 100
[2024-08-13 19:46] LABS: Basophils # 0.1 10^3/uL (0.0-0.1); Basophils % 0.5 %; Eosinophils # 0.2 10^3/uL (0.0-0.8); Eosinophils % 1.5 %; Hematocrit 41.4 % (37-53); Lymphocytes # 4.3 10^3/uL (0.8-4.8); Lymphocytes % 38.7 %; Mean Corpuscular Hemoglobin 33.3 pg (27-33); Mean Platelet Volume 9.5 fL (7.4-10.4); Monocytes # 0.9 10^3/uL (0.2-0.9); Monocytes % 8.6 %; Neutrophils # 5.48 10^3/uL (1.8-7.7); Neutrophils % 49.9 %; Nucleated Red Blood Cells % 0 %; Platelet Count 348 10^3/cmm (157-399); Red Blood Count 4.36 10^6/uL (3.85-5.65); Red Cell Distribution Width 12.5 % (12.1-15.1); White Blood Count 10.97 10^3/uL (3.29-11.43)
[2024-08-13 20:00] LABS: Albumin Level 4.3 g/dL (3.5-5.2); Alkaline Phosphatase 85 U/L (40-130); Blood Urea Nitrogen 10 mg/dL (6-20); Calcium 8.7 mg/dL (8.5-10.5); Carbon Dioxide 22 mmol/L (22-29); Chloride 102 mmol/L (98-107); Creatinine Clr Calc Pharmacy 177.6744; Globulin 3.1 g/dL (1.3-4.6); Glomerular Filtration Rate 152.4 mL/min (90-130); Glucose 94 mg/dL (65-115); Lipase 40 U/L (13-60); Osmolality Calculated 283 mOsm/kg (285-295); Sodium 137 mmol/L (136-145); Total Bilirubin 0.2 mg/dL (0.15-1.2); Total Protein 7.4 g/dL (6.6-8.7)
[2024-08-13 20:04] LABS: Alanine Aminotransferase 46 U/L (0-41); Anion Gap 16.9 (5-19); Aspartate Amino Transferase 36 U/L (0-40); Potassium 3.9 mmol/L (3.5-5.1)
[2024-08-13 20:56] VITALS: BP 126/97; PULSE 82; RESP 16; O2SAT 99
== END 2024-08-13 20:57 | disposition home or self-care (01) ==
PROVIDERS: Emergency Provider Emergency Medicine; PCP Family Medicine
DX: R10.9 Unspecified abdominal pain (principal)
CPT/HCPCS: 36415; 74018; 80053; 83690; 85025; 96372; 99284; J1200; J2765

== ENCOUNTER 2024-12-06 18:42 | Emergency (ER) | payer SELFPAY ==
[2024-12-06 18:51] VITALS: BP 151/88; PULSE 105; RESP 17; TEMP 38; O2SAT 99; BMI 34.3
[2024-12-06 19:29] VITALS: BP 144/102; PULSE 99; RESP 16; O2SAT 98
[2024-12-06 19:30] LABS: Basophils % 0.3 %; Eosinophils # 0.1 10^3/uL (0.0-0.8); Eosinophils % 0.8 %; Hematocrit 41.2 % (37-53); Lymphocytes # 2.7 10^3/uL (0.8-4.8); Lymphocytes % 20.1 %; Mean Corpuscular Hemoglobin 34.1 pg (27-33); Mean Corpuscular Volume 100.2 fl (82-101); Monocytes # 1.4 10^3/uL (0.2-0.9); Monocytes % 10.7 %; Neutrophils # 9.08 10^3/uL (1.8-7.7); Neutrophils % 67.2 %; Nucleated Red Blood Cells % 0 %; Platelet Count 253 10^3/cmm (157-399); Red Blood Count 4.11 10^6/uL (3.85-5.65); Red Cell Distribution Width 13.2 % (12.1-15.1)
--- NOTE | 2024-12-06 19:38 | CTR_ITS ---
PROCEDURE INFORMATION: Exam: CT Abdomen And Pelvis With Contrast Exam date and time: 12/06/2024 8:17 PM Age: 39 years old Clinical indication: Nausea and vomiting; Abdominal pain; Generalized; Prior surgery; Surgery date: 6+ months; Surgery type: Appy; Diffuse abd pain with n/v; Additional info: Diffuse abd pain, fever, n/v/d TECHNIQUE: Imaging protocol: Computed tomography of the abdomen and pelvis with contrast. Radiation optimization: All CT scans at this facility use at least one of these dose optimization techniques: automated exposure control; mA and/or kV adjustment per patient size (includes targeted exams where dose is matched to clinical indication); or iterative reconstruction. Contrast material: OMNI 350; Contrast volume: 100 ml; Contrast route: INTRAVENOUS (IV); COMPARISON: CT abdomen pelvis w con* [id number] 01/24/2024 8:39 PM RADIATION DOSE METRICS: Total DLP (mGy-cm): 699.87 FINDINGS: Lungs: The lung bases are clear. Heart: Heart size is within normal limits. There is no pericardial effusion or pericardial thickening. Liver: There is diffuse decreased attenuation of the hepatic parenchyma consistent with fatty infiltration. The liver is otherwise normal. There are no hepatic masses identified. Gallbladder and biliary ducts: The gallbladder is contracted. There is no ductal dilatation. Pancreas: The pancreas is normal. Spleen: The spleen is normal. Adrenal glands: The adrenal glands are normal. Kidneys and ureters: There is normal enhancement of the kidneys. No renal calcifications are identified. There is no hydronephrosis. Stomach and bowel: The colon is fluid-filled, typical of diarrheal illness. Questionable mild thickening of the distal and terminal ileum with subtle increased density of the mesentery may represent a nonspecific enteritis. No evidence of large or small bowel obstruction. No other evidence of bowel wall thickening. Appendix: Postoperative changes in the expected location of the appendix. Intraperitoneal space: No inflammatory changes are identified. There is no free fluid or fluid collection seen. There is no pneumoperitoneum. Vasculature: The aorta is normal in course and caliber. No significant atherosclerotic calcifications are present. Lymph nodes: No enlarged lymph nodes are identified. Urinary bladder: The bladder is unremarkable. Reproductive: The prostate is grossly unremarkable. Bones/joints: No acute osseous abnormalities are seen. Bilateral L5 spondylolysis without evidence of spondylolisthesis. Soft tissues: Tiny periumbilical hernia containing only fat. Small bilateral inguinal hernias containing only fat are present. CT/CT abdomen pelvis w con* [id number] IMPRESSION: 1. The colon is fluid-filled, typical of diarrheal illness. 2. Questionable mild thickening of the distal and terminal ileum with subtle increased density of the mesentery may represent a nonspecific enteritis. 3. Other nonemergent findings above.
[2024-12-06 19:51] LABS: Alanine Aminotransferase 33 U/L (0-41); Albumin Level 4.4 g/dL (3.5-5.2); Alkaline Phosphatase 76 U/L (40-130); Anion Gap 21.1 (5-19); Aspartate Amino Transferase 37 U/L (0-40); Blood Urea Nitrogen 5 mg/dL (6-20); Calcium 9.1 mg/dL (8.5-10.5); Carbon Dioxide 20 mmol/L (22-29); Chloride 102 mmol/L (98-107); Creatinine Clr Calc Pharmacy 146.7488; Globulin 3.5 g/dL (1.3-4.6); Glomerular Filtration Rate 126.9 mL/min (90-130); Glucose 102 mg/dL (65-115); Lipase 37 U/L (13-60); Osmolality Calculated 285 mOsm/kg (285-295); Potassium 4.1 mmol/L (3.5-5.1); Sodium 139 mmol/L (136-145); Total Bilirubin 0.5 mg/dL (0.15-1.2); Total Protein 7.9 g/dL (6.6-8.7)
[2024-12-06] MEDS: sodium chloride 0.9% 1,000 ML 999 ML IV (20:07)
[2024-12-06] MEDS: ondansetron 2 mg/ML SDV 2 mL 4 MG IVP (20:08)
[2024-12-06] MEDS: acetaminophen 500 mg Tablet 1000 MG PO (20:09)
--- NOTE | 2024-12-06 20:09 | W.ED.ABDPA2 ---
Documented by User: CHARITO Das 12/06/24 22:17 HPI - Abdominal Pain General: Chief Complaint: Abdominal Pain Stated Complaint: severe stomach pain nausea dizzy Time Seen by Provider: 12/06/24 19:29 Source: patient Mode of arrival: ambulatory Limitations: no limitations History of Present Illness: Patient is a 39-year-old male with past medical history of appendectomy who presents the emergency department complaining of diffuse abdominal pain beginning yesterday. He states the pain woke him from sleep, has been intermittent since onset and is sharp. Has not taken any medications, notes 2 episodes of vomiting and has been having diarrhea. Also notes feeling nauseous and dizzy, also stating he can feel his heart beating out of his chest, does have a history of anxiety. Reports that he has had his appendix out, still has his gallbladder. When asked where the pain is, he points to his right upper quadrant but is well to his suprapubic region and states he has been having some difficulty urinating. No blood in his urine or pain radiating towards his back. States he has not been running fevers, temp of 100.4 here in triage. Has not taken anything for pain. Does not relate the pain to eating, and also does not have any other specific exacerbating factors to note. No other symptoms reported at this time. MD elicited complaint: abdominal pain Onset (ago): day(s) Pain Consistency: intermittent Location: Diffuse Severity: severe Quality: sharp Radiation: none Migration to: no migration Exacerbating factors: nothing Relieving factors: nothing Associated Symptoms: Reports bloating, diarrhea, fever(s), nausea and vomiting; Denies change in stool character, chills, constipation, dysuria, hematochezia and hematuria Related Data Home Medications ?Medication ?Instructions ?Recorded ?Confirmed allopurinol 100 mg tablet 100 mg PO BID 08/02/23 08/02/23 (Zyloprim) buspirone 10 mg tablet 10 mg PO BID 08/02/23 08/02/23 losartan 50 mg tablet 50 mg PO QPM 08/02/23 08/02/23 metoprolol tartrate 50 mg tablet 50 mg PO DAILY 08/02/23 08/02/23 paroxetine HCl 20 mg tablet 20 mg PO DAILY 08/02/23 08/02/23 Previous Rx's ?Medication ?Instructions ?Recorded omeprazole 40 mg capsule,delayed 40 mg PO DAILY #30 caps 01/24/24 release naproxen 500 mg tablet (Naprosyn) 500 mg PO BID PRN pain #20 tabs 02/20/24 ondansetron 4 mg disintegrating 4 mg PO Q6H PRN nausea and 08/13/24 tablet vomiting #14 tabs ondansetron HCl 4 mg tablet 4 mg PO Q8H #30 tabs 12/06/24 Allergies Allergy/AdvReac Type Severity Reaction Status Date / Time cephalexin Allergy rash Verified 08/02/23 13:40 Penicillins Allergy swelling Verified 08/02/23 13:40 Review of Systems General: Reports: 10 or more systems reviewed and unremarkable except in HPI and below Const: Reports: fever(s); Denies: chills, change in appetite, change in weight or diaphoresis ENMT: Denies: throat pain or hoarseness Card: Reports: palpitations; Denies: chest pain or lightheadedness Resp: Denies: dyspnea, productive cough or wheezing GI: Reports: abdominal pain, nausea, vomiting, diarrhea and bloating; Denies: constipation, change in stool character or hematochezia : Reports: difficulty urinating; Denies: flank pain, dysuria, urinary frequency, urinary urgency or hematuria Musc: Denies: neck pain or back pain Skin/Breast: Denies: rash or new lesions Neuro: Reports: dizziness; Denies: headache(s) PFSH ED PFSH: Medical History Gout Anxiety Surgical History No pertinent past surgical history Social History Smoking and tobacco/nicotine status: never used tobacco/nicotine Alcohol intake: current Substance/Drug Use: never Physical Exam Const: COMMON NORMALS: no acute distress, average body habitus, patient oriented x3, no limitations, healthy appearing, alert and well nourished GENERAL APPEARANCE: cooperative and comfortable ORIENTATION/CONSCIOUSNESS: Yes awake HENMT: COMMON NORMALS: normocephalic, atraumatic, hearing grossly normal bilaterally, external ears normal, Normal external nose present, Normal nasal mucous membranes and turbinates present and moist oral mucous membranes HEAD & SCALP: normocephalic and atraumatic NOSE: Normal external nose present and Normal nasal mucous membranes and turbinates present EXTERNAL EAR: Yes external ears normal Eye: COMMON NORMALS: Equal, round and reactive pupils present, EOMs intact bilaterally, conjunctivae normal and normal visual medina by confrontation CONJUNCTIVA: Yes conjunctivae normal PUPIL: Yes Equal, round and reactive pupils present Neck/C-Spine: COMMON NORMALS: full ROM, supple, no meningeal signs and no JVD Resp: COMMON NORMALS: normal respiratory effort, No retractions, No use of accessory muscles and clear to auscultation bilaterally AUSCULTATION: clear to auscultation bilaterally, no crackles, no rales, no rhonchi and no wheezes Cardio: COMMON NORMALS: no JVD, regular rate, regular rhythm, S1 normal heart sound present, S2 normal heart sound present, No gallops present (Cardio), No clicks present (Cardio), No murmurs present (Cardio), No rub (Cardio) and Peripheral pulses 2+ throughout RATE: regular rate RHYTHM: regular rhythm HEART SOUNDS: S1 normal heart sound present and S2 normal heart sound present PERIPHERAL PULSES: Peripheral pulses 2+ throughout GI: COMMON NORMALS: Normal to inspection, nondistended, normoactive bowel sounds present, Soft to palpation, No hepatosplenomegaly present and no masses AUSCULTATION: Yes normoactive bowel sounds PALPATION: Yes Soft to palpation, Yes Tenderness to palpation present (GI) (Diffuse, mild), No Guarding due to palpation present (GI), No Rigid due to palpation and Yes No hepatosplenomegaly present RECTAL EXAM: Yes deferred : COMMON NORMALS: Yes no CVA tenderness BLADDER/KIDNEY EXAM: Yes no CVA tenderness Back/Pelvis: COMMON NORMALS: no CVA tenderness Extremity: COMMON NORMALS: normal to inspection and full ROM Neuro: COMMON NORMALS: patient oriented x3, moves all extremities, no focal motor deficits and no sensory deficits noted SENSORIUM/ORIENTATION: Yes alert MENINGEAL SIGNS: Yes no meningeal signs Psych: COMMON NORMALS: mental status grossly normal, cooperative and speech normal SPEECH: Yes normal speech Skin: COMMON NORMALS: no rashes or lesions noted GENERAL SKIN EXAM: no rashes or lesions noted Course Vital Signs: Vital signs: Vital Signs Temperature 100.4 F H 12/06/24 18:51 Pulse Rate 95 12/06/24 22:18 Respiratory Rate 16 12/06/24 22:18 Blood Pressure 141/92 12/06/24 22:18 Pulse Oximetry 99 12/06/24 22:18 Oxygen Delivery Me thod Room Air 12/06/24 21:00 MDM - Abdominal Pain Medical Decision Making Patient presenting with diffuse abdominal pain associated with nausea vomiting and diarrhea for the past day or so. History of appendectomy, mildly tachycardic on arrival in triage however this seemed to normalize during exam. Also had slightly elevated temperature. Was given Tylenol and started on IV fluids. Exam positive for some mild diffuse abdominal tenderness palpation, negative peritoneal signs. Mild elevation in white count on CBC, likely secondary to the vomiting and diarrhea he has been having. His metabolic panel was unremarkable, lipase unremarkable, urine unremarkable. A CT scan of the abdomen and pelvis showed nonemergent signs, potential enteritis. With his associated nausea vomiting diarrhea I do suspect a viral gastroenteritis and encouraged liquid diet will treat as nausea at home Zofran. Here through an IV was given Zofran and he notes significant increase in his symptoms. States he is ready for discharge home, stable for discharge and we discussed return precautions. Also encouraged him to follow-up with his regular doctor early next week for general reevaluation. Lab Data 12/06/24 19:14 12/06/24 19:14 Labs/Radiology: Radiology Impressions Abdomen/Pelvis CT 12/06/24 19:38 IMPRESSION: 1. The colon is fluid-filled, typical of diarrheal illness. 2. Questionable mild thickening of the distal and terminal ileum with subtle increased density of the mesentery may represent a nonspecific enteritis. 3. Other nonemergent findings above. Laboratory Results WBC 13.50 10^3/uL (3.29-11.43) H 12/06/24 19:14 RBC 4.11 10^6/uL (3.85-5.65) 12/06/24 19:14 Hgb 14.00 g/dL (11.27-16.99) 12/06/24 19:14 Hct 41.2 % (37-53) 12/06/24 19:14 MCV 100.2 fl (82-101) 12/06/24 19:14 MCH 34.1 pg (27-33) H 12/06/24 19:14 MCHC 34.0 g/dL (30-55) 12/06/24 19:14 RDW 13.2 % (12.1-15.1) 12/06/24 19:14 Plt Count 253 10^3/cmm (157-399) 12/06/24 19:14 MPV 9.0 fL (7.4-10.4) 12/06/24 19:14 Neut % (Auto) 67.2 % 12/06/24 19:14 Lymph % (Auto) 20.1 % 12/06/24 19:14 [place] % (Auto) 10.7 % 12/06/24 19:14 Eos % (Auto) 0.8 % 12/06/24 19:14 Baso % (Auto) 0.3 % 12/06/24 19:14 Neut # (Auto) 9.08 10^3/uL (1.8-7.7) H 12/06/24 19:14 Lymph # (Auto) 2.7 10^3/uL (0.8-4.8) 12/06/24 19:14 [place] # (Auto) 1.4 10^3/uL (0.2-0.9) H 12/06/24 19:14 Eos # (Auto) 0.1 10^3/uL (0.0-0.8) 12/06/24 19:14 Baso # (Auto) 0.0 10^3/uL (0.0-0.1) 12/06/24 19:14 Nucleated RBC % (auto) 0 % 12/06/24 19:14 Nucleated RBCs # 0.0 /100WBC 12/06/24 19:14 Sodium 139 mmol/L (136-145) 12/06/24 19:14 Potassium 4.1 mmol/L (3.5-5.1) 12/06/24 19:14 Chloride 102 mmol/L (98-107) 12/06/24 19:14 Carbon Dioxide 20 mmol/L (22-29) L 12/06/24 19:14 Anion Gap 21.1 (5-19) H 12/06/24 19:14 BUN 5 mg/dL (6-20) L 12/06/24 19:14 Creatinine 0.7 mg/dL (0.7-1.2) 12/06/24 19:14 GFR Calculation 126.9 mL/min (90-130) 12/06/24 19:14 Glucose 102 mg/dL (65-115) 12/06/24 19:14 Calculated Osmolality 285 mOsm/kg (285-295) 12/06/24 19:14 Calcium 9.1 mg/dL (8.5-10.5) 12/06/24 19:14 Total Bilirubin 0.5 mg/dL (0.15-1.2) 12/06/24 19:14 AST 37 U/L (0-40) 12/06/24 19:14 ALT 33 U/L (0-41) 12/06/24 19:14 Alkaline Phosphatase 76 U/L (40-130) 12/06/24 19:14 Total Protein 7.9 g/dL (6.6-8.7) 12/06/24 19:14 Albumin 4.4 g/dL (3.5-5.2) 12/06/24 19:14 Globulin 3.5 g/dL (1.3-4.6) 12/06/24 19:14 Lipase 37 U/L (13-60) 12/06/24 19:14 Urine Color Yellow (Yellow) 12/06/24 20:14 Urine Appearance Clear (CLEAR) 12/06/24 20:14 Urine pH 5.0 (5-7) 12/06/24 20:14 Ur Specific [place] 1.007 (1.005-1.030) 12/06/24 20:14 Urine Protein Negative (Negative) 12/06/24 20:14 Urine Glucose (UA) Negative (Normal) 12/06/24 20:14 Urine Ketones Negative (Negative) 12/06/24 20:14 Urine Blood Trace (Negative) A 12/06/24 20:14 Urine Nitrate Negative (Negative) 12/06/24 20:14 Urine Bilirubin Negative (Negative) 12/06/24 20:14 Urine Urobilinogen 0.2 mg/dL (Negative) 12/06/24 20:14 Ur Leukocyte Esterase Negative (Negative) 12/06/24 20:14 Urine RBC 0-2 /hpf (0-2) 12/06/24 20:14 Urine WBC 0-5 /hpf (0-5) 12/06/24 20:14 Ur Squamous Epith Cells 0-5 /hpf (0-5) 12/06/24 20:14 Amorphous Sediment Not Reportable 12/06/24 20:14 Urine Bacteria None seen /hpf (NONE) 12/06/24 20:14 Hyaline Casts 0-4 /lpf H 12/06/24 20:14 All radiology interpretation(s) finalized by discharge Discharge Plan Discharge Patient Disposition: Home Clinical Impression: Gastroenteritis Condition: Stable Prescriptions: New ondansetron HCl 4 mg tablet 4 mg PO Q8H Qty: 30 0RF No Action losartan 50 mg tablet 50 mg PO QPM Zyloprim 100 mg tablet 100 mg PO BID paroxetine HCl 20 mg tablet 20 mg PO DAILY buspirone 10 mg tablet 10 mg PO BID metoprolol tartrate 50 mg tablet 50 mg PO DAILY omeprazole 40 mg capsule,delayed release(DR/EC) 40 mg PO DAILY Qty: 30 1RF ondansetron 4 mg tablet,disintegrating 4 mg PO Q6H PRN (Reason: nausea and vomiting) Qty: 14 0RF Naprosyn 500 mg tablet 500 mg PO BID PRN (Reason: pain) Qty: 20 0RF Discharge Orders: Discharge ED (Routine); Ordered 12/06/24 Ordered By: Bernard Cooper Referrals: Anthony Lambert MD [Primary Care Provider, Family Practice] Patient Instructions: Clear Liquid Diet (ED), Gastroenteritis (ED) Activity Restrictions/Additional Instructions: Zofran for nausea. Plenty fluids. Clear liquid diet. Bowel rest, please follow-up with your regular doctor early next week for general reevaluation. Return with any high fever, persistent vomiting or diarrhea, or other concerns that you have. Print Language: Belarusian Coding Level of Care Code ED House Wirer Helper for Chg Fwd Documented by User: Wilfredo Salazar DO 12/07/24 00:17 HPI - Abdominal Pain General: Chief Complaint: Abdominal Pain Stated Complaint: severe stomach pain nausea dizzy Time Seen by Provider: 12/06/24 19:29 Related Data Home Medications ?Medication ?Instructions ?Recorded ?Confirmed allopurinol 100 mg tablet 100 mg PO BID 08/02/23 08/02/23 (Zyloprim) buspirone 10 mg tablet 10 mg PO BID 08/02/23 08/02/23 losartan 50 mg tablet 50 mg PO QPM 08/02/23 08/02/23 metoprolol tartrate 50 mg tablet 50 mg PO DAILY 08/02/23 08/02/23 paroxetine HCl 20 mg tablet 20 mg PO DAILY 08/02/23 08/02/23 Previous Rx's ?Medication ?Instructions ?Recorded omeprazole 40 mg capsule,delayed 40 mg PO DAILY #30 caps 01/24/24 release naproxen 500 mg tablet (Naprosyn) 500 mg PO BID PRN pain #20 tabs 02/20/24 ondansetron 4 mg disintegrating 4 mg PO Q6H PRN nausea and 08/13/24 tablet vomiting #14 tabs ondansetron HCl 4 mg tablet 4 mg PO Q8H #30 tabs 12/06/24 Allergies Allergy/AdvReac Type Severity Reaction Status Date / Time cephalexin Allergy rash Verified 08/02/23 13:40 Penicillins Allergy swelling Verified 08/02/23 13:40 [facility] ED PFSH: Medical History Gout Anxiety Surgical History No pertinent past surgical history Social History Smoking and tobacco/nicotine status: never used tobacco/nicotine Alcohol intake: current Substance/Drug Use: never Course Vital Signs: Vital signs: Vital Signs Temperature 100.4 F H 12/06/24 18:51 Pulse Rate 95 12/06/24 22:18 Respiratory Rate 16 12/06/24 22:18 Blood Pressure 141/92 12/06/24 22:18 Pulse Oximetry 99 12/06/24 22:18 Oxygen Delivery Me thod Room Air 12/06/24 21:00 MDM - Abdominal Pain Medical Decision Making Patient presenting with diffuse abdominal pain associated with nausea vomiting and diarrhea for the past day or so. History of appendectomy, mildly tachycardic on arrival in triage however this seemed to normalize during exam. Also had slightly elevated temperature. Was given Tylenol and started on IV fluids. Exam positive for some mild diffuse abdominal tenderness palpation, negative peritoneal signs. Mild elevation in white count on CBC, likely secondary to the vomiting and diarrhea he has been having. His metabolic panel was unremarkable, lipase unremarkable, urine unremarkable. A CT scan of the abdomen and pelvis showed nonemergent signs, potential enteritis. With his associated nausea vomiting diarrhea I do suspect a viral gastroenteritis and encouraged liquid diet will treat as nausea at home Zofran. Here through an IV was given Zofran and he notes significant increase in his symptoms. States he is ready for discharge home, stable for discharge and we discussed return precautions. Also encouraged him to follow-up with his regular doctor early next week for general reevaluation. This patient was originally seen by Mr. Allison PA-C.? I agree with his history, evaluation, and treatment. Lab Data 12/06/24 19:14 12/06/24 19:14 Labs/Radiology: Radiology Impressions Abdomen/Pelvis CT 12/06/24 19:38 IMPRESSION: 1. The colon is fluid-filled, typical of diarrheal illness. 2. Questionable mild thickening of the distal and terminal ileum with subtle increased density of the mesentery may represent a nonspecific enteritis. 3. Other nonemergent findings above. Laboratory Results WBC 13.50 10^3/uL (3.29-11.43) H 12/06/24 19:14 RBC 4.11 10^6/uL (3.85-5.65) 12/06/24 19:14 Hgb 14.00 g/dL (11.27-16.99) 12/06/24 19:14 Hct 41.2 % (37-53) 12/06/24 19:14 MCV 100.2 fl (82-101) 12/06/24 19:14 MCH 34.1 pg (27-33) H 12/06/24 19:14 MCHC 34.0 g/dL (30-55) 12/06/24 19:14 RDW 13.2 % (12.1-15.1) 12/06/24 19:14 Plt Count 253 10^3/cmm (157-399) 12/06/24 19:14 MPV 9.0 fL (7.4-10.4) 12/06/24 19:14 Neut % (Auto) 67.2 % 12/06/24 19:14 Lymph % (Auto) 20.1 % 12/06/24 19:14 [place] % (Auto) 10.7 % 12/06/24 19:14 Eos % (Auto) 0.8 % 12/06/24 19:14 Baso % (Auto) 0.3 % 12/06/24 19:14 Neut # (Auto) 9.08 10^3/uL (1.8-7.7) H 12/06/24 19:14 Lymph # (Auto) 2.7 10^3/uL (0.8-4.8) 12/06/24 19:14 [place] # (Auto) 1.4 10^3/uL (0.2-0.9) H 12/06/24 19:14 Eos # (Auto) 0.1 10^3/uL (0.0-0.8) 12/06/24 19:14 Baso # (Auto) 0.0 10^3/uL (0.0-0.1) 12/06/24 19:14 Nucleated RBC % (auto) 0 % 12/06/24 19:14 Nucleated RBCs # 0.0 /100WBC 12/06/24 19:14 Sodium 139 mmol/L (136-145) 12/06/24 19:14 Potassium 4.1 mmol/L (3.5-5.1) 12/06/24 19:14 Chloride 102 mmol/L (98-107) 12/06/24 19:14 Carbon Dioxide 20 mmol/L (22-29) L 12/06/24 19:14 Anion Gap 21.1 (5-19) H 12/06/24 19:14 BUN 5 mg/dL (6-20) L 12/06/24 19:14 Creatinine 0.7 mg/dL (0.7-1.2) 12/06/24 19:14 GFR Calculation 126.9 mL/min (90-130) 12/06/24 19:14 Glucose 102 mg/dL (65-115) 12/06/24 19:14 Calculated Osmolality 285 mOsm/kg (285-295) 12/06/24 19:14 Calcium 9.1 mg/dL (8.5-10.5) 12/06/24 19:14 Total Bilirubin 0.5 mg/dL (0.15-1.2) 12/06/24 19:14 AST 37 U/L (0-40) 12/06/24 19:14 ALT 33 U/L (0-41) 12/06/24 19:14 Alkaline Phosphatase 76 U/L (40-130) 12/06/24 19:14 Total Protein 7.9 g/dL (6.6-8.7) 12/06/24 19:14 Albumin 4.4 g/dL (3.5-5.2) 12/06/24 19:14 Globulin 3.5 g/dL (1.3-4.6) 12/06/24 19:14 Lipase 37 U/L (13-60) 12/06/24 19:14 Urine Color Yellow (Yellow) 12/06/24 20:14 Urine Appearance Clear (CLEAR) 12/06/24 20:14 Urine pH 5.0 (5-7) 12/06/24 20:14 Ur Specific [place] 1.007 (1.005-1.030) 12/06/24 20:14 Urine Protein Negative (Negative) 12/06/24 20:14 Urine Glucose (UA) Negative (Normal) 12/06/24 20:14 Urine Ketones Negative (Negative) 12/06/24 20:14 Urine Blood Trace (Negative) A 12/06/24 20:14 Urine Nitrate Negative (Negative) 12/06/24 20:14 Urine Bilirubin Negative (Negative) 12/06/24 20:14 Urine Urobilinogen 0.2 mg/dL (Negative) 12/06/24 20:14 Ur Leukocyte Esterase Negative (Negative) 12/06/24 20:14 Urine RBC 0-2 /hpf (0-2) 12/06/24 20:14 Urine WBC 0-5 /hpf (0-5) 12/06/24 20:14 Ur Squamous Epith Cells 0-5 /hpf (0-5) 12/06/24 20:14 Amorphous Sediment Not Reportable 12/06/24 20:14 Urine Bacteria None seen /hpf (NONE) 12/06/24 20:14 Hyaline Casts 0-4 /lpf H 12/06/24 20:14 Discharge Plan Discharge Patient Disposition: Home Clinical Impression: Gastroenteritis Condition: Stable Prescriptions: New ondansetron HCl 4 mg tablet 4 mg PO Q8H Qty: 30 0RF No Action losartan 50 mg tablet 50 mg PO QPM Zyloprim 100 mg tablet 100 mg PO BID paroxetine HCl 20 mg tablet 20 mg PO DAILY buspirone 10 mg tablet 10 mg PO BID metoprolol tartrate 50 mg tablet 50 mg PO DAILY omeprazole 40 mg capsule,delayed release(DR/EC) 40 mg PO DAILY Qty: 30 1RF ondansetron 4 mg tablet,disintegrating 4 mg PO Q6H PRN (Reason: nausea and vomiting) Qty: 14 0RF Naprosyn 500 mg tablet 500 mg PO BID PRN (Reason: pain) Qty: 20 0RF Discharge Orders: Discharge ED (Routine); Ordered 12/06/24 Ordered By: Bernard Cooper Referrals: Anthony Lambert MD [Primary Care Provider, Family Practice] Patient Instructions: Clear Liquid Diet (ED), Gastroenteritis (ED) Activity Restrictions/Additional Instructions: Zofran for nausea. Plenty fluids. Clear liquid diet. Bowel rest, please follow-up with your regular doctor early next week for general reevaluation. Return with any high fever, persistent vomiting or diarrhea, or other concerns that you have. Print Language: Belarusian Coding Level of Care Code ED House Wirer Helper for Mack Leung
[2024-12-06 20:19] LABS: Bilirubin Urine Negative (Negative); Blood Urine Trace (Negative); Glucose Urine UA Negative (Normal); Ketones Urine Negative (Negative); Leukocyte Esterase Urine Negative (Negative); Nitrate Urine Negative (Negative); Protein Urine Negative (Negative); Specific Gravity, Urine 1.007 (1.005-1.030); Urine Appearance Clear (CLEAR); Urine Color Yellow (Yellow); Urobilinogen Urine 0.2 mg/dL (Negative)
[2024-12-06] MEDS: iohexol 350 mg/mL 500 mL Btl (per mL) IV (20:22)
[2024-12-06 20:25] LABS: Add Urine Microscopic? YES; Bacteria Urine None Seen /hpf; Hyaline Casts Urine 0-4 /lpf; RBC Urine 0-2 /hpf (0-2); Squamous Epithelial Cell Urine 0-5 /hpf (0-5); WBC Urine 0-5 /hpf (0-5)
[2024-12-06 21:00] VITALS: BP 143/83; PULSE 88; RESP 16; O2SAT 99
[2024-12-06 22:18] VITALS: BP 141/92; PULSE 95; RESP 16; O2SAT 99
== END 2024-12-06 22:20 | disposition home or self-care (01) ==
PROVIDERS: Emergency Medicine; Emergency Provider Physician Assistant; PCP Family Medicine
DX: K52.9 Noninfective gastroenteritis and colitis, unspecified (principal)
CPT/HCPCS: 36415; 74177; 80053; 81001; 83690; 85025; 96374; 99285; J2405; J7030; J9999

== ENCOUNTER 2025-04-23 07:28 | Emergency (ER) | payer BC, MEDICAID, SELFPAY ==
--- NOTE | 2025-04-23 07:30 | ECG_ITS ---
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: : 1985 Requested By: Pradeep Recio Order Number: [id number] Vidhi MD: SUNNY GUTIERREZ Measurements Intervals [place] Rate: 63 P: 72 ID: [id number] QRS: 33 QRSD: 104 T: 20 QT: 386 QTc: 395 Interpretive Statements SINUS RHYTHM POSSIBLE ANTERIOR MYOCARDIAL INFARCTION , PROBABLY OLD [30 ms Q WAVE IN V3/V4, OR R < 0.2 mV IN V4] Compared to ECG 08/02/2023 13:18:13 Myocardial infarct finding now present Sinus tachycardia no longer present ST (T wave) deviation no longer present Electronically Signed On 04-25-2025 21:37:18 CDT by SUNNY GUTIERREZ [email or web address]
--- NOTE | 2025-04-23 07:34 | W.ED.GENADLT ---
HPI - General Adult General: Chief complaint: Extremity Problem,Nontraumatic Stated complaint: left arm tingle Time Seen by Provider: 04/23/25 07:29 History of Present Illness: 39-year-old male presents emergency room with initial complaint of left arm tingling who presents here by EMS he states he has had the symptoms for the last 3 months and is getting worse and is only in his left hand from about the elbow distally and affects the 3rd, 4th and 5th fingers. Does not affect his index finger or his thumb. He is also complains of some numbness on the bottom of his left foot but not anywhere else on left leg. No difficulty with speech swallowing gait or balance. Patient is not diabetic. He denies chest pain or abdominal pain no headache no recent head trauma. Associated symptoms: Deny chest pain, dyspnea or rash Related Data Home Medications ?Medication ?Instructions ?Recorded ?Confirmed allopurinol 100 mg tablet 100 mg PO BID 08/02/23 08/02/23 (Zyloprim) buspirone 10 mg tablet 10 mg PO BID 08/02/23 08/02/23 losartan 50 mg tablet 50 mg PO QPM 08/02/23 08/02/23 metoprolol tartrate 50 mg tablet 50 mg PO DAILY 08/02/23 08/02/23 paroxetine HCl 20 mg tablet 20 mg PO DAILY 08/02/23 08/02/23 Previous Rx's ?Medication ?Instructions ?Recorded omeprazole 40 mg capsule,delayed 40 mg PO DAILY #30 caps 01/24/24 release naproxen 500 mg tablet (Naprosyn) 500 mg PO BID PRN pain #20 tabs 02/20/24 ondansetron 4 mg disintegrating 4 mg PO Q6H PRN nausea and 08/13/24 tablet vomiting #14 tabs ondansetron HCl 4 mg tablet 4 mg PO Q8H #30 tabs 12/06/24 methylprednisolone 4 mg tablets in See Rx Instructions PO .COMPLEX 04/23/25 a dose pack (Medrol (Carlos)) #21 ea Allergies Allergy/AdvReac Type Severity Reaction Status Date / Time cephalexin Allergy rash Verified 08/02/23 13:40 Penicillins Allergy swelling Verified 08/02/23 13:40 Review of Systems Const: Denies: fever(s) or chills Card: Denies: chest pain Resp: Denies: dyspnea GI: Denies: abdominal pain : Denies: dysuria, urinary frequency or urinary urgency Musc: Denies: neck pain or back pain Skin/Breast: Denies: rash PFSH ED PFSH: Medical History Gout Anxiety Surgical History No pertinent past surgical history Social History Smoking and tobacco/nicotine status: never used tobacco/nicotine Alcohol intake: current Substance/Drug Use: never Physical Exam Const: COMMON NORMALS: no acute distress GENERAL APPEARANCE: cooperative and comfortable ORIENTATION/CONSCIOUSNESS: Yes awake, Yes oriented to person, Yes oriented to place and Yes oriented to time HENMT: COMMON NORMALS: normocephalic, atraumatic and hearing grossly normal bilaterally HEAD & SCALP: normocephalic and atraumatic Resp: COMMON NORMALS: normal respiratory effort, No retractions, No use of accessory muscles and clear to auscultation bilaterally AUSCULTATION: clear to auscultation bilaterally Cardio: COMMON NORMALS: regular rate, regular rhythm and No murmurs present (Cardio) RATE: regular rate RHYTHM: regular rhythm GI: COMMON NORMALS: Soft to palpation and No hepatosplenomegaly present AUSCULTATION: Yes normoactive bowel sounds PALPATION: Yes Soft to palpation, No Tenderness to palpation present (GI), No Guarding due to palpation present (GI) and Yes No hepatosplenomegaly present Extremity: COMMON NORMALS: normal to inspection, capillary refill normal, no clubbing, cyanosis or edema, no calf tenderness and no pedal edema OTHER: Numbness and ting in the ulnar nerve distribution of the left hand. [place] strength normal no limb ataxia. Radial and ulnar pulses normal Neuro: SENSORIUM/ORIENTATION: Yes oriented to person, Yes oriented to place and Yes oriented to time OTHER: No focal neurologic deficits Skin: COMMON NORMALS: no rashes or lesions noted GENERAL SKIN EXAM: no rashes or lesions noted Course Vital Signs: Vital signs: Vital Signs Temperature 98.6 F 04/23/25 07:36 Pulse Rate 61 04/23/25 09:02 Respiratory Rate 17 04/23/25 07:36 Blood Pressure 138/87 04/23/25 09:02 Pulse Oximetry 99 04/23/25 09:02 Oxygen Delivery Me thod Room Air 04/23/25 07:36 MDM - General Adult Medical Decision Making Patient has numbness on the sole of the left foot at times he says it is already resolved this been going on for several months. He has a ulnar nerve distribution numbness in the left hand. No other significant findings no other neurologic deficits on exam will discharge patient home encouraged him to follow-up with primary care Medical Records I reviewed the patient's medical records. Lab Data I reviewed the patient's lab results. 04/23/25 07:46 04/23/25 07:46 Laboratory Results WBC 9.34 10^3/uL (3.29-11.43) 04/23/25 07:46 RBC 4.22 10^6/uL (3.85-5.65) 04/23/25 07:46 Hgb 14.20 g/dL (11.27-16.99) 04/23/25 07:46 Hct 41.6 % (37-53) 04/23/25 07:46 MCV 98.6 fl (82-101) 04/23/25 07:46 MCH 33.6 pg (27-33) H 04/23/25 07:46 MCHC 34.1 g/dL (30-55) 04/23/25 07:46 RDW 12.9 % (12.1-15.1) 04/23/25 07:46 Plt Count 272 10^3/cmm (157-399) 04/23/25 07:46 MPV 9.0 fL (7.4-10.4) 04/23/25 07:46 Neut % (Auto) 66.6 % 04/23/25 07:46 Lymph % (Auto) 22.5 % 04/23/25 07:46 Motley % (Auto) 7.5 % 04/23/25 07:46 Eos % (Auto) 1.5 % 04/23/25 07:46 Baso % (Auto) 0.5 % 04/23/25 07:46 Neut # (Auto) 6.22 10^3/uL (1.8-7.7) 04/23/25 07:46 Lymph # (Auto) 2.1 10^3/uL (0.8-4.8) 04/23/25 07:46 Motley # (Auto) 0.7 10^3/uL (0.2-0.9) 04/23/25 07:46 Eos # (Auto) 0.1 10^3/uL (0.0-0.8) 04/23/25 07:46 Baso # (Auto) 0.1 10^3/uL (0.0-0.1) 04/23/25 07:46 Nucleated RBC % (auto) 0 % 04/23/25 07:46 Nucleated RBCs # 0.0 /100WBC 04/23/25 07:46 Sodium 137 mmol/L (136-145) 04/23/25 07:46 Potassium 4.8 mmol/L (3.5-5.1) 04/23/25 07:46 Chloride 99 mmol/L (98-107) 04/23/25 07:46 Carbon Dioxide 25 mmol/L (22-29) 04/23/25 07:46 Anion Gap 17.8 (5-19) 04/23/25 07:46 BUN 9 mg/dL (6-20) 04/23/25 07:46 Creatinine 0.7 mg/dL (0.7-1.2) 04/23/25 07:46 GFR Calculation 126.9 mL/min (90-130) 04/23/25 07:46 Glucose 99 mg/dL (65-115) 04/23/25 07:46 POC Glucose 95 mg/dL (70-110) 04/23/25 07:43 Calculated Osmolality 283 mOsm/kg (285-295) L 04/23/25 07:46 Calcium 8.8 mg/dL (8.5-10.5) 04/23/25 07:46 Total Bilirubin 0.5 mg/dL (0.15-1.2) 04/23/25 07:46 AST 40 U/L (0-40) 04/23/25 07:46 ALT 28 U/L (0-41) 04/23/25 07:46 Alkaline Phosphatase 69 U/L (40-130) 04/23/25 07:46 Total Protein 7.4 g/dL (6.6-8.7) 04/23/25 07:46 Albumin 4.3 g/dL (3.5-5.2) 04/23/25 07:46 Globulin 3.1 g/dL (1.3-4.6) 04/23/25 07:46 All radiology interpretation(s) finalized by discharge EKG Data EKG 1: Interpretation: 04/23/2025 7:30 AM sinus rhythm rate of 63 CO interval 174 QTc [address]. No acute ST changes noted. Compared to EKG 08/02/2023 Discharge Plan Discharge Patient Disposition: Home Clinical Impression: Ulnar nerve neuropathy Condition: Stable Prescriptions: New methylprednisolone [Medrol (Carlos)] 4 mg tablets,dose pack See Rx Instructions .ROUTE .COMPLEX Qty: 21 0RF Rx Instructions: orally per package directions No Action losartan 50 mg tablet 50 mg PO QPM Zyloprim 100 mg tablet 100 mg PO BID paroxetine HCl 20 mg tablet 20 mg PO DAILY buspirone 10 mg tablet 10 mg PO BID metoprolol tartrate 50 mg tablet 50 mg PO DAILY omeprazole 40 mg capsule,delayed release(DR/EC) 40 mg PO DAILY Qty: 30 1RF ondansetron 4 mg tablet,disintegrating 4 mg PO Q6H PRN (Reason: nausea and vomiting) Qty: 14 0RF Naprosyn 500 mg tablet 500 mg PO BID PRN (Reason: pain) Qty: 20 0RF ondansetron HCl 4 mg tablet 4 mg PO Q8H Qty: 30 0RF Discharge Orders: Discharge ED (Routine); Ordered 04/23/25 Ordered By: Pradeep Montalvo Referrals: Anthony Lambert MD [Primary Care Provider, [facility]] Discharge Diet: Usual diet Discharge Activity: Resume usual activity Patient Instructions: Opioid Safety, Pain Management, Patient Portal & Yvette Instructions Activity Restrictions/Additional Instructions: Thank you [facility] choosing [facility] for your healthcare needs today. It is very important that you follow up as instructed or that you return to the Emergency Department should you have concerns or if your condition changes or worsens in any way. Emergency department visits are focused on emergent conditions, in some cases you may require further evaluation on an outpatient basis. You were seen in the emergency room with tingling in your left hand. On exam pattern history is consistent with ulnar neuropathy. You also mentioned having some tingling in your left foot at times. Examination of the foot while you were here there was no abnormalities in your sensation tested normal. We did give you a short course of prednisone. You should follow-up with your primary care doctor regarding the ulnar neuropathy. (Please note that included in your discharge packet is information concerning opioid safety and pain management. This information is given to all patients were discharged from the ER regardless of their discharge diagnosis or the medicines they usually take or are prescribed.) Print Language: Citizen [place] Coding Level of Care Code ED Facility Designer for Mack Leung
[2025-04-23 07:36] VITALS: BP 156/96; PULSE 72; RESP 17; TEMP 37; O2SAT 100; BMI 34.3
[2025-04-23 07:55] LABS: Hematocrit 41.6 % (37-53); Hemoglobin 14.20 g/dL (11.27-16.99); Mean Corpuscular HGB Conc 34.1 g/dL (30-55); Mean Corpuscular Hemoglobin 33.6 pg (27-33); Mean Corpuscular Volume 98.6 fl (82-101); Nucleated Red Blood Cells % 0 %; Platelet Count 272 10^3/cmm (157-399); Red Blood Count 4.22 10^6/uL (3.85-5.65); White Blood Count 9.34 10^3/uL (3.29-11.43)
[2025-04-23 08:12] LABS: Alanine Aminotransferase 28 U/L (0-41); Albumin Level 4.3 g/dL (3.5-5.2); Alkaline Phosphatase 69 U/L (40-130); Anion Gap 17.8 (5-19); Aspartate Amino Transferase 40 U/L (0-40); Blood Urea Nitrogen 9 mg/dL (6-20); Calcium 8.8 mg/dL (8.5-10.5); Carbon Dioxide 25 mmol/L (22-29); Chloride 99 mmol/L (98-107); Creatinine Clr Calc Pharmacy 146.7488; Globulin 3.1 g/dL (1.3-4.6); Glucose 99 mg/dL (65-115); Osmolality Calculated 283 mOsm/kg (285-295); Potassium 4.8 mmol/L (3.5-5.1); Sodium 137 mmol/L (136-145); Total Protein 7.4 g/dL (6.6-8.7)
[2025-04-23 09:02] VITALS: BP 138/87; PULSE 61; O2SAT 99
== END 2025-04-23 09:04 | disposition home or self-care (01) ==
PROVIDERS: Emergency Provider Family Medicine; PCP Family Medicine
DX: G56.22 Lesion of ulnar nerve, left upper limb (principal)
CPT/HCPCS: 36415; 36416; 80053; 82962; 85025; 93005; 99284

== ENCOUNTER 2025-05-06 10:58 | Outpatient (CLI) | payer BC, MEDICAID, SELFPAY ==
--- NOTE | 2025-05-06 11:31 | XR_ITS ---
WS: [id number] Left knee, 3 views, 05/06/2025 Clinical Data: LEFT KNEE PAIN Comparison: None. Findings: No fractures or dislocations are seen. The joint spaces are normal. The patella is intact. The soft tissues are unremarkable. XR/XR knee LT 3V* [id number] Impression: Negative left knee.
== END 2025-05-06 10:59 | disposition home or self-care (01) ==
PROVIDERS: PCP Family Medicine; Visit Provider Family Medicine
DX: M25.562 Pain in left knee (principal)
CPT/HCPCS: 73562

== ENCOUNTER 2025-05-16 07:29 | Emergency (ER) | payer BC, MEDICAID, SELFPAY ==
--- OUTSIDE RECORDS SUMMARY | 2025-05-16 07:33 | XMS_ITS | Data Portability ---
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 Encouraged to make appointment with PCP when leaving today. Patient verbalized understanding and agreement with plan of care. Will call with questions or concerns. [email or web address] Not available 12/06/2022 11:00:59 Plan of Treatment Reminders Order Date Submit Date Provider Last Modified By Organization Details Last Modified Time Details Appointments None recorded. Lab None recorded. Referral None recorded. Procedures None recorded. Surgeries None recorded. Imaging None recorded. Medication Orders colchicine 0.6 mg tablet 2022 023 [facility] [address], [address], [place], [address], 3 12:47:05 metoprolol succinate ER 50 mg tablet,exte nded release 24 hr 2022 023 [facility] [address], [address], [place], [address], 3 11:33:48 losartan 50 mg tablet 2022 023 [facility] [address], [address], [place], [address], 3 11:33:49 fluoxetine 40 mg capsule 2022 023 [facility] [address], [address], [place], [address], 3 11:33:49 metoprolol succinate ER 50 mg tablet,exte nded release 24 hr 2022 023 [facility] [address], [address], [place], [address], 3 14:11:17 losartan 50 mg tablet 2022 023 [facility] [address], [address], [place], [address], 3 14:11:15 hydroxyzine HCl 25 mg tablet 2022 023 [facility] [address], [address], [place], [address], 3 14:11:16 fluoxetine 40 mg capsule 2022 023 [facility] [address], [address], [place], [address], 3 14:11:18 metoprolol succinate ER 50 mg tablet,exte nded release 24 hr 2022 023 [facility] [address], [address], [place], [address], 3 10:18:52 fluoxetine 20 mg capsule 2022 023 [facility] [address], [address], [place], [address], 3 11:15:42 Patient TargetsNo targets recorded. Patient Instructions Encounter Date Encounter Id Patient Instructions Last Modified By Organization Details Last Modified Time 12/06/2022 [id number] Discussed taking BP at home. Patient reports he does not have a BP cuff at home. Encouraged to get one to monitor at home. Discussed importance of making a follow up patient with PCP to continue medications. [email or web address] Not available 12/06/2022 10:06:10 12/28/2022 [id number] Call or return for questions or concerns. Not available 12/28/2022 14:10:02 02/07/2023 [id number] Call or return for questions or concerns. Patient reports he stopped taking his blood pressure medications because he felt better. Cautioned him that he felt better because he was taking his medications as prescribed. Encouraged him to start taking them again. Not available 02/07/2023 11:32:14 Reason for Referral None Reported. Problems Name Problem SNOMED Code Status Onset Date Resolution Date Notes Provider Name and Address Organization Details Recorded Time Harmful pattern of use of alcohol 46650095 Active 2022 DARRELL miramontes [facility] 13:19:18 Essential hypertension 67094407 Active 2022 MEÑO STAPLES [address], [address], [facility] 3 11:32:37 Mixed anxiety and depressive disorder 804151467 Active 2022 MEÑO STAPLES [address], [address], [facility] 3 11:32:40 Problem Notes None recorded. Procedures Surgical History Date Name Laterality Status Provider Name and Address Organization Details Recorded Time Appendectomy completed DARRELL BRICENO [facility] 12/27/2022 13:18:34 Imaging Results None recorded. Procedure Notes None recorded. Medical Equipment None Reported. Allergies Allergen ID Allergen Name Allergen Category Reaction Reaction Severity Criticality Documentation Date Start Date Code Code System Note Provider Name and Address Organization Details Recorded Time 3761 lisinopri l medicatio n Not available Not available Not available 12/27/2022 04435 RxNorm Cough DARRELL BRICENO kulwinder [facility] 3 13:15:47 3762 cephalexi n medicatio n Not available Not available Not available 12/27/2022 2231 RxNorm DARRELL miramontes [facility] 3 13:16:02 3763 Product containin g penicilli n (product) medicatio n anaphylax is severe Not available 12/27/2022 87493 8001 [facility] 13:16:12 99654 penicilli n V potassium medicatio n anaphylax is Not available Not available 02/24/202335466 5 RxNorm React ion: Anaph ylaxi s; Comme nt: Recor ded 09/06 9:31A M by Willie mcallister, CMT, Offic e Visit ; Promo brent; Clara washburn ce: *; Reaso n: Drug aller gy; ; Not Available [facility] 3 02:27:08 Medications Name Sig Start Date Stop Date Status Note LastModified by Organization Details LastModified Time losartan 50 mg tablet Take 1 tablet every day by oral route for 90 days. 2022 active Not Available Not Available Not Avai lable fluoxetin e 40 mg capsule Take 1 capsule every day by oral route for 90 days. 2022 active Not Available Not Available Not Avai lable metoprolo l succinate ER 50 mg tablet,ex tended release 24 hr Take 1 tablet every day by oral route for 90 days. 2022 active Not Available Not Available Not Avai lable allopurin ol 100 mg tablet Take 1 tablet every day by oral route for 90 days. 2022 active Not Available Not Available Not Avai lable hydroxyzi ne HCl 25 mg tablet Take 1 tablet every 6 hours by oral route as needed for 30 days. 2022 active Not Available Not Available Not Avai lable colchicin e 0.6 mg tablet 2 tabs po x 1 dose, then 1 tab po x 1 dose 1 hour later 2022 active Not Available Not Available Not Avai lable fluoxetin e 20 mg capsule Take 1 capsule every day by oral route for 30 days. 02/07 completed Not Available Not Available Not Available hydroxyzi ne HCl every six hours PRN/DELTA C & BREAKTHR OUGH ANXIETY 2022 active Recorded 09/06/19 23 10:00AM by JULY Field, Office Visit; Refill Quantity : 0; Not Available Not Available Not Available Prozac daily 2022 active Recorded 09/06/19 23 10:01AM by JULY Field, Office Visit; Refill Quantity : 30; Capsule; Not Available Not Available Not Available metoprolo l succinate daily 2022 active Recorded 09/06/19 23 10:03AM by JULY Field, Office Visit; Refill Quantity : 30; Tablet; Not Available Not Available Not Available Vitals Date Recorded Body height Body mass index (BMI) Body weight Oxygen saturation Oxygen saturation in Arterial blood by Pulse oximetry Heart rate Respiratory rate Body temperature Systolic And Diastolic Provider Name and Address Organization Details Last Updated DateTime 3 162.56 cm 35.7 kg/m2 01123.2 1 g 99 % 99 % 82 /min 20 /min 97.9 [degF] 142/98 mm[Hg] JOJO PHILLIPS [facility] 3 09:43:46 Date Recorded Body height Body mass index (BMI) Body weight Oxygen saturation Oxygen saturation in Arterial blood by Pulse oximetry Heart rate Respiratory rate Body temperature Systolic And Diastolic Systolic And Diastolic Provider Name and Address Organization Details Last Updated DateTime 3 167.64 cm 32.9 kg/m2 82693.8 4 g 98 % 98 % 92 /min 24 /min 98 [degF] 160/104 mm[Hg] 164/114 mm[Hg] DARRELL BRICENO [facility] 3 13:58:37 Date Recorded Body height Body mass index (BMI) Body weight Oxygen saturation Oxygen saturation in Arterial blood by Pulse oximetry Heart rate Body temperature Systolic And Diastolic Provider Name and Address Organization Details Last Updated DateTime 3 167.64 cm 33.2 kg/m2 79013.0 3 g 98 % 98 % 94 /min 98.3 [degF] 184/110 mm[Hg] JANAK CHERRY [facility] 3 11:14:48 Date Recorded Body height Body mass index (BMI) Body weight Oxygen saturation Oxygen saturation in Arterial blood by Pulse oximetry Heart rate Respiratory rate Body temperature Systolic And Diastolic Provider Name and Address Organization Details Last Updated DateTime 3 167.64 cm 32.3 kg/m2 78192.4 7 g 99 % 99 % 101 /min 20 /min 97.1 [degF] 130/80 mm[Hg] Carrie Staley [facility] 3 12:17:15 Social History Question Answer Notes LastModified by [employer] Details LastModified Time Tobacco Smoking Status Never Smoker [facility] 12/27/2022 13:18:19 Have You Ever Been Counseled For Unhealthy Alcohol Use? Yes Information not available 12/27/2022 How Many Days In The Past Year Have You Consumed 5 Or More Drinks? 364 [email or web address] Information not available 12/28/2022 Sex: Unknown Functional Status Question Answer Note LastModified by [employer] Details LastModified Time How many times per week do you consume alcohol? 5-7 times per week [email or web address] Information not available 12/27/2022 Do you or have you ever used any other forms of tobacco or nicotine? Yes [email or web address] Information not available 12/27/2022 What is your level of alcohol consumption? Heavy 12 pack of beer per day. [email or web address] Information not available 12/28/2022 Do you or have you ever used smokeless tobacco? Currently chews tobacco [email or web address] Information not available 12/27/2022 Mental Status None recorded. Family History Nothing Reported Notes:Mother; Madie. No Bipola r or psych., Father; Unknown, 1 Bro, 1 Sis; No bipolar., None: Denied Medical History Condition Response Anxiety Disorder Y Hypertension Y Immunizations Vaccine Type Date Status Note Provider Nam e and Address Organization Details Recorded Time MMR 0 rosamaria STAPLES, [address], [address], [facility] 12/28/2022 14:05:43 DTP 0 rosamaria STAPLES, [address], [address], [facility] 12/28/2022 14:05:43 DTP 0 rosamaria STAPLES, [address], [address], [facility] 12/28/2022 14:05:43 DTP 1 rosamaria STAPLES, [address], [address], [facility] 12/28/2022 14:05:43 Hep B, unspecified formulation 9 rosamaria STAPLES, [address], [address], [facility] 12/28/2022 14:05:43 Hep B, unspecified formulation 8 rosamaria STAPLES, [address], [address], [facility] 12/28/2022 14:05:43 Hep B, unspecified formulation 8 rosamaria STAPLES, [address], [address], [facility] 12/28/2022 14:05:43 OPV, trivalent 0 rosamaria STAPLES, [facility] [address] [place], [address], [facility] 12/28/2022 14:05:43 OPV, trivalent 1 completed MEÑO BEL, [address], [address], [facility] 12/28/2022 14:05:43 OPV, trivalent 1 completed MEÑO BEL, [address], [address], [facility] 12/28/2022 14:05:43 Td (adult), 2 Lf tetanus toxoid, preservative free, adsorbed 2 completed MEÑO STAPLES, [address], [address], [facility] 12/28/2022 14:05:43 tetanus toxoid, unspecified formulation 2 completed Not Available [facility] 02/24/2023 02:24:53 Past Encounters Encounter ID Performer Location Encounter Start Date Encounter Closed Date Diagnosis/Indication Diagnosis SNOMED-CT Code Diagnosis ICD10 Code Diagnosis IMO Codes Diagnosis Note [id number] MANUEL VASQUEZ [facility] ([facility]) [address] [place] [address] 12/06/2022 09:21:21 12/06/2022 13:54:07 Depressive disorder 12438026 F32.A Essential hypertension 29595111 I10 [id number] MEÑO STAPLES [facility] ([facility]) [address] [place] [address] 12/28/2022 13:47:52 12/28/2022 14:20:43 Mixed anxiety and depressive disorder 167391855 F41.8 Essential hypertension 01203731 I10 [id number] MEÑO STAPLES [facility] ([facility]) [address] [place] [address] 02/07/2023 10:19:36 02/07/2023 12:12:58 Mixed anxiety and depressive disorder 152460970 F41.8 Essential hypertension 70666548 I10 Patient stopped his medication s. He was counseled to restart them. Monitor blood pressure at home. [id number] GENTRY SAWYER [employer] [facility] [address] [place] [address] 03/03/2023 12:04:10 03/03/2023 13:36:08 Acute gout 209500821 M10.9 Health Concerns Section Related Observation LastModified by Organization Detai ls LastModified Time None Recorded Concern Status LastModified by Organization Details LastModified Time None Recorded Advance Directives Directive None Recorded Payers Insurance Date Sequence Insurance Name Policy Number Policy Ferguson Covered Member ID Ferguson Member ID Guarantor Name 12/06/2022 1 *SELF PAY* Ellyn Olson Notes Date Note Type Note Provider Name and Address Organization Details Recorded Time 12/07/19 23 text/htm l ROS as noted in the HPI PATIENT REPORTS HE IS HERE TO GET REFILLS ON HIS METOPROLOL AND FLUOXETINE HE HAS BEEN OUT OF THEM FOR ABOUT 1 MONTH AND HAS NO MORE REFILLS. PATIENT ALSO MENTIONS OCCASIONAL NUMBNESS IN 2 FINGERS ON HIS LEFT HAND AND LEFT FOOT NUMBNESS THAT IS VERY FREQUENT MANUEL VASQUEZ, [facility] [address] [place], [address], [facility], Tessa 12/06/2022 11:01:16 12/29/19 23 text/htm l Hypertension IM/FMReported by PatientHPIFor severity, patient reportsstage 2 (>140/>90 mmhg)but reportsmoderate. For quality, patient reportshere for check-up. Generalized Anxiety DisorderReported by PatientHPIFor associated symptoms, patient reportsrestlessnessandsleep disturbances. For severity, patient reportsmoderate. For context, patient reportsalcohol abuse. MEÑO STAPLES [facility] [address] [place], [address], [facility] 12/28/2022 14:13:25 02/08/20 23 text/htm l Hypertension IM/FMReported by PatientHPIFor associated symptoms, patient reportspalpitations,numbness, andtinglingbut reportsno headachesandno chest pain. For severity, patient reportssevere. For context, patient reportsemotional stress. Generalized Anxiety DisorderReported by PatientHPIFor associated symptoms, patient reportsexcess anxietyandhigh irritability(symptoms are improving, per patient). For severity, patient reportsmoderate. For context, patient reportsdepressionandalcohol abuse.ROS as noted in the HPI JULY COLVIN [address] [place], [address], [facility] 02/07/2023 11:34:08 03/03/20 23 text/htm l Skin LesionReported by PatientHPIFor location, patient reportstoe. For quality, patient reportspainful,tender, andsore. For severity, patient reportssevere. For duration, patient reports4 days. For alleviating factors, patient reportsoral antibiotics. For aggravating factors, patient reportsnone. For associated symptoms, patient reportsno fever,no cold symptoms,no nausea,no vomiting, andno diarrhea.ROS as noted in the HPI Walk In-He has had gout in his left big toe for about 4 days now. The pain is radiating into his foot & up his leg. His foot is also slightly swollen. He is in quite a bit of pain. PCP-JULY Colvin FNP [address] [place], [address], [facility] 03/03/2023 12:47:12
[2025-05-16 07:37] VITALS: BP 151/91; PULSE 77; RESP 17; TEMP 36.7; O2SAT 99; BMI 34.3
--- NOTE | 2025-05-16 08:01 | XRR_ITS ---
PROCEDURE INFORMATION: Exam: XR Left Knee Exam date and time: 05/16/2025 8:27 AM Age: 39 years old Clinical indication: Pain; Knee; Left; Additional info: Persistent lt patellar/knee pain after fall x 1 week ago TECHNIQUE: Imaging protocol: Radiologic exam of the left knee. Views: 3 views. COMPARISON: CR XR knee LT 3V* [id number] 05/06/2025 11:35 AM FINDINGS: Bones/joints: No acute fracture or malalignment. No worrisome lytic or blastic osseous lesion. No appreciable cortical erosion or periosteal reaction. Joint spaces are preserved. Small suprapatellar effusion. Soft tissues: Mild soft tissue swelling. No radiopaque foreign body or gas. XR/XR knee LT 3V* [id number] IMPRESSION: 1. No acute fracture or malaligment. 2. Mild knee soft tissue swelling. 3. Small suprapatellar effusion.
--- NOTE | 2025-05-16 08:02 | W.ED.EXTPRO ---
HPI - Extremity Problem General: Chief complaint: Extremity Injury, Lower Stated complaint: leg pain, stiffness Time Seen by Provider: 05/16/25 07:58 History of Present Illness: 39-year-old man who presents emergency room with left knee pain. He says he fell on it 3 weeks ago and it is not getting better. No obvious swelling or deformity. Says it hurts to bend it. His kneecap hurts. No redness. No swelling. Related Data Home Medications ?Medication ?Instructions ?Recorded ?Confirmed allopurinol 100 mg tablet 100 mg PO BID 08/02/23 08/02/23 (Zyloprim) buspirone 10 mg tablet 10 mg PO BID 08/02/23 08/02/23 losartan 50 mg tablet 50 mg PO QPM 08/02/23 08/02/23 metoprolol tartrate 50 mg tablet 50 mg PO DAILY 08/02/23 08/02/23 paroxetine HCl 20 mg tablet 20 mg PO DAILY 08/02/23 08/02/23 Previous Rx's ?Medication ?Instructions ?Recorded omeprazole 40 mg capsule,delayed 40 mg PO DAILY #30 caps 01/24/24 release naproxen 500 mg tablet (Naprosyn) 500 mg PO BID PRN pain #20 tabs 02/20/24 ondansetron 4 mg disintegrating 4 mg PO Q6H PRN nausea and 08/13/24 tablet vomiting #14 tabs ondansetron HCl 4 mg tablet 4 mg PO Q8H #30 tabs 12/06/24 methylprednisolone 4 mg tablets in See Rx Instructions PO .COMPLEX 04/23/25 a dose pack (Medrol (Carlos)) #21 ea dexamethasone 6 mg tablet 6 mg PO DAILY 5 days #5 tabs 05/16/25 diclofenac sodium 50 mg 50 mg PO BID PRN pain #14 tabs 05/16/25 tablet,delayed release Allergies Allergy/AdvReac Type Severity Reaction Status Date / Time cephalexin Allergy rash Verified 08/02/23 13:40 Penicillins Allergy swelling Verified 08/02/23 13:40 Review of Systems Narrative: Constitutional symptoms: Negative except as documented in HPI. Skin symptoms: Negative except as documented in HPI. Eye symptoms: Negative except as documented in HPI. ENMT symptoms: Negative except as documented in HPI. Respiratory symptoms: Negative except as documented in HPI. Cardiovascular symptoms: Negative except as documented in HPI. Gastrointestinal symptoms: Negative except as documented in HPI. Genitourinary symptoms: Negative except as documented in HPI. Musculoskeletal symptoms: Negative except as documented in HPI. Neurologic symptoms: Negative except as documented in HPI. Psychiatric symptoms: Negative except as documented in HPI. Endocrine symptoms: Negative except as documented in HPI. [facility] ED PFSH: Medical History (Updated 05/16/25 @ 09:04 by Rose Mary Gonzalez MD) Gout Anxiety Surgical History No pertinent past surgical history Social History Smoking and tobacco/nicotine status: never used tobacco/nicotine Alcohol intake: current Substance/Drug Use: never Physical Exam Narrative: EXAM NARRATIVE: General: Alert, no acute distress. Skin: warm and dry Head: Normocephalic Neck: Trachea midline Eye: Extraocular movements are intact. Ears, nose, mouth and throat: Oral mucosa moist Respiratory: Respirations are non-labored Musculoskeletal: No obvious deformity, no swelling. No redness. Limitation of range of motion secondary to pain Gastrointestinal: Abdomen does not appear distended Neurological: Alert and oriented, No focal neurological deficit observed. Psychiatric: Cooperative, appropriate mood & affect. Course Vital Signs: Vital signs: Vital Signs Temperature 98.1 F 05/16/25 07:37 Pulse Rate 77 05/16/25 07:37 Respiratory Rate 17 05/16/25 07:37 Blood Pressure 151/91 05/16/25 07:37 Pulse Oximetry 99 05/16/25 07:37 Oxygen Delivery Me thod Room Air 05/16/25 07:37 MDM - Extremity (Nontraumatic) Medical Decision Making Medical decision making: Differential diagnosis including but not limited to and based on the above HPI, review of systems and physical exam: In this patient with a musculoskeletal extremity traumatic injury and x-ray is being ordered to rule out fractures and dislocations. Orders placed to evaluate differential diagnosis based on the above differential, HPI and physical exam X-ray of left knee: No acute process. No fractures or dislocations. Films were interpreted by myself the emergency room provider and pending final radiology review. I reviewed the patient's medical record. Reexamination: Patient remained stable. No increased work of breathing. No altered mental status. No focal motor deficits. Discussed with patient that if he has soft tissue damage he needs to follow-up with Ortho for possible MRI. Assessment and plan: Knee pain - Discharged home - Discussed plan with patient. Answered any questions. - Evaluation and treatment of this problem were appropriate in the emergency setting. XR interpretation done by ED provider, pending radiology final review Discharge Plan Discharge Patient Disposition: Home Clinical Impression: Knee injury Condition: Stable Prescriptions: New dexamethasone 6 mg tablet 6 mg PO DAILY 5 Days Qty: 5 0RF diclofenac sodium 50 mg tablet,delayed release (DR/EC) 50 mg PO BID PRN (Reason: pain) Qty: 14 0RF No Action losartan 50 mg tablet 50 mg PO QPM Zyloprim 100 mg tablet 100 mg PO BID paroxetine HCl 20 mg tablet 20 mg PO DAILY buspirone 10 mg tablet 10 mg PO BID metoprolol tartrate 50 mg tablet 50 mg PO DAILY omeprazole 40 mg capsule,delayed release(DR/EC) 40 mg PO DAILY Qty: 30 1RF ondansetron 4 mg tablet,disintegrating 4 mg PO Q6H PRN (Reason: nausea and vomiting) Qty: 14 0RF Naprosyn 500 mg tablet 500 mg PO BID PRN (Reason: pain) Qty: 20 0RF ondansetron HCl 4 mg tablet 4 mg PO Q8H Qty: 30 0RF methylprednisolone [Medrol (Carlos)] 4 mg tablets,dose pack See Rx Instructions .ROUTE .COMPLEX Qty: 21 0RF Rx Instructions: orally per package directions Discharge Orders: Discharge ED (Routine); Ordered 05/16/25 Ordered By: Rose Mary Gonzalez Referrals: Anthony Lambert MD [Primary Care Provider, Family Practice] Josesito Gong MD [Physician, Orthopedics] - 4-7 days Referral Note: Please call for appointment if pain persists Discharge Diet: Usual diet Discharge Activity: Increase activity as tolerated Patient Instructions: Opioid Safety, Pain Management, Patient Portal & Yvette Instructions Activity Restrictions/Additional Instructions: Thank you for choosing [facility] for your healthcare needs today. You have been screened and evaluated and felt safe for discharge. Health conditions do change or evolve sometimes and as such it is important that you follow up with your Primary Doctor to be re checked, 3-5 days is a general good time frame for follow up. 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
== END 2025-05-16 09:13 | disposition home or self-care (01) ==
PROVIDERS: Emergency Provider Emergency Medicine; PCP Family Medicine
DX: S89.92XA Unspecified injury of left lower leg, initial encounter (principal); W19.XXXA Unspecified fall, initial encounter
CPT/HCPCS: 73562; 99283; J9999

== ENCOUNTER 2025-07-22 10:15 | Emergency (ER) | payer BC, MEDICAID, SELFPAY ==
--- OUTSIDE RECORDS SUMMARY | 2025-07-22 10:22 | XMS_ITS | Data Portability ---
Author Organization [facility] Honorio Brooke [facility], [facility] Address [address] [place] [address] Care Team Providers Care Seasonal Sales Associate Name Role Phone BELMEÑO Primary Care Provider [...] Orders colchicine 0.6 mg tablet 2022 023 [facility] [address], [address], [place], [address], 3 12:47:05 metoprolol succinate ER 50 mg tablet,exte nded release 24 hr 2022 023 [facility] [address], [address], [place], [address], 3 11:33:48 losartan 50 mg tablet 2022 023 [facility] [address], [address], [address], 3 11:33:49 fluoxetine 40 mg capsule 2022 023 [facility] [address], [address], [place], [address], 3 11:33:49 metoprolol succinate ER 50 mg tablet,exte nded release 24 hr 2022 023 [facility] [address], [address], [place], [address], 3 14:11:17 losartan 50 mg tablet 2022 023 [facility] [address], [address], [place], [address], 3 14:11:15 hydroxyzine HCl 25 mg tablet 2022 023 [facility] [address], [address], [place], [address], 3 14:11:16 fluoxetine 40 mg capsule 2022 023 [facility] [address], [address], [address], 3 14:11:18 metoprolol succinate ER 50 mg tablet,exte nded release 24 hr 2022 023 [facility] [address], [address], [place], [address], 3 10:18:52 fluoxetine 20 mg capsule 2022 023 [facility] [address], [address], [place], [address], 3 11:15:42 Patient TargetsNo targets recorded. Patient Instructions Encounter Date Encounter Id Patient Instructions Last Modified By Organization Details Last Modified Time 12/06/2022 [id number] Discussed taking BP at home. Patient reports he does not have a BP cuff at home. Encouraged to get one to monitor at home. Discussed importance of making a follow up patient with PCP to continue medications. [email or web address] Not available 12/06/2022 10:06:10 12/28/2022 [id number] Call or return for questions or concerns. Not available 12/28/2022 14:10:02 02/07/2023 [id number] Call or return for questions or concerns. [...] Time Harmful pattern of use of alcohol 34762023 Active 2022 DARRELL miramontes [facility] 13:19:18 Essential hypertension 56655824 Active 2022 MEÑO STAPLES [address], [address], [facility] 3 11:32:37 Mixed anxiety and depressive disorder 467561743 Active 2022 MEÑO STAPLES [address], [address], [facility] 3 11:32:40 Problem Notes None recorded. Procedures Surgical History Date Name Laterality Status Provider Name and Address Organization Details Recorded Time Appendectomy completed DARRELL BRICENO [facility] 12/27/2022 13:18:34 Imaging Results None recorded. Procedure Notes None recorded. Medical Equipment None Reported. Allergies Allergen ID Allergen Name Allergen Category Reaction Reaction Severity Criticality Documentation Date Start Date Code Code System Note Provider Name and Address Organization Details Recorded Time 3761 lisinopri l medicatio n Not available Not available Not available 12/27/2022 19420 RxNorm Cough DARRELL BRICENO kulwinder [facility] 3 13:15:47 3762 cephalexi n medicatio n Not available Not available Not available 12/27/2022 2231 RxNorm DARRELL miramontes [facility] 3 13:16:02 3763 Product containin g penicilli n (product) medicatio n anaphylax is severe Not available 12/27/2022 51145 8001 [facility] 13:16:12 64634 penicilli n V potassium medicatio n anaphylax is Not available Not available 02/24/202317717 5 RxNorm React ion: Anaph ylaxi s; Comme nt: Recor ded 09/06 9:31A M by Willie mcallister, CMT, Offic e Visit ; Promo brent; Clara washburn ce: *; Reaso n: Drug aller gy; ; Not Available [facility] 3 02:27:08 Medications Name Sig Start Date [...] mass index (BMI) Body weight Oxygen saturation Heart rate Respiratory rate Body temperature Systolic And Diastolic Provider Name and Address Organization Details Last Updated DateTime 3 162.56 cm 35.7 kg/m2 30362.2 1 g 99 % 82 /min 20 /min 97.9 [degF] 142/98 mm[Hg] JOJO PHILLIPS [facility] 3 09:43:46 Date Recorded Body height Body mass index (BMI) Body weight Oxygen saturation Heart rate Respiratory rate Body temperature Systolic And Diastolic Systolic And Diastolic Provider Name and Address Organization Details Last Updated DateTime 3 167.64 cm 32.9 kg/m2 09825.8 4 g 98 % 92 /min 24 /min 98 [degF] 160/104 mm[Hg] 164/114 mm[Hg] DARRELL BRICENO [facility] 3 13:58:37 Date Recorded Body height Body mass index (BMI) Body weight Oxygen saturation Heart rate Body temperature Systolic And Diastolic Provider Name and Address Organization Details Last Updated DateTime 3 167.64 cm 33.2 kg/m2 47799.0 3 g 98 % 94 /min 98.3 [degF] 184/110 mm[Hg] JANAK CHERRY [facility] 3 11:14:48 Date Recorded Body height Body mass index (BMI) Body weight Oxygen saturation Heart rate Respiratory rate Body temperature Systolic And Diastolic Provider Name and Address Organization Details Last Updated DateTime 3 167.64 cm 32.3 kg/m2 22955.4 7 g 99 % 101 /min 20 /min 97.1 [degF] 130/80 mm[Hg] Carrie Staley [facility] 3 12:17:15 Social History Question Answer Notes LastModified by [employer] ion Details LastModified Time Tobacco Smoking Status Never Smoker [facility] 12/27/2022 13:18:19 Have You Ever Been Counseled For Unhealthy Alcohol Use? Yes [email or web address] Information not available 12/27/2022 How Many Days In The Past Year Have You Consumed 5 Or More Drinks? 364 [email or web address] Information not available 12/28/2022 Sex: Unknown Functional Status Question Answer Note LastModified by [employer] ion Details LastModified Time How many times per week do you consume alcohol? 5-7 times per week [email or web address] Information not available 12/27/2022 Do you or have you ever used any other forms of tobacco or nicotine? Yes [email or web address] Information not available 12/27/2022 What is your level of alcohol consumption? Heavy 12 pack of beer per day. [email or web address] Information not available 12/28/2022 Do you or have you ever used smokeless tobacco? Currently chews tobacco [email or web address] Information not available 12/27/2022 Mental Status None recorded. Family History Nothing Reported Notes:Mother; Madie. No Bipola r or psych., Father; Unknown, 1 Bro, 1 Sis; No bipolar., None: Denied Medical History Condition Response Anxiety Disorder Y Hypertension Y Immunizations Vaccine Type Date Status Note Provider Nam e and Address Organization Details Recorded Time MMR 0 completed MEÑO STAPLES [facility] [address] [place], [address], [facility] 12/28/2022 14:05:43 DTP 0 completed MEÑO STAPLES, [facility] [address] [place], [address], [facility] 12/28/2022 14:05:43 DTP 0 completed MEÑO STAPLES, [facility] [address] [place], [address], [facility] 12/28/2022 14:05:43 DTP 1 completed MEÑO STAPLES, [facility] [address] [place], [address], [facility] 12/28/2022 14:05:43 Hep B, unspecified formulation 9 completed MEÑO STAPLES, [facility] [address] [place], [address], [facility] 12/28/2022 14:05:43 Hep B, unspecified formulation 8 completed MEÑO STAPLES, [facility] [address] [place], [address], [facility] 12/28/2022 14:05:43 Hep B, unspecified formulation 8 completed MEÑO STAPLES, [facility] [address] [place], [address], [facility] 12/28/2022 14:05:43 OPV, trivalent 0 completed MEÑO STAPLES, [facility] [address] [place], [address], [facility] 12/28/2022 14:05:43 OPV, trivalent 1 completed MEÑO STAPLES, [facility] [place], [address], [facility] 12/28/2022 14:05:43 OPV, trivalent 1 completed MEÑO STAPLES [address], [address], [facility] 12/28/2022 14:05:43 Td (adult), 2 Lf tetanus toxoid, preservative free, adsorbed 2 completed MEÑO STAPLES [address], [address], [facility] 12/28/2022 14:05:43 tetanus toxoid, unspecified formulation 2 completed Not Available [facility] 02/24/2023 02:24:53 Past Encounters Encounter ID Performer Location Encounter Start Date Encounter Closed Date Diagnosis/Indication Diagnosis SNOMED-CT Code Diagnosis ICD10 Code Diagnosis IMO Codes Diagnosis Note [id number] MANUEL VASQUEZ [facility] ([facility]) [address] [place] [address] 12/06/2022 09:21:21 12/06/2022 13:54:07 Depressive disorder 23865032 F32.A Essential hypertension 73571200 I10 [id number] MEÑO STAPLES [facility] ([facility]) [address] [place] [address] 12/28/2022 13:47:52 12/28/2022 14:20:43 Mixed anxiety and depressive disorder 211685647 F41.8 Essential hypertension 38089543 I10 [id number] MEÑO STAPLES [facility] ([facility]) [address] [place] [address] 02/07/2023 10:19:36 02/07/2023 12:12:58 Mixed anxiety and depressive disorder 001277134 F41.8 Essential hypertension 84301814 I10 Patient stopped his medication s. He was counseled to restart them. Monitor blood pressure at home. [id number] GENTRY SAWYER [facility] [address] [place] [address] 03/03/2023 12:04:10 03/03/2023 13:36:08 Acute gout 516005719 M10.9 Health Concerns Section Related Observation LastModified [...] NUMBNESS THAT IS VERY FREQUENT MANUEL VASQUEZ, [facility] [address] [place] [address], [address], [facility] 12/06/2022 11:01:16 12/29/19 23 text/htm l Hypertension IM/FMReported by PatientHPIFor severity, patient reportsstage 2 (>140/>90 mmhg)but reportsmoderate. For quality, patient reportshere for check-up. Generalized Anxiety DisorderReported by PatientHPIFor associated symptoms, patient reportsrestlessnessandsleep disturbances. For severity, patient reportsmoderate. For context, patient reportsalcohol abuse. MEÑO STAPLES [facility] [address] [place], [address], [facility] 12/28/2022 14:13:25 02/08/20 23 text/htm l Hypertension IM/FMReported by PatientHPIFor associated symptoms, patient reportspalpitations,numbness, andtinglingbut reportsno headachesandno chest pain. For severity, patient reportssevere. For context, patient reportsemotional stress. Generalized Anxiety DisorderReported by PatientHPIFor associated symptoms, patient reportsexcess anxietyandhigh irritability(symptoms are improving, per patient). For severity, patient reportsmoderate. For context, patient reportsdepressionandalcohol abuse.ROS as noted in the HPI JULY COLVIN [address] [place] [address], [phone], [facility] 02/07/2023 11:34:08 03/03/20 23 text/htm l [...] in quite a bit of pain. PCP-JULY Colvin, [facility] [address] [place] [address], [phone], [facility], Tessa 03/03/2023 12:47:12
[2025-07-22 10:25] VITALS: BP 151/105; PULSE 88; TEMP 36.8; O2SAT 99
--- NOTE | 2025-07-22 11:04 | W.ED.HA ---
HPI - Headache General: Chief Complaint: Headache Stated Complaint: headache n/v Time Seen by Provider: 07/22/25 10:58 Source: patient Mode of arrival: ambulatory Limitations: no limitations History of Present Illness: Patient is a 39-year-old male who presents the emergency department complaining of a headache and generally feeling unwell for the past 3 days. He states that he has had significant diarrhea, has decreased appetite due to his nausea, overall feels weak and dehydrated. Denies any sick contacts. No chest pain or shortness of breath but he states he will have intermittent palpitations. No fevers or chills at this time. His vitals are stable. Denies any pertinent past medical history. States that his urination has decreased secondary to his decreased intake of fluids. No blood in his diarrhea. No recent antibiotic use. MD elicited complaint: headache Onset (ago): day(s) (3) Associated symptoms: Reports malaise and nausea; Deny chest pain, fever(s), lightheadedness, rash or vomiting Related Data Home Medications ?Medication ?Instructions ?Recorded ?Confirmed allopurinol 100 mg tablet 100 mg PO BID 08/02/23 07/22/25 (Zyloprim) buspirone 10 mg tablet 10 mg PO BID 08/02/23 07/22/25 losartan 50 mg tablet 50 mg PO QPM 08/02/23 07/22/25 metoprolol tartrate 50 mg tablet 50 mg PO DAILY 08/02/23 07/22/25 paroxetine HCl 20 mg tablet 20 mg PO DAILY 08/02/23 07/22/25 Previous Rx's ?Medication ?Instructions ?Recorded omeprazole 40 mg capsule,delayed 40 mg PO DAILY #30 caps 01/24/24 release naproxen 500 mg tablet (Naprosyn) 500 mg PO BID PRN pain #20 tabs 02/20/24 ondansetron HCl 4 mg tablet 4 mg PO Q8H #30 tabs 12/06/24 diclofenac sodium 50 mg 50 mg PO BID PRN pain #14 tabs 05/16/25 tablet,delayed release ondansetron 4 mg disintegrating 4 mg PO TID PRN nausea and 07/22/25 tablet vomiting #30 tabs Allergies Allergy/AdvReac Type Severity Reaction Status Date / Time cephalexin Allergy rash Verified 07/22/25 10:36 Penicillins Allergy swelling Verified 07/22/25 10:36 Review of Systems General: Reports: 10 or more systems reviewed and unremarkable except in HPI and below Const: Reports: body aches, change in appetite, fatigue, malaise and other (feels dehydrated); Denies: fever(s) or chills Eyes: Denies: change in vision ENMT: Denies: throat pain, ear or mastoid pain or nasal discharge Card: Reports: palpitations; Denies: chest pain, swelling of feet/ankles or lightheadedness Resp: Denies: dyspnea, productive cough or wheezing GI: Reports: nausea and diarrhea; Denies: abdominal pain, vomiting or constipation : Denies: flank pain, difficulty urinating, dysuria or urinary frequency Musc: Denies: neck pain, back pain or joint pain Skin/Breast: Denies: rash Neuro: Reports: headache(s); Denies: numbness in extremities or weakness in extremities PFSH ED PFSH: Medical History Gout Anxiety Surgical History No pertinent past surgical history Social History Smoking and tobacco/nicotine status: never used tobacco/nicotine Alcohol intake: current Substance/Drug Use: never Physical Exam Const: COMMON NORMALS: no limitations GENERAL APPEARANCE: cooperative and well developed ORIENTATION/CONSCIOUSNESS: Yes awake OTHER: tired, nontoxic appearing HENMT: COMMON NORMALS: normocephalic, atraumatic and hearing grossly normal bilaterally HEAD & SCALP: normocephalic and atraumatic Eye: COMMON NORMALS: Equal, round and reactive pupils present, EOMs intact bilaterally and conjunctivae normal CONJUNCTIVA: Yes conjunctivae normal PUPIL: Yes Equal, round and reactive pupils present Neck/C-Spine: COMMON NORMALS: full ROM, supple and no JVD Resp: COMMON NORMALS: normal respiratory effort, No retractions, No use of accessory muscles and clear to auscultation bilaterally AUSCULTATION: clear to auscultation bilaterally Cardio: COMMON NORMALS: no JVD, regular rate, regular rhythm, No clicks present (Cardio), No murmurs present (Cardio) and No rub (Cardio) RATE: regular rate RHYTHM: regular rhythm GI: COMMON NORMALS: Normal to inspection, nondistended, normoactive bowel sounds present, Soft to palpation and non-tender AUSCULTATION: Yes normoactive bowel sounds PALPATION: Yes Soft to palpation RECTAL EXAM: Yes deferred Extremity: COMMON NORMALS: normal to inspection, full ROM and capillary refill normal Skin: COMMON NORMALS: no rashes or lesions noted GENERAL SKIN EXAM: no rashes or lesions noted Course Vital Signs: Vital signs: Vital Signs Temperature 98.2 F 07/22/25 10:25 Pulse Rate 88 07/22/25 10:25 Blood Pressure 163/110 07/22/25 11:30 Pulse Oximetry 97 07/22/25 11:30 Oxygen Delivery Me thod Room Air 07/22/25 11:09 MDM - Headache Medical Decision Making Patient presented with headache, diarrhea, and signs and symptoms of dehydration. However the physical exam overall reassuring he did not appear toxic, had no abdominal pain, and vitals have been stable. No sick contacts were reported however I do suspect viral etiology likely gastroenteritis due to his normal laboratory evaluation. There is no leukocytosis, no evidence of kidney injury, and no electrolyte derangement. His COVID flu RSV swab is negative, suspect enterovirus, he has improvement after fluids and antiemetics here. He is stable for discharge home with symptomatic therapy for home and to advance his diet slowly and as tolerated. He will return with any worsening. Lab Data 07/22/25 11:13 07/22/25 11:13 Laboratory Results WBC 10.15 10^3/uL (3.29-11.43) 07/22/25 11:13 RBC 4.47 10^6/uL (3.85-5.65) 07/22/25 11:13 Hgb 14.50 g/dL (11.27-16.99) 07/22/25 11:13 Hct 42.8 % (37-53) 07/22/25 11:13 MCV 95.7 fl (82-101) 07/22/25 11:13 MCH 32.4 pg (27-33) 07/22/25 11:13 MCHC 33.9 g/dL (30-55) 07/22/25 11:13 RDW 12.4 % (12.1-15.1) 07/22/25 11:13 Plt Count 252 10^3/cmm (157-399) 07/22/25 11:13 MPV 9.1 fL (7.4-10.4) 07/22/25 11:13 Neut % (Auto) 67.3 % 07/22/25 11:13 Lymph % (Auto) 18.3 % 07/22/25 11:13 Toombs % (Auto) 12.1 % 07/22/25 11:13 Eos % (Auto) 1.3 % 07/22/25 11:13 Baso % (Auto) 0.3 % 07/22/25 11:13 Neut # (Auto) 6.83 10^3/uL (1.8-7.7) 07/22/25 11:13 Lymph # (Auto) 1.9 10^3/uL (0.8-4.8) 07/22/25 11:13 Toombs # (Auto) 1.2 10^3/uL (0.2-0.9) H 07/22/25 11:13 Eos # (Auto) 0.1 10^3/uL (0.0-0.8) 07/22/25 11:13 Baso # (Auto) 0.0 10^3/uL (0.0-0.1) 07/22/25 11:13 Nucleated RBC % (auto) 0 % 07/22/25 11:13 Nucleated RBCs # 0.0 /100WBC 07/22/25 11:13 Sodium 134 mmol/L (136-145) L 07/22/25 11:13 Potassium 3.7 mmol/L (3.5-5.1) 07/22/25 11:13 Chloride 100 mmol/L (98-107) 07/22/25 11:13 Carbon Dioxide 21 mmol/L (22-29) L 07/22/25 11:13 Anion Gap 16.7 (5-19) 07/22/25 11:13 BUN 7 mg/dL (6-20) 07/22/25 11:13 Creatinine 0.8 mg/dL (0.7-1.2) 07/22/25 11:13 GFR Calculation 108.8 mL/min (90-130) 07/22/25 11:13 Glucose 128 mg/dL (65-115) H 07/22/25 11:13 Calculated Osmolality 278 mOsm/kg (285-295) L 07/22/25 11:13 Calcium 9.3 mg/dL (8.5-10.5) 07/22/25 11:13 Total Bilirubin 0.3 mg/dL (0.15-1.2) 07/22/25 11:13 AST 31 U/L (0-40) 07/22/25 11:13 ALT 26 U/L (0-41) 07/22/25 11:13 Alkaline Phosphatase 75 U/L (40-130) 07/22/25 11:13 Total Protein 7.8 g/dL (6.6-8.7) 07/22/25 11:13 Albumin 4.6 g/dL (3.5-5.2) 07/22/25 11:13 Globulin 3.2 g/dL (1.3-4.6) 07/22/25 11:13 Influenza A (PCR) Negative (Negative) 07/22/25 11:00 Influenza Type B (PCR) Negative (Negative) 07/22/25 11:00 RSV (PCR) Negative (Negative) 07/22/25 11:00 SARS-CoV-2 (PCR) Negative (Negative) 07/22/25 11:00 No radiology studies performed this visit Discharge Plan Discharge Patient Disposition: Home Clinical Impression: Viral gastroenteritis, Acute dehydration Condition: Stable Prescriptions: New ondansetron 4 mg tablet,disintegrating 4 mg PO TID PRN (Reason: nausea and vomiting) Qty: 30 0RF No Action losartan 50 mg tablet 50 mg PO QPM Zyloprim 100 mg tablet 100 mg PO BID paroxetine HCl 20 mg tablet 20 mg PO DAILY buspirone 10 mg tablet 10 mg PO BID metoprolol tartrate 50 mg tablet 50 mg PO DAILY omeprazole 40 mg capsule,delayed release(DR/EC) 40 mg PO DAILY Qty: 30 1RF Naprosyn 500 mg tablet 500 mg PO BID PRN (Reason: pain) Qty: 20 0RF ondansetron HCl 4 mg tablet 4 mg PO Q8H Qty: 30 0RF diclofenac sodium 50 mg tablet,delayed release (DR/EC) 50 mg PO BID PRN (Reason: pain) Qty: 14 0RF Discharge Orders: Discharge ED (Routine); Ordered 07/22/25 Ordered By: Bernard Cooper Referrals: Anthony Lambert MD [Primary Care Provider, [facility]] Patient Instructions: Patient Portal & Yvette Instructions Activity Restrictions/Additional Instructions: Discharge Instructions: Viral Gastroenteritis and Dehydration Diagnosis: Viral Gastroenteritis with Acute Dehydration Treatment Provided Today: You received 2 liters of intravenous fluids and anti-nausea medication in the emergency department. Your blood work (CBC and CMP) was normal, and your respiratory virus testing (COVID, flu, RSV) was negative. Your symptoms are most consistent with a viral infection of the stomach and intestines, possibly an enterovirus. Medications: - Ondansetron (Zofran) 4 mg: Take one tablet by mouth every 8 hours as needed for nausea or vomiting. This prescription has been sent to your pharmacy. Home Care Instructions: Hydration: - Continue drinking plenty of fluids to replace what you lose through diarrhea and vomiting - Drink oral rehydration solutions (such as Pedialyte or CeraLyte) rather than sports drinks, juice, or soda, as these are specifically designed to replace electrolytes - Aim for at least 2 liters of fluid daily, and drink additional fluids to replace each episode of diarrhea or vomiting - Small, frequent sips are better tolerated than large amounts at once Diet: - Start eating solid foods as soon as you can tolerate them - early refeeding helps you recover faster - Begin with bland, easily digestible foods such as toast, crackers, rice, bananas, soups, and mashed potatoes - Advance to your normal diet as tolerated over the next 24-48 hours - You may temporarily avoid dairy products except yogurt, as diarrhea can cause temporary lactose intolerance - Avoid fatty foods, caffeine, and alcohol until symptoms resolve Activity: - Rest as needed - Wash your hands frequently with soap and water, especially after using the bathroom and before eating, to prevent spreading the infection to others - Avoid preparing food for others until symptoms have resolved for at least 48 hours Expected Course: Most viral gastroenteritis improves within 3-5 days. Diarrhea may persist for several days even as you start feeling better. RETURN TO THE EMERGENCY DEPARTMENT OR CALL YOUR DOCTOR IF YOU DEVELOP: - Signs of severe dehydration: - Inability to keep down any fluids for more than 12 hours - Decreased urination (not urinating for 8-12 hours or dark-colored urine) - Severe dizziness or lightheadedness when standing - Confusion or altered mental status - Rapid heartbeat or feeling faint - Worsening symptoms: - Blood in your stool or black, tarry stools - Severe abdominal pain that is getting worse or is constant - High fever (temperature greater than 101.5?F or 38.6?C) or fever lasting more than 2-3 days - Vomiting that persists despite taking ondansetron - Diarrhea lasting more than 7 days or worsening after initial improvement - New concerning symptoms: - Severe weakness or inability to stand - Chest pain or difficulty breathing - Any other symptoms that concern you Follow-Up: Follow up with your primary care doctor in 3-5 days if symptoms are not improving, or sooner if you have any concerns. Print Language: Slovenian Coding Level of Care Code ED [place] Actor for Mack Leung
[2025-07-22 11:09] VITALS: BP 163/110; O2SAT 98
[2025-07-22 11:20] LABS: Hematocrit 42.8 % (37-53); Hemoglobin 14.50 g/dL (11.27-16.99); Mean Corpuscular HGB Conc 33.9 g/dL (30-55); Mean Corpuscular Hemoglobin 32.4 pg (27-33); Mean Corpuscular Volume 95.7 fl (82-101); Nucleated Red Blood Cells % 0 %; Platelet Count 252 10^3/cmm (157-399); Red Blood Count 4.47 10^6/uL (3.85-5.65); White Blood Count 10.15 10^3/uL (3.29-11.43)
[2025-07-22] MEDS: ondansetron 2 mg/ML SDV 2 mL 4 MG IVP (11:23)
[2025-07-22 11:30] VITALS: BP 163/110; O2SAT 97
[2025-07-22 11:40] LABS: Alanine Aminotransferase 26 U/L (0-41); Albumin Level 4.6 g/dL (3.5-5.2); Alkaline Phosphatase 75 U/L (40-130); Anion Gap 16.7 (5-19); Aspartate Amino Transferase 31 U/L (0-40); Blood Urea Nitrogen 7 mg/dL (6-20); Calcium 9.3 mg/dL (8.5-10.5); Carbon Dioxide 21 mmol/L (22-29); Chloride 100 mmol/L (98-107); Globulin 3.2 g/dL (1.3-4.6); Glucose 128 mg/dL (65-115); Osmolality Calculated 278 mOsm/kg (285-295); Potassium 3.7 mmol/L (3.5-5.1); Sodium 134 mmol/L (136-145); Total Protein 7.8 g/dL (6.6-8.7)
[2025-07-22 11:54] LABS: Respiratory Syncytial Virus Ce NEGATIVE (Negative); SARS-CoV-2 PCR NEGATIVE (Negative)
[2025-07-22 12:19] VITALS: BP 149/96; O2SAT 96
[2025-07-22 13:03] VITALS: BP 139/93; PULSE 73; RESP 17; O2SAT 99
== END 2025-07-22 13:04 | disposition home or self-care (01) ==
PROVIDERS: Emergency Provider Physician Assistant; PCP Family Medicine
DX: A08.4 Viral intestinal infection, unspecified (principal); E86.0 Dehydration; Z11.52 Encounter for screening for COVID-19
CPT/HCPCS: 36415; 80053; 85025; 87637; 96374; 99284; J2405; J7030; J9999